=== PATIENT | male | born 1965 | race Caucasian/White ===

== ENCOUNTER 2017-07-12 16:24 | Emergency (ER) | payer OTHER ==
[~2017-07-12] VITALS: Ht 175.3 cm; Wt 85.6 kg
[~2017-07-12 16:24] MED LIST: ASPI81TA28 PO; ATOR-26 PO; CLON1TAB3 PO; ISOS60TA25 PO; LISI-725 PO; LORA-741 PO; METO-551 PO; METO50TA16 PO; NTRGSL/4 UT; PRLSR20 PO; TRAZ50TA35 PO
[2017-07-12 16:28] VITALS: TEMP 37.1; Ht 175.3 cm; Wt 85.6 kg
--- NOTE | 2017-07-12 16:50 | EMERGENCY ROOM VISIT NOTE ---
History First contact with patient: 16:31 Chief Complaint: FLU LIKE SX Stated Complaint: FLU History of Present Illness The patient is a 52 year old male who presents to the Emergency Room with complaints of flu like symptoms which started yesterday. c/o dry cough, headache, vomiting X2, fevers/chills and sweating. denies chest tightness or difficulty breathing or wheezing. c/o body aches and headaches. did not receive flu vaccine but was exposed to daughter with flu. h/o smoking - smokes about a pack of cigarettes/day. denies urinary complaints Review of Systems See HPI for pertinent positives & negatives. A total of 10 systems reviewed and were otherwise negative. Past Medical/Surgical History Medical Problems: (1) Cancer (2) Diabetes (3) Heart disease (4) Heart disease (5) History of orthopedic surgery (6) HTN (hypertension) (7) HTN (hypertension) (8) Hyperlipemia (9) [place] (myocardial infarction) (10) Pneumonia (11) Seizure Family History Cancer Diabetes mellitus FH: heart disease Hypertension Social History Smoking Status: Current Every Day Smoker Alcohol Use: occasionally Drug Use: none Marital Status: in relationship Housing Status: lives with family Occupation Status: unemployed Current/Historical Medications Scheduled Aspirin (Aspirin Ec), 81 MG PO DAILY Atorvastatin (Lipitor), 80 MG PO HS Clonazepam (Klonopin), 1 MG PO TID Isosorbide Mononitrate Ext Rel (Imdur Ext Rel), 60 MG PO QAM Lisinopril (Zestril), 20 MG PO DAILY Metoprolol Tartrate (Lopressor), 100 MG PO QAM Metoprolol Tartrate (Lopressor) (Lopressor), 50 MG PO HS Oseltamivir Phosphate (Tamiflu), 75 MG PO BID Scheduled PRN Benzonatate (Tessalon Perles), 100 MG PO Q8 PRN for Cough Nitroglycerin (Nitrostat), 0.4 MG UT UD PRN for Chest Pain Trazodone Hcl (Trazodone), 50 MG PO HS PRN for Sleep Physical Exam Vital Signs Date Time Temp Pulse Resp B/P (MAP) Pulse Ox O2 Delivery O2 Flow Rate FiO2 07/12/17 18:57 74 97 07/12/17 18:07 71 20 136/87 98 Room Air 07/12/17 16:28 37.1 73 20 139/86 97 Room Air Physical Exam GENERAL: Patient is in no acute distress. HEENT: No acute trauma, normocephalic atraumatic, mucous membranes moist, no nasal congestion, no scleral icterus. NECK: No stridor, no adenopathy, no meningismus, trachea is midline. LUNGS: Clear to auscultation bilaterally, no wheeze, no rhonchi, breath sounds equal. HEART: Without murmurs gallops or rubs, regular rate and rhythm. ABDOMEN: Soft, nontender, bowel sounds positive, no hernias, no peritonitis. EXTREMITIES: No cyanosis or edema, full range of motion of all the joints without pain or difficulty, no signs for acute trauma. NEUROLOGIC: Oriented x 3, no acute motor or sensory deficits, no focal weakness. SKIN: No rash, no jaundice, no diaphoresis. Medical Decision & Procedures ER Provider Diagnostic Interpretation: CHEST 2 VIEWS ROUTINE CLINICAL HISTORY: cough dyspnea COMPARISON STUDY: 02/16/2016 FINDINGS: The bones soft tissues and hemidiaphragms are normal. The cardiomediastinal silhouette is normal. The lungs are clear. The pulmonary vasculature is normal. IMPRESSION: Negative chest. Laboratory Results Test 07/12/17 16:45 Influenza Type A (RT-PCR) POS for Influ A (NEG) Influenza Type B (RT-PCR) Neg for Influ B (NEG) Medical Decision Prior records/ancillary studies reviewed. Triage Nursing notes reviewed. Additional history obtained from the patient. The patient's history was concerning for flu like symptoms Differential diagnosis: Etiologies such as viral syndrome, otitis, pharyngitis, pneumonia, influenza, meningitis, urinary tract infection, sepsis, bacteremia, as well as others were entertained. Physical examination: as above ER treatment provided: CXR and influenza serology was obtained On reassessment the patient felt better. Diagnostics interpreted by me: Influenza A was positive Imaging studies: CXR was negative This appears to be consistent with Influenza. By the evaluation outlined above emergent etiologies such as otitis, pharyngitis, pneumonia, meningitis, urinary tract infection, sepsis, bacteremia, as well as others were deemed relatively unlikely. The patient was informed about the findings as listed above. All questions were answered and he was pleased with the treatment. Return instructions were outlined and the patient was discharged in stable condition. Outpatient prescription management: Tamiflu 75 mg BID X5 days Referral: The patient was referred back to their primary care physician for follow-up in 2 to 3 days for a recheck of the current condition. 52-year-old male presented with flulike symptoms with fevers/chills, body aches and was exposed to influenza. Chest x-ray was obtained which was negative for any pneumonia. Influenza serology came back positive for influenza A. He was discharged in stable condition with Tamiflu 75 mg twice a day for 5 days and recommended to follow-up with his PCP in the next 2 or 3 days Impression Primary Impression: Influenza A Departure Information Prescriptions Benzonatate (Tessalon Perles) 100 Mg Cap 100 MG PO Q8 Y for Cough, #20 CAP Prov: Ulisses Lockett M.D. 07/12/17 Oseltamivir Phosphate (Tamiflu) 75 Mg Cap 75 MG PO BID, #10 CAP Prov: Ulisses Lockett M.D. 07/12/17 Referrals Philippe Leon M.D. (PCP) Patient Instructions My [facility] Resident Tracking Resident Involvement: Resident Care Provided Care Provided: Adult ED
--- NOTE | 2017-07-12 17:07 | DIAGNOSTIC IMAGING REPORT ---
CHEST 2 VIEWS ROUTINE CLINICAL HISTORY: cough dyspnea COMPARISON STUDY: 02/16/2016 FINDINGS: The bones soft tissues and hemidiaphragms are normal. The cardiomediastinal silhouette is normal. The lungs are clear. The pulmonary vasculature is normal. IMPRESSION: Negative chest. The above report was generated using voice recognition software. It may contain grammatical, syntax or spelling errors. Electronically signed by: Lm Olguin M.D. 07/12/2017 5:06 PM Dictated Date/Time: 07/12/2017 5:05 PM
[2017-07-12 18:01] LABS: INFLUENZA A PCR POS for Influ A (NEG); INFLUENZA B PCR Neg for Influ B (NEG)
--- NOTE | 2017-07-12 18:06 | EMERGENCY ROOM VISIT NOTE ---
History Report prepared by Aj: Rhonda Lux Under the Supervision of: Dr. Ulisses Lockett M.D. First contact with patient: 16:31 Chief Complaint: FLU LIKE SX Stated Complaint: FLU History of Present Illness The patient is a 52 year old male who presents to the Emergency Room with complaints of worsening flu-like symptoms since yesterday. The patient reports headache, cough, congestion, vomiting, and diffuse body aches. He has felt feverish but has not checked his temperature. His daughter was recently sick with similar symptoms and diagnosed with influenza. He has been taking Tylenol for his symptoms. The patient denies chest pain and shortness of breath. Source of History: patient Onset: yesterday Position: other (global) Quality: other (flu-like) Timing: worsening Modifying Factors (Relieving): tylenol Associated Symptoms: + headache, + cough, + vomiting, No chest pain, No SOB Review of Systems See HPI for pertinent positives & negatives. A total of 10 systems reviewed and were otherwise negative. Past Medical & Surgical Medical Problems: (1) Cancer (2) Diabetes (3) Heart disease (4) Heart disease (5) History of orthopedic surgery (6) HTN (hypertension) (7) HTN (hypertension) (8) Hyperlipemia (9) [place] (myocardial infarction) (10) Pneumonia (11) Seizure Family History Cancer Diabetes mellitus FH: heart disease Hypertension Social History Smoking Status: Current Every Day Smoker Alcohol Use: occasionally Drug Use: none Marital Status: in relationship Housing Status: lives with family Occupation Status: unemployed Current/Historical Medications Scheduled Aspirin (Aspirin Ec), 81 MG PO DAILY Atorvastatin (Lipitor), 80 MG PO HS Clonazepam (Klonopin), 1 MG PO TID Isosorbide Mononitrate Ext Rel (Imdur Ext Rel), 60 MG PO QAM Lisinopril (Zestril), 20 MG PO DAILY Metoprolol Tartrate (Lopressor), 100 MG PO QAM Metoprolol Tartrate (Lopressor) (Lopressor), 50 MG PO HS Scheduled PRN Nitroglycerin (Nitrostat), 0.4 MG UT UD PRN for Chest Pain Trazodone Hcl (Trazodone), 50 MG PO HS PRN for Sleep Allergies Coded Allergies: Morphine (Verified Adverse Reaction, Intermediate, NAUSEA/VOMITING, ) Physical Exam Vital Signs Date Time Temp Pulse Resp B/P (MAP) Pulse Ox O2 Delivery O2 Flow Rate FiO2 07/12/17 16:28 37.1 73 20 139/86 97 Room Air Physical Exam Constitutional: Vital signs reviewed. Eyes: Pupils are equal round reactive to light. Conjunctiva are noninjected. ENT: Pharynx is clear without erythema or exudate. Mucous membranes are moist. Neck supple without meningeal signs. Respiratory: Clear to auscultation bilaterally. Breath sounds are equal bilaterally. Cardiovascular: Regular rate and rhythm. No rubs or gallops. GI: Soft, nondistended and nontender. Bowel sounds are present. Musculoskeletal: No peripheral edema. No lower extremity tenderness. Integumentary: No cyanosis. Neurological: The patient is awake and alert. No focal deficits. Psychiatric: Normal affect. Medical Decision & Procedures Laboratory Results Test 07/12/17 16:45 Influenza Type A (RT-PCR) POS for Influ A (NEG) Influenza Type B (RT-PCR) Neg for Influ B (NEG) ED Course 1631: The patient was evaluated in room C5. A complete history and physical exam was performed. Medical Decision This is a 52-year-old male who presents with flulike symptoms. Differential diagnosis includes influenza, viral syndrome, bronchitis, pneumonia. I did perform a limited focused review of portions of the patient's old chart on the electronic medical record. The patient has had no recent pertinent visits to this hospital. I did evaluate the patient as noted above. I did order and personally review the patient's chest x-ray as described above. There is no evidence of pneumonia. Flu testing is positive for influenza A. Patient was informed of his test results. He was discharged with a prescription for Tamiflu and advised follow-up with his doctor. Resident Physician Supervision Note: I did evaluate and examine this patient myself. I did guide management for the patient. I agree with the resident's Dr. Todd assessment as discussed. Please see the resident's dictation for further details. Medication Reconcilliation Current Medication List: was personally reviewed by me Blood Pressure Screening Patient's blood pressure: Elevated blood pressure Blood pressure disposition: Referred to PCP Impression Primary Impression: Influenza A Scribe Attestation The scribe's documentation has been prepared under my direct and personally reviewed by me in its entirety. I confirm that the note above accurately reflects all work, treatment, procedures, and medical decision making performed by me. Departure Information Dispostion Home / Self-Care Referrals Philippe Leon M.D. (PCP) Patient Instructions My [facility]
[2017-07-12 18:07] VITALS: BP 136/87
[2017-07-12] MEDS ORDERED: BENZ100C84 PO (18:44)
[2017-07-12] MEDS ORDERED: OSEL75CA23 PO (18:44)
[2017-07-12 18:57] VITALS: PULSE 74; O2SAT 97
== END 2017-07-12 18:58 | disposition home or self-care (01) ==
LOC: C.EDB 16:26 → C.EDC 18:58
DX: J10.1 Influenza due to other identified influenza virus with other respiratory manifestations (principal); Z85.9 Personal history of malignant neoplasm, unspecified; E11.9 Type 2 diabetes mellitus without complications; I10 Essential (primary) hypertension; E78.5 Hyperlipidemia, unspecified; I25.2 Old myocardial infarction; Z87.01 Personal history of pneumonia (recurrent); Z80.9 Family history of malignant neoplasm, unspecified; Z83.3 Family history of diabetes mellitus; Z82.49 Family history of ischemic heart disease and other diseases of the circulatory system; F17.210 Nicotine dependence, cigarettes, uncomplicated; Z79.82 Long term (current) use of aspirin; Z79.899 Other long term (current) drug therapy; Z88.5 Allergy status to narcotic agent

== ENCOUNTER 2018-01-16 18:57 | Emergency (ER) | payer OTHER ==
[~2018-01-16] VITALS: Ht 175.3 cm; Wt 84.3 kg
[~2018-01-16 18:57] MED LIST changes: -ASPI81TA28 PO; +CLON1TAB10 PO; -CLON1TAB3 PO; -LORA-741 PO; -NTRGSL/4 UT; -PRLSR20 PO
[2018-01-16 19:03] VITALS: TEMP 36.5; Ht 175.3 cm; Wt 84.3 kg
[2018-01-16] MEDS ORDERED: OXYCODONE HCL IR 5 MG TAB (IMMEDIATE RELEASE) PO STA (19:12)
[2018-01-16] MEDS ORDERED: LORAZEPAM 0.5 MG TAB SL STA (19:12)
[2018-01-16] MEDS ORDERED: ASPI81TA28 PO (19:54)
[2018-01-16] MEDS ORDERED: NTRGSL/4 UT (19:54)
--- NOTE | 2018-01-16 20:02 | DIAGNOSTIC IMAGING REPORT ---
CT OF THE HEAD WITHOUT CONTRAST CLINICAL HISTORY: Fall. Evaluate for bleed. COMPARISON STUDY: No previous studies for comparison. CT DOSE: 537.48 mGy.cm TECHNIQUE: Helical axial images of the head were obtained without IV contrast. Automated exposure control was utilized for the study. A dose lowering technique was utilized adhering to the principles of ALARA. FINDINGS: No acute intracranial hemorrhage, midline shift or mass effect is present. Ventricular system is normal. The basilar cisterns are patent. No extra-axial collections are present. Moderate white matter hypodensities are noted. There are no findings to suggest acute dural sinus thrombosis or acute territorial infarct. There is extensive intracranial vascular calcification. There is no calvarial fracture. There may be trace fluid within the right mastoid air cells. IMPRESSION: 1. No acute intracranial findings. 2. No calvarial fracture. 3. Moderate white matter hypodensity which is nonspecific although favors small vessel ischemic disease, greater than expected for age. Electronically signed by: Ramon Hutchison M.D. 01/16/2018 8:00 PM Dictated Date/Time: 01/16/2018 7:57 PM
--- NOTE | 2018-01-16 20:56 | DIAGNOSTIC IMAGING REPORT ---
R RIBS UNILATERAL WITH PA CHEST CLINICAL HISTORY: Right rib pain following fall. COMPARISON STUDY: Chest radiograph July 12, 2017. FINDINGS: There is no pneumothorax or pleural effusion. There is an acute minimally displaced fracture of the anterior right sixth rib as well as a suspected acute minimally displaced fracture of the anterior right seventh rib. No additional acute right rib fractures are identified. IMPRESSION: Acute minimally displaced anterior right sixth and seventh rib fractures. No pneumothorax. Electronically signed by: Ramon Hutchison M.D. 01/16/2018 8:54 PM Dictated Date/Time: 01/16/2018 8:52 PM
[2018-01-16] MEDS ORDERED: OXYC-90 PO (21:03)
[2018-01-16] MEDS ORDERED: OXYCODONE IR HOME PACK PO ONE (21:15)
[2018-01-16 21:17] VITALS: BP 142/91; PULSE 69; O2SAT 97
--- NOTE | 2018-01-17 00:51 | EMERGENCY ROOM VISIT NOTE ---
History Report prepared by Aj: Roxi Cross Under the Supervision of: Dr. Ulisses Lockett M.D. First contact with patient: 19:07 Chief Complaint: FALL Stated Complaint: FALL OFF LADDER, RIGHT-SIDED RIB PAIN History of Present Illness The patient is a 52 year old male who presents to the Emergency Room with complaints of an episode of a fall that occurred 3 days ago. The patient states the he fell off of a 3-foot ladder, and he hit his right chest on a rock. The patient states that he also hit his head. He denies any headache, but he states that he has pain on his right hinduism. The patient states that he cannot sleep from the sharp chest pain, and he's just laid in bed for the past 3 days. He denies any shortness of breath, abdominal pain, and neck pain. He states that he "didn't remember if he lost consciousness." The patient notes that he attempted to drink beer to help with the pain, but states that he does not drink every day. He states that he also tried taking Tylenol with no relief. The patient notes that he doesn't take a blood thinner. Source of History: patient Onset: Three days ago Position: chest Quality: sharp Timing: constant Modifying Factors (Worsening): movement Associated Symptoms: No headache, No neck pain, No SOB Review of Systems See HPI for pertinent positives & negatives. A total of 10 systems reviewed and were otherwise negative. Past Medical & Surgical Medical Problems: (1) Cancer (2) Diabetes (3) Heart disease (4) Heart disease (5) History of orthopedic surgery (6) HTN (hypertension) (7) HTN (hypertension) (8) Hyperlipemia (9) [place] (myocardial infarction) (10) Pneumonia (11) Seizure Family History Cancer Diabetes mellitus FH: heart disease Hypertension Social History Smoking Status: Current Every Day Smoker Alcohol Use: occasionally Drug Use: none Marital Status: in relationship Housing Status: lives with family Occupation Status: unemployed Current/Historical Medications Scheduled Aspirin (Aspirin Ec), 81 MG PO DAILY Atorvastatin (Lipitor), 80 MG PO HS Clonazepam (Klonopin), 1 MG PO TID Isosorbide Mononitrate Ext Rel (Imdur Ext Rel), 60 MG PO QAM Lisinopril (Zestril), 20 MG PO DAILY Metoprolol Tartrate (Lopressor), 100 MG PO QAM Metoprolol Tartrate (Lopressor) (Lopressor), 50 MG PO HS Scheduled PRN Nitroglycerin (Nitrostat), 0.4 MG UT UD PRN for Chest Pain Oxycodone Ir (Roxicodone Ir), 5 MG PO Q4H PRN for Pain Trazodone Hcl (Trazodone), 50 MG PO HS PRN for Sleep Allergies Coded Allergies: Morphine (Verified Adverse Reaction, Intermediate, NAUSEA/VOMITING, ) Physical Exam Vital Signs Date Time Temp Pulse Resp B/P (MAP) Pulse Ox O2 Delivery O2 Flow Rate FiO2 01/16/18 21:17 69 18 142/91 97 01/16/18 19:03 36.5 75 18 137/83 99 Room Air Physical Exam Constitutional: Vital signs reviewed. Eyes: Pupils are equal round reactive to light. Conjunctiva are noninjected. ENT: Pharynx is clear without erythema or exudate. Mucous membranes are moist. Neck supple without meningeal signs. Respiratory: Clear to auscultation bilaterally. Breath sounds are equal bilaterally. Cardiovascular: Regular rate and rhythm. No rubs or gallops. GI: Soft, nondistended and nontender. Bowel sounds are present. Musculoskeletal: No peripheral edema. Old bruise to the right middle anterior chest with tenderness, no crepitus, or flail segment. No tenderness in the hips or extremities. No midline tenderness to the cervical spine. Integumentary: No cyanosis. Neurological: The patient is awake and alert. Cranial nerves II-XII are intact. Motor is 5 out of 5 all extremities. Sensation is intact to light touch all extremities. Normal speech. No pronator drift. Psychiatric: Normal affect. Medical Decision & Procedures ER Provider Diagnostic Interpretation: Radiology results as stated below per my review and the radiologist's interpretation: R RIBS UNILATERAL WITH PA CHEST CLINICAL HISTORY: Right rib pain following fall. COMPARISON STUDY: Chest radiograph July 12, 2017. FINDINGS: There is no pneumothorax or pleural effusion. There is an acute minimally displaced fracture of the anterior right sixth rib as well as a suspected acute minimally displaced fracture of the anterior right seventh rib. No additional acute right rib fractures are identified. IMPRESSION: Acute minimally displaced anterior right sixth and seventh rib fractures. No pneumothorax. Electronically signed by: Ramon Hutchison M.D. 01/16/2018 8:54 PM Dictated Date/Time: 01/16/2018 8:[address] OF THE HEAD WITHOUT CONTRAST CLINICAL HISTORY: Fall. Evaluate for bleed. COMPARISON STUDY: No previous studies for comparison. CT DOSE: 537.48 mGy.cm TECHNIQUE: Helical axial images of the head were obtained without IV contrast. Automated exposure control was utilized for the study. A dose lowering technique was utilized adhering to the principles of ALARA. FINDINGS: No acute intracranial hemorrhage, midline shift or mass effect is present. Ventricular system is normal. The basilar cisterns are patent. No extra-axial collections are present. Moderate white matter hypodensities are noted. There are no findings to suggest acute dural sinus thrombosis or acute territorial infarct. There is extensive intracranial vascular calcification. There is no calvarial fracture. There may be trace fluid within the right mastoid air cells. IMPRESSION: 1. No acute intracranial findings. 2. No calvarial fracture. 3. Moderate white matter hypodensity which is nonspecific although favors small vessel ischemic disease, greater than expected for age. Electronically signed by: Ramon Hutchison M.D. 01/16/2018 8:00 PM Dictated Date/Time: 01/16/2018 7:57 PM Medications Administered Medications (Trade) Dose Ordered Sig/John Route Start Time Stop Time Status Last Admin Dose Admin Oxycodone HCl (Roxicodone Immediate Rel Tab) 5 mg NOW STAT PO 01/16/18 19:12 01/16/18 19:15 DC 01/16/18 19:26 5 MG Lorazepam (Ativan Tab) 0.5 mg NOW STAT SL 01/16/18 19:12 01/16/18 19:15 DC 01/16/18 19:26 0.5 MG Oxycodone HCl (Roxicodone Immediate Rel 5MG Home Pack) 1 homepack UD ONCE PO 01/16/18 21:15 01/16/18 21:16 DC 01/16/18 21:15 1 HOMEPACK ED Course 1907: The patient was evaluated in room B3. A complete history and physical exam was performed. 1911: Oxycodone HCl 5 mg PO, Lorazepam 0.5 mg SL 2054: I reevaluated the patient, and he called to attention a rash he's had on his back. It looks very itchy. He had a 4 by 8 cm oval lesion consistent with tinea corporis. He was advised to take over the counter fungal cream twice a day. 2058: Upon reevaluation, the patient appeared to have improvement of his symptoms. I discussed tonight's findings with him. He verbalized agreement of the treatment plan. I discussed with him precautions for using oxycodone. He stated that he's not taking his Klonopin anymore. The patient was discharged home. 2114: Ordered Oxycodone HCl 1 homepack PO. Medical Decision This is a 52-year-old male who presents with injuries after fall. Differential diagnosis includes rib fracture, contusion, pneumothorax, intracranial hemorrhage, concussion, skull fracture. I did perform a limited focused review of portions of the patient's old chart on the electronic medical record. The patient has had no recent pertinent visits to this hospital. I did evaluate the patient as noted above. The patient is presenting with injuries after a fall. He has had pain and right-sided rib pain. I did treat him with oxycodone 1 tab p.o. He complained of severe anxiety with close spaces and he was given Ativan 0.5 mg sublingually. I did order and personally review the patient's rib and chest x-ray as described above. He does have 2 rib fractures. I did order a CT of the head. I did review the images myself as well as the radiology report as described above. There is no evidence of acute abnormality. I did discuss the test results with the patient. He was given precautions regarding use of oxycodone, especially with alcohol and benzodiazepines. He does state that he is no longer taking Klonopin. He was given a home pack for oxycodone and a prescription. He was advised to follow- up with his doctor. He was given an incentive spirometer. Of note, on reevaluation he complained of a rash to his back which is very itchy. He has tinea corporis and was advised to use Lotrimin cream for 2 weeks twice a day. Head Trauma GCS Score: 15 Medication Reconcilliation Current Medication List: was personally reviewed by me Blood Pressure Screening Patient's blood pressure: Elevated blood pressure Blood pressure disposition: Elevated BP felt to be situational Impression Primary Impression: Fracture of rib of right side Additional Impressions: Acute head injury Tinea corporis Scribe Attestation The scribe's documentation has been prepared under my direct and personally reviewed by me in its entirety. I confirm that the note above accurately reflects all work, treatment, procedures, and medical decision making performed by me. Departure Information Dispostion Home / Self-Care Prescriptions Oxycodone Ir (Roxicodone Ir) 5 Mg Tab 5 MG PO Q4H Y for Pain, #20 TAB Prov: Ulisses Lockett M.D. 01/16/18 Referrals Philippe Leon M.D. (PCP) Forms HOME CARE DOCUMENTATION FORM, IMPORTANT VISIT INFORMATION Patient Instructions My [facility] Additional Instructions You have been examined and treated today on an emergency basis only. This is not a substitute for, or an effort to provide, complete comprehensive medical care. It is impossible to recognize and treat all injuries or illnesses in a single emergency department visit. It is therefore important that you follow up closely with your physician. Call as soon as possible for an appointment. Return for worsening symptoms or if you develop difficulty breathing, vomiting or any other concerning symptoms. Apply [id number] Lotrimin cream to your rash twice a day for up to 2 weeks. Problem Qualifiers Primary Impression: Fracture of rib of right side Encounter type: initial encounter Rib fracture type: multiple ribs Fracture type: closed Qualified Codes: S22.41XA - Multiple fractures of ribs , right side, initial encounter for closed fracture Additional Impressions: Acute head injury Encounter type: initial encounter Qualified Codes: S09.90XA - Unspecified injury of head, initial encounter
== END 2018-01-16 21:18 | disposition home or self-care (01) ==
LOC: C.EDB 18:58
DX: S22.41XA Multiple fractures of ribs, right side, initial encounter for closed fracture (principal); S09.90XA Unspecified injury of head, initial encounter; S20.20XA Contusion of thorax, unspecified, initial encounter; W11.XXXA Fall on and from ladder, initial encounter; W22.8XXA Striking against or struck by other objects, initial encounter; B35.4 Tinea corporis; E11.9 Type 2 diabetes mellitus without complications; I11.9 Hypertensive heart disease without heart failure; I25.2 Old myocardial infarction; F17.200 Nicotine dependence, unspecified, uncomplicated; Z79.82 Long term (current) use of aspirin; Z79.899 Other long term (current) drug therapy; Z88.6 Allergy status to analgesic agent

== ENCOUNTER 2019-04-13 23:30 | Inpatient (IN) ==
[2019-04-14] MEDS ORDERED: SODIUM CHLORIDE 0.9% 1000ML 1,000 ML IV SCH
[2019-04-14] MEDS ORDERED: ONDANSETRON INJ 2 MG/ML 2 ML VIAL IV STA
[2019-04-14 00:25] LABS: Basophils # (auto) 0.03 K/uL (0-0.2); Basophils % (auto) 0.5 %; Eosinophils # (auto) 0.11 K/uL (0-0.5); Eosinophils % (auto) 1.9 %; Hematocrit (blood only) 42.2 % (42-52); Hemoglobin 15.2 g/dL (14.0-18.0); Lymphocytes # (auto) 1.73 K/uL (1.2-3.4); Lymphocytes % (auto) 29.9 %; Mean Corpuscular Hemoglobin 36.5 pg (25-34); Mean Corpuscular Volume 101.4 fL (80-100); Monocytes % (auto) 8.7 %; Neutrophils # (auto) 3.41 K/uL (1.4-6.5); Platelet Count 135 K/uL (130-400); RDW Coefficient of Variation 12.5 % (11.5-14.5); RDW Standard Deviation 45.8 fL (36.4-46.3); Red Blood Count 4.16 M/uL (4.7-6.1); White Blood Count 5.78 K/uL (4.8-10.8)
[2019-04-14 00:32] LABS: INR 1.1 (0.9-1.1)
[2019-04-14 00:51] LABS: Albumin Level 4.2 gm/dl (3.4-5.0); BUN Creatinine Ratio 6.4 (10-20); Calcium 9.1 mg/dl (8.5-10.1); Creatinine Clr Calc Pharmacy 86.2 ml/min; Est GFR (African American) 100.9; Est GFR (Non-African American) 87.1
[2019-04-14 00:54] LABS: Albumin Globulin Ratio 1.1 (0.9-2); Bilirubin,Total 0.5 mg/dl (0.2-1); Globulin 3.8 gm/dl (2.5-4.0)
[2019-04-14 01:19] LABS: Appearance Urine Clear (Clear); Bacteria Urine Automated Negative (Negative); Bilirubin Urine Negative (Negative); Blood Urine 1+ (Negative); Color Urine Yellow; Glucose Urine UA Negative (Negative); Ketones Urine Negative (Negative); Leukocyte Esterase Urine Negative (Negative); Nitrite Urine Negative (Negative); Protein Urine Negative (Negative); RBC Urine Automated 0-4 /hpf (0-4); Specific Gravity Urine 1.012 (1.000-1.030); Urobilinogen Urine Negative (Negative); pH Urine 5.5 (4.5-7.5)
[2019-04-14] MEDS ORDERED: IOVERSOL 100ml IV PRN (01:32)
[2019-04-14] MEDS ORDERED: FAMOTIDINE 20MG IV PUSH 20 MG/5 ML SYR IV STA (02:04)
[2019-04-14] MEDS ORDERED: SODIUM CHLORIDE 0.9% 500 ML IV ONE (02:04)
[2019-04-14] MEDS ORDERED: MULTI-VITAMIN INFUSION 10 ML, THIAMINE HCL 100 MG, FOLIC ACID 1 MG in SODIUM CHLORIDE 0... IV ONE ×2 (02:10→12:15)
[2019-04-14] MEDS ORDERED: PROMETHAZINE HCL 6.25 MG in SODIUM CHLORIDE 0.9% 50 ML IV STA (02:32)
[2019-04-14] MEDS ORDERED: PROMETHAZINE 12.5 MG/50.5 ML NSS IV ONE (02:39)
[2019-04-14] MEDS ORDERED: PROMETHAZINE 6.25 MG/50.25 ML NSS IV ONE (02:39)
--- NOTE | 2019-04-14 03:21 | History & Physical Report ---
Date of Service April 14, 2019 Assessment & Plan (1) Acute pancreatitis: Mr. Zavala is a 53-year-old male with a past medical history of CAD s/p NSTEMI x2, hypertension, GERD, and anxiety who presents to the emergency department due to a 24-hour history of abdominal pain, nausea and vomiting. ED course: 1.5 L normal saline bolus, 20 mg IV Pepcid, 4 mg IV Zofran, 1 banana bag, 6.25 mg IV Phenergan Acute pancreatitis -Admit to med/surg with telemetry monitoring -Lipase 15,681, and CT scan consistent with acute pancreatitis -No gallstones appreciated on CT scan, suspect pancreatitis is secondary to alcohol abuse -N.p.o. -LR at 200 mls/hr x 2 bags ordered -Tylenol and 15 mg IV Toradol every 6 hours ordered as needed for pain -Zofran 4 mg IV ordered every 6 hours as needed for nausea Alcohol abuse -Patient reportedly drinks 15 beers per day, and has done so for > 20 years -Alcohol level 95.3 on admission -Per patient, no past history of alcohol withdrawals or seizures -Daily 100 mg p.o. thiamine and 1 mg p.o. folate ordered -AWSS with PRN Ativan ordered Transaminitis -LFTs mildly elevated. AST 69, and ALT 123 -Suspect this is related to alcohol abuse -recheck LFTs tomorrow Gastritis -CT scan shows wall thickening of the stomach, potentially due to gastritis -Patient reports epigastric pain, could also have an element of gastritis as well -Pantoprazole 40 mg p.o. twice daily ordered Hyponatremia -Sodium 123 on admission -Consistent with beer potomania -Monitor BMP CAD s/p NSTEMI x2/Hypertension/Hyperlipidemia -Most recent NSTEMI was in 2010, patient has declined stents -Continue home aspirin, atorvastatin, isosorbide mononitrate, lisinopril and metoprolol -last ECHO in 2012 -> EF of 50% Anxiety -Continue home clonazepam 3 times daily Tobacco abuse -Patient is a longtime smoker, smoking 1 pack/day -Patient declined nicotine patch Diabetes mellitus -Listed as diagnosis on patient's chart, however patient does not take any medications for this -Glucose 101 on admission -Unable to find any recent HbA1c, this will be ordered with a.m. labs CODE STATUS: Full DVT prophylaxis: SCDs Disposition: Admit to med/surg with telemetry monitoring (2) Tobacco use: (3) Alcohol abuse, continuous: (4) Anxiety: (5) Hyperlipemia: (6) HTN (hypertension): (7) CAD in [place]: (8) Elevated liver enzymes: (9) Esophageal reflux: (10) Heart disease: (11) Gastritis: (12) Hyponatremia: History of Present Illness Chief Complaint: Abdominal pain Primary Care Provider: Philippe Leon MD Mr. Zavala is a 53-year-old male with a past medical history of CAD s/p NSTEMI x2, hypertension, GERD, and anxiety who presents to the emergency department due to a 24-hour history of abdominal pain, nausea and vomiting. He states that his pain began suddenly last night, improved, and then worsened again today. He states the pain is constant, and over the left side of his abdomen. He reports the pain is as severe as 8/10. He also notes a subjective fever. He reports associated nausea and vomiting. He notes that his bowels have been moving normally, denies the presence of blood in his stools or vomit. He denies a past history of pancreatitis. Of note, he has a long-standing history of alcohol abuse. He states that he drinks at least 15 beers a day, and has done so for over 20 years. He denies a prior history of alcohol withdrawals or seizures. He is also a longtime smoker, and smokes 1 pack/day. With regards to his cardiac history, he follows with Dr. Shultz. His daughter states that he declined having stents placed in the past. Allergies Allergy/AdvReac Type Severity Reaction Status Date / Time morphine AdvReac Intermediate NAUSEA/VOMI Verified 04/14/19 00:37 TING Home Medications Home Medications Medication Instructions Recorded Confirmed Type aspirin 81 mg tablet 81 mg PO DAILY tab 02/01/19 04/14/19 History atorvastatin 80 mg tablet 80 mg PO HS #90 tab 02/01/19 04/14/19 History clonazepam 1 mg tablet 1 mg PO TID #20 tab 02/01/19 04/14/19 History isosorbide mononitrate 60 mg 60 mg PO DAILY #30 tab 02/01/19 04/14/19 History tablet,extended release 24 hr metoprolol tartrate 50 mg tablet 150 mg PO UD #90 tab 02/01/19 04/14/19 History omeprazole 20 mg capsule,delayed 20 mg PO DAILY #60 cap 02/01/19 04/14/19 History release nitroglycerin 0.4 mg sublingual 0.4 mg SL Q5M PRN #25 tab 02/23/19 04/14/19 Rx tablet lisinopril 40 mg tablet 40 mg PO DAILY #90 tab 04/12/19 04/14/19 Rx Past Med/Surg History Social History Preferred Language: Italian Communication Ability: Effective 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 Beliefs That Will Affect Care: None Current Living Situation: Family Current Living Situation Comment: with daughter Haley Other Information That Helps Us Care for You: No Feels Safe at Home: Yes Safety Concerns: Feels Safe At This Time Smoking Status: Current every day smoker Tobacco Type: cigarettes ; Age Started Using Tobacco: 14 ; packs per day: 0.5 ; Cigarettes Per Day: 1 PPD ; Do You Dip or Chew Tobacco: No ; Second Hand Exposure: Yes ; Tobacco Cessation Education Requested by Patient: No Hx Alcohol Use: Yes Alcohol type: beer Hx Substance Use: No Review of Systems Constitutional: + fever (subjective) Respiratory: no cough and no dyspnea Cardiovascular: no chest pain, no palpitations, no lightheadedness, no syncope, no edema and no calf pain Gastrointestinal: + abdominal pain, + nausea and + vomiting; no hematemesis and no change in bowel habits Genitourinary: no dysuria and no difficulty urinating Musculoskeletal: no back pain Integumentary: no rash and no lesions Neurologic: no localized weakness Physical Exam Constitutional: WD/WN, vitals as above no acute distress Eyes: PERRL, conjunctivae normal, anicteric sclerae ENMT: external ear and nose normal, oropharynx normal Respiratory: normal respiratory effort, lungs clear to auscultation Cardiovascular: RRR, no murmur, no edema Vessels: posterior tibial pulses present and dorsalis pedis pulses present Extremities: no calf tenderness, no pedal edema and no edema Gastrointestinal (Abdomen): Percussion/Palpation: + abdomen tender (Tender in epigastric region, as well as left upper abdomen) and abdomen soft; no guarding and abdomen not rigid Musculoskeletal: no cyanosis or clubbing, extremities motor strength 5/5 Skin: no rashes, warm and dry Neurologic: PERRL, EOMI, accommodation nl, no face palsy, no dysarthria Results & Data Vital Signs (Past 12 Hours) Vital Signs Temp Pulse Resp BP Pulse Ox 04/14/19 02:30 83 17 155/99 H 100 04/14/19 02:00 74 12 161/94 H 99 04/14/19 01:30 72 17 166/93 H 98 04/14/19 01:00 70 14 157/86 H 98 04/14/19 00:33 71 15 164/94 H 98 04/14/19 00:03 96 04/14/19 00:00 72 15 144/90 H 97 04/13/19 23:58 69 13 154/92 H 97 04/13/19 23:33 36.4 C L 80 16 156/96 H 98 Code Status & VTE Plan VTE Prophylaxis Plan VTE Prophylaxis will be ordered: Yes Supervising Physician Co-Signing Physician Notes Patient seen and examined, chart reviewed, case discussed with Dr. Caldwell and I agree with her assessment and plan as documented above. Briefly patient is a 53-year-old male with history of significant alcohol abuse presenting with alcohol induced pancreatitis. Abdominal pain epigastric 8 out of 10 in severity On exam he is afebrile, mildly hypertensive otherwise hemodynamically stable in no acute distress Resting comfortably HEENTnormocephalic atraumatic, pupils equal round reacting, moist mucous membranes Heart+ S1/S2, regular, no M/R/G LungsCTA, no rales/rhonchi/wheezes Abdomenbowel sounds present soft, tender in the epigastric area with voluntary guarding, no rebound Extremitieswarm, well-perfused Labs and images reviewed. Significant for elevated lipase and alcohol levels Assessment/[id number] male with acute alcohol induced pancreatitis Strongly encourage cessation of alcohol N.p.o., IV fluids, pain medication nausea medication as above [facility] protocol for possible withdrawal Protonix 40 mg p.o. twice daily for possible gastritis Remainder of plan as above Resident Activity Tracking Resident Involvement: Resident Care Provided Care Provided: Adult [facility]
[2019-04-14] MEDS ORDERED: LORazepam 1 MG/2 ML VIAL IV PRN (03:37)
[2019-04-14] MEDS ORDERED: LORazepam 1 MG TAB PO PRN (03:37)
[2019-04-14] MEDS ORDERED: ONDANSETRON INJ 2 MG/ML 2 ML VIAL IV PRN (03:37)
[2019-04-14] MEDS ORDERED: MAGNESIUM HYDROXIDE SUSP 30 ML UDC PO PRN (03:37)
[2019-04-14] MEDS ORDERED: KETOROLAC TROMETHAMINE 15 MG/ML VIAL IV PRN (03:37)
[2019-04-14] MEDS ORDERED: ALUMINUM/MAGNESIUM SUSP 30 ML UDC PO PRN (03:37)
[2019-04-14] MEDS ORDERED: NITROGLYCERIN SL 0.4 MG/TAB TAB SL PRN (03:37)
[2019-04-14] MEDS: LACTATED RINGER'S 1,000 ML IV SCH ×4 (04:01→21:48)
[2019-04-14] MEDS: ACETAMINOPHEN 325 MG TAB PO PRN ×2 (04:04→13:09)
--- NOTE | 2019-04-14 05:39 | Emergency Department Note ---
Entered by Carlton Tobin acting as a scribe for Roxie Moscoso DO History of Present Illness General Chief complaint: Vomiting Stated complaint: PAIN IN ABDOMIN, THROWING UP Time Seen by Provider: 04/13/19 23:48 Source: patient and family (daughter) History of Present Illness Onset (ago): day(s) 1 Location: abdomen (left-sided) Radiation: abdomen (lower) Pain Consistency: + intermittent Maximum Pain Intensity: 7 Associated symptoms: + denies other symptoms (black or blood stools) and + nausea/vomiting The patient is a 53 year old M who presents to the Emergency Room with complaints of intermittent abdominal pain that started 1 day ago. The HPI was provided by the patient and his daughter. The patient states that his abdominal pain starts in the left side of his abdomen and radiates to his lower abdomen. He describes his pain as cramping. He notes that the last time he experienced his pain was last night. He adds that he did not experience any pain today, throughout the day. He notes that his abdominal pain returned tonight. He states that he is currently experiencing nausea and vomiting. He denies experiencing any black or bloody stools. He notes that he was drinking tonight and was brought into the ED by his mother. The patients daughter states that the patient has history of two heart attacks and HTN. She adds that the patient did not get any stents placed after his heart attack because he refused. She adds that the patient does not work due to his heart history. She notes that the patient has chronic eye swelling but refuses to go to his PCP to get it checked out. She states that the patient has a family history of cancer. She adds that the patients father had pancreatic cancer. She states that the patient is currently on Klonopin and baby aspirin. She denies that the patient has a history of diabetes and abdominal surgeries. The patient notes that he smokes a pack of cigarettes per day. Home Medications Home Medications Medication Instructions Recorded Confirmed Type aspirin 81 mg tablet 81 mg PO DAILY tab 02/01/19 04/14/19 History atorvastatin 80 mg tablet 80 mg PO HS #90 tab 02/01/19 04/14/19 History clonazepam 1 mg tablet 1 mg PO TID #20 tab 02/01/19 04/14/19 History isosorbide mononitrate 60 mg 60 mg PO DAILY #30 tab 02/01/19 04/14/19 History tablet,extended release 24 hr metoprolol tartrate 50 mg tablet 150 mg PO UD #90 tab 02/01/19 04/14/19 History omeprazole 20 mg capsule,delayed 20 mg PO DAILY #60 cap 02/01/19 04/14/19 History release nitroglycerin 0.4 mg sublingual 0.4 mg SL Q5M PRN #25 tab 02/23/19 04/14/19 Rx tablet lisinopril 40 mg tablet 40 mg PO DAILY #90 tab 04/12/19 04/14/19 Rx Allergies Allergy/AdvReac Type Severity Reaction Status Date / Time morphine AdvReac Intermediate NAUSEA/VOMI Verified 04/14/19 00:37 TING Past Med/Surg History Social History Preferred Language: Sammarinese Communication Ability: Effective 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 Beliefs That Will Affect Care: None Current Living Situation: Family Current Living Situation Comment: with daughter Haley Other Information That Helps Us Care for You: No Feels Safe at Home: Yes Safety Concerns: Feels Safe At This Time Smoking Status: Current every day smoker Tobacco Type: cigarettes ; Age Started Using Tobacco: 14 ; packs per day: 0.5 ; Cigarettes Per Day: 1 PPD ; Do You Dip or Chew Tobacco: No ; Second Hand Exposure: Yes ; Tobacco Cessation Education Requested by Patient: No Hx Alcohol Use: Yes Alcohol type: beer Hx Substance Use: No Review of Systems See HPI for pertinent positives & negatives. and A total of 10 systems reviewed and were otherwise negative Physical Exam Vital Signs Vital Signs - 24 hr 04/13/19 23:33 04/13/19 23:58 04/14/19 00:00 Temperature 36.4 C L Temperature Source Oral Pulse Rate 80 69 72 Pulse Rate from SpO2 Sensor 70 72 Respiratory Rate 16 13 15 Respiratory Effort / Characteristics Non-Labored Spontaneous Respiratory Depth Normal Respiratory Pattern Regular Blood Pressure 156/96 H 154/92 H 144/90 H Blood Pressure Mean 116 111 108 Blood Pressure Position Sitting Pulse Oximetry 98 97 97 Oxygen Delivery Method Room Air Sepsis Recent Fever Within 48 Hours No Sepsis Action Taken by Nursing No Action Required 04/14/19 00:03 04/14/19 00:33 04/14/19 01:00 Temperature Temperature Source Pulse Rate 71 70 Pulse Rate from SpO2 Sensor 70 66 Respiratory Rate 15 14 Respiratory Effort / Characteristics Respiratory Depth Respiratory Pattern Blood Pressure 164/94 H 157/86 H Blood Pressure Mean 116 122 Blood Pressure Position Pulse Oximetry 96 98 98 Oxygen Delivery Method Room Air Sepsis Recent Fever Within 48 Hours Sepsis Action Taken by Nursing 04/14/19 01:30 04/14/19 02:00 04/14/19 02:30 Temperature Temperature Source Pulse Rate 72 74 83 Pulse Rate from SpO2 Sensor 71 73 78 Respiratory Rate 17 12 17 Respiratory Effort / Characteristics Respiratory Depth Respiratory Pattern Blood Pressure 166/93 H 161/94 H 155/99 H Blood Pressure Mean 98 125 125 Blood Pressure Position Pulse Oximetry 98 99 100 Oxygen Delivery Method Sepsis Recent Fever Within 48 Hours Sepsis Action Taken by Nursing General: Smells of alcohol. HEENT: Head - normocephalic and atraumatic Pupils are equal, round, and reactive to light. Extraocular eye muscles are intact, and sclera are anicteric. Nose - moist nasal mucosa without discharge. Mouth - moist buccal mucosa. Oropharynx is nonerythematous and there is no tonsillar exudate or edema noted. Neck: Supple; no JVD, nuchal rigidity, cervical lymphadenopathy, or auscultated bruits. Heart: Regular rate and rhythm. There is a normal S1 and S2 with no murmurs, clicks, or gallops appreciated. Lungs: Clear to auscultation bilaterally with no wheezes, rales, or rhonchi. Abdomen: Soft, epigastric pain with palpation, nondistended, with good bowel sounds. There are no palpable pulsatile masses or hepatosplenomegaly. There is no guarding, rigidity, or rebound noted. Extremities: No evidence of cyanosis, clubbing, or edema. There are easily palp able peripheral pulses. Skin: warm and dry with good turgor and no rashes. Course Course 2352: The patient was evaluated in room A9B. A complete history and physical exam was performed. An IV lock was initiated and labs were drawn as above. A twelve-lead EKG was obtained as described above. 0001: Ondansetron HCl (Zofran) 4 mg IV 0100: Sodium Chloride (Nss 1000ml) 1,000 mls @ 999 mls/hr IV 0131: Patient went for CT scan of the abdomen/pelvis with IV contrast. 0200: The patient is still complaining of belly pain. The patient will be given a dose of pepcid and saline. The patient will be kept NPO. 0205: Famotidine (Pepcid 20mg Iv Push) 20 mg in 5 mls @ 2.5 mls/min IV. I reviewed the results of the labs and CT scan with the patient and his daughter. 0210: I reviewed the patient's case with Dr. Estelita Parr, [facility] Hospitalist. She will evaluate the patient for further management. Administered Medications Acetaminophen (Tylenol) 650 mg PO Q4H PRN PRN Reason: pain/fever Stop: 05/14/19 03:36 Last Admin: 04/14/19 04:04 Dose: 325 mg Documented by: [id number] Lactated Ringer's (Lr) 1,000 mls @ 200 mls/hr IV .Q5H HE Stop: 04/14/19 13:36 Last Admin: 04/14/19 04:01 Dose: 200 mls/hr Documented by: [id number] Ioversol (Optiray 320 100ml) 93 ml IV ONCE PRN PRN Reason: Interaction Checking Stop: 04/18/19 01:31 Last Admin: 04/14/19 01:33 Dose: 93 ml Documented by: [id number] Discontinued Medications Sodium Chloride (Nss 1000ml) 1,000 mls @ 999 mls/hr IV .Q1H1M HE Stop: 04/14/19 01:00 Last Infusion: 04/14/19 01:15 Dose: 0 mls/hr Documented by: [id number] Admin: 04/14/19 00:08 Dose: 999 mls/hr Documented by: [id number] Famotidine (Pepcid 20mg Iv Push) 20 mg in 5 mls @ 2.5 mls/min IV NOW STA Stop: 04/14/19 02:05 Last Admin: 04/14/19 02:11 Dose: 2.5 mls/min Documented by: [id number] Sodium Chloride (Nss) 500 mls @ 999 mls/hr IV .Q31M ONE Stop: 04/14/19 02:34 Last Infusion: 04/14/19 02:54 Dose: 0 mls/hr Documented by: [id number] Admin: 04/14/19 02:11 Dose: 999 mls/hr Documented by: [id number] Multivitamins 10 ml/ Thiamine HCl 100 mg/ Folic Acid 1 mg/Sodium Chloride 1,011.2 mls @ 1,011.2 mls/hr IV .Q1H ONE Stop: 04/14/19 03:09 Last Infusion: 04/14/19 03:35 Dose: 0 mls/hr Documented by: [id number] Admin: 04/14/19 02:28 Dose: 1,011.2 mls/hr Documented by: [id number] Promethazine HCl 6.25 mg/ (Sodium Chloride) 50.25 mls @ 201 mls/hr IV NOW STA Stop: 04/14/19 02:46 Last Admin: 04/14/19 02:53 Dose: Not Given Documented by: [id number] Ondansetron HCl (Zofran) 4 mg IV NOW STA Stop: 04/14/19 00:01 Last Admin: 04/14/19 00:08 Dose: 4 mg Documented by: [id number] Promethazine HCl (Phenergan) Confirm Administered Dose 12.5 mg IV .STK-MED ONE Stop: 04/14/19 02:40 Last Admin: 04/14/19 02:54 Dose: Not Given Documented by: [id number] Promethazine HCl (Phenergan) Confirm Administered Dose 6.25 mg IV .STK-MED ONE Stop: 04/14/19 02:40 Last Admin: 04/14/19 02:53 Dose: 6.25 mg Documented by: [id number] Medical Decision Making Differential Diagnosis Differential diagnosis includes: ureteral calculi, SBO, diverticulitis, gastr itis, pancreatic mass, pancreatitis Medical Records Attestation: I reviewed the patient's medical records. Home Medications Current Medication List: was personally reviewed by me Laboratory Data Attestation: I reviewed the patient's lab results. Result diagrams: 04/13/19 23:52 04/13/19 23:52 Lab Results 04/13/19 04/13/19 04/13/19 Range/Units 23:52 23:52 23:52 WBC 5.78 (4.8-10.8) K/uL RBC 4.16 L (4.7-6.1) M/uL Hgb 15.2 (14.0-18.0) g/dL Hct 42.2 (42-52) % MCV 101.4 H (80-100) fL MCH 36.5 H (25-34) pg MCHC 36.0 (32-36) g/dL RDW Std Deviation 45.8 (36.4-46.3) fL RDW Coeff of Lisa 12.5 (11.5-14.5) % Plt Count 135 (130-400) K/uL MPV 9.0 (7.4-10.4) fL Immature Gran % (Auto) 0.0 % Neut % (Auto) 59.0 % Lymph % (Auto) 29.9 % [place] % (Auto) 8.7 % Eos % (Auto) 1.9 % Baso % (Auto) 0.5 % Immature Gran # (Auto) 0.00 (0.00-0.02) K/uL Neut # (Auto) 3.41 (1.4-6.5) K/uL Lymph # (Auto) 1.73 (1.2-3.4) K/uL [place] # (Auto) 0.50 (0.11-0.59) K/uL Eos # (Auto) 0.11 (0-0.5) K/uL Baso # (Auto) 0.03 (0-0.2) K/uL PT 11.0 (9.0-12.0) Seconds INR 1.1 (0.9-1.1) Sodium 123 L (136-145) mmol/L Potassium 4.0 (3.5-5.1) mmol/L Chloride 91 L (98-107) mmol/L Carbon Dioxide 21 (21-32) mmol/L Anion Gap 11.0 (3-11) BUN 6 L (7-18) mg/dl Creatinine 0.98 (0.6-1.4) mg/dl Est Cr Clr Drug Dosing 86.2 ml/min Est GFR ( Amer) 100.9 Est GFR (Non-Af Amer) 87.1 BUN/Creatinine Ratio 6.4 L (10-20) Glucose 101 H (70-99) mg/dl Calcium 9.1 (8.5-10.1) mg/dl Total Bilirubin 0.5 (0.2-1) mg/dl AST 69 H (15-37) U/L ALT 123 H (12-78) U/L Alkaline Phosphatase 85 (45-117) U/L Total Protein 8.0 (6.4-8.2) gm/dl Albumin 4.2 (3.4-5.0) gm/dl Globulin 3.8 (2.5-4.0) gm/dl Albumin/Globulin Ratio 1.1 (0.9-2) Lipase 44065 H (73-393) U/L Urine Color Urine Appearance (Clear) Urine pH (4.5-7.5) Ur Specific [place] (1.000-1.030) Urine Protein (Negative) Urine Glucose (UA) (Negative) Urine Ketones (Negative) Urine Blood (Negative) Urine Nitrite (Negative) Urine Bilirubin (Negative) Urine Urobilinogen (Negative) Ur Leukocyte Esterase (Negative) Urine WBC (Auto) (0-5) /hpf Urine RBC (Auto) (0-4) /hpf U Hyaline Cast (Auto) (0-5) /lpf U Epithel Cells (Auto) (0-5) /lpf Urine Bacteria (Auto) (Negative) Ethyl Alcohol mg/dL (0-3) mg/dl 04/14/19 04/14/19 Range/Units 00:08 00:55 WBC (4.8-10.8) K/uL RBC (4.7-6.1) M/uL Hgb (14.0-18.0) g/dL Hct (42-52) % MCV (80-100) fL MCH (25-34) pg MCHC (32-36) g/dL RDW Std Deviation (36.4-46.3) fL RDW Coeff of Lisa (11.5-14.5) % Plt Count (130-400) K/uL MPV (7.4-10.4) fL Immature Gran % (Auto) % Neut % (Auto) % Lymph % (Auto) % [place] % (Auto) % Eos % (Auto) % Baso % (Auto) % Immature Gran # (Auto) (0.00-0.02) K/uL Neut # (Auto) (1.4-6.5) K/uL Lymph # (Auto) (1.2-3.4) K/uL [place] # (Auto) (0.11-0.59) K/uL Eos # (Auto) (0-0.5) K/uL Baso # (Auto) (0-0.2) K/uL PT (9.0-12.0) Seconds INR (0.9-1.1) Sodium (136-145) mmol/L Potassium (3.5-5.1) mmol/L Chloride (98-107) mmol/L Carbon Dioxide (21-32) mmol/L Anion Gap (3-11) BUN (7-18) mg/dl Creatinine (0.6-1.4) mg/dl Est Cr Clr Drug Dosing ml/min Est GFR ( Amer) Est GFR (Non-Af Amer) BUN/Creatinine Ratio (10-20) Glucose (70-99) mg/dl Calcium (8.5-10.1) mg/dl Total Bilirubin (0.2-1) mg/dl AST (15-37) U/L ALT (12-78) U/L Alkaline Phosphatase (45-117) U/L Total Protein (6.4-8.2) gm/dl Albumin (3.4-5.0) gm/dl Globulin (2.5-4.0) gm/dl Albumin/Globulin Ratio (0.9-2) Lipase (73-393) U/L Urine Color Yellow Urine Appearance Clear (Clear) Urine pH 5.5 (4.5-7.5) Ur Specific [place] 1.012 (1.000-1.030) Urine Protein Negative (Negative) Urine Glucose (UA) Negative (Negative) Urine Ketones Negative (Negative) Urine Blood 1+ H (Negative) Urine Nitrite Negative (Negative) Urine Bilirubin Negative (Negative) Urine Urobilinogen Negative (Negative) Ur Leukocyte Esterase Negative (Negative) Urine WBC (Auto) 1-5 (0-5) /hpf Urine RBC (Auto) 0-4 (0-4) /hpf U Hyaline Cast (Auto) 1-5 (0-5) /lpf U Epithel Cells (Auto) 5-10 H (0-5) /lpf Urine Bacteria (Auto) Negative (Negative) Ethyl Alcohol mg/dL 95.3 H (0-3) mg/dl Imaging Data Radiologist's Impression: Radiology results as stated below per my review and the radiologist's interpretation: CT Abdomen & Pelvis With Contrast: Fat stranding and fluid surrounding the pancreas is concerning for acute pancreatitis. No pseudocyst or abscess. No pancreatic duct or biliary dilation. Nonenhancing cyst in the mid left kidney is likely benign. No hydronephrosis or nephrolithiasis. Small fat-containing bilateral inguinal hernias. Normal appendi x. No bowel wall thickening or obstruction. Circumferential wall thickening of the stomach could be due to underdistention. Gastritis cannot be excluded. Moderate atherosclerosis. Blood Pressure Blood Pressure Findings: Elevated blood pressure Blood Pressure Disposition: further management by hospitalist MARCELLA Mendoza The patient is a 53 year old M who presents to the Emergency Room with complaints of intermittent abdominal pain that started 1 day ago. The patient has a history of alcohol abuse. He has a significant past medical history to include previous MIs. The patient's abdominal pain has been worsening and is now associated with some nausea. The patient has an elevated lipase and CT scan of the chest that reveals evidence of pancreatitis as well as gastritis. It was noted that the patient has a significantly low sodium. He was started on a banana bag along with some normal saline solution. He was given Pepcid for his gastritis. Patient's alcohol level was 95. Impression & Plan Pancreatitis, Hyponatremia, Alcohol intoxication, Acute alcoholic gastritis Discharge Plan Visit Data *Final* Discharge Date/Time: 04/14/19 03:26 Chief Complaint: Vomiting Stated Complaint: PAIN IN ABDOMIN, THROWING UP ED Provider: Roxie Moscoso Discharge Problem: Pancreatitis, Hyponatremia, Alcohol intoxication, Acute alcoholic gastritis Patient Disposition: Admitted As Inpatient Discharge Instructions Interventions: ED Discharge Assessment Last Done: 04/14/19 03:26 The scribe's documentation has been prepared under my direction and personally reviewed by me in its entirety. I confirm that the note above accurately reflects all work, treatment, procedures, and medical decision making performed by me.
--- NOTE | 2019-04-14 06:57 | Billing Data ---
Coding Level of Care Code 68969 Initial Inpt Care Lvl 2
[2019-04-14 07:25] LABS: Albumin Globulin Ratio 1.1 (0.9-2); Albumin Level 3.5 gm/dl (3.4-5.0); BUN Creatinine Ratio 5.6 (10-20); Bilirubin,Total 0.9 mg/dl (0.2-1); Calcium 8.5 mg/dl (8.5-10.1); Creatinine Clr Calc Pharmacy 92.8 ml/min; Est GFR (African American) 110.3; Est GFR (Non-African American) 95.2; Globulin 3.3 gm/dl (2.5-4.0); Total Protein 6.8 gm/dl (6.4-8.2)
[2019-04-14 07:57] LABS: Estimated Average Glucose 105 mg/dl; Hemoglobin A1C 5.3 % (4.5-5.6)
[2019-04-14] MEDS: clonazePAM 1 MG TAB PO SCH ×3 (08:06→20:33)
[2019-04-14] MEDS: ASPIRIN 81 MG ECTAB PO SCH (08:08)
[2019-04-14] MEDS: PANTOprazole 40 MG TAB PO SCH ×2 (08:08→20:35)
[2019-04-14] MEDS: ISOSORBIDE MONO EXTENDED REL 60 MG TABCR PO SCH (08:08)
[2019-04-14] MEDS: METOPROLOL TARTRATE 100 MG TAB PO SCH (08:08)
[2019-04-14] MEDS: LISINOPRIL 40 MG TAB PO SCH (08:08)
[2019-04-14 08:20] LABS: Potassium 4.1 mmol/L (3.5-5.1)
--- NOTE | 2019-04-14 09:36 | CT Scan Report ---
CT SCAN OF THE ABDOMEN AND PELVIS WITH IV CONTRAST CLINICAL HISTORY: Left lower quadrant and epigastric abdominal pain. Cramping. COMPARISON STUDY: Abdominal CT dated 09/28/2013. TECHNIQUE: Following the IV administration of 93 cc of Optiray 320, CT scan of the abdomen and pelvi s is performed from the lung bases to the proximal femora. Images are reviewed in the axial, sagittal , and coronal planes. IV contrast was administered without complication. A dose lowering technique wa s utilized adhering to the principles of ALARA. CT DOSE: 389.38 mGy.cm FINDINGS: Lung bases: The heart is normal in size and without pericardial effusion. The coronary arteries are d ensely calcified. There is a small hiatal hernia. The lung bases are clear. Liver: The contrast-enhanced liver is normal in size and contour. The liver demonstrates diffusely di minished attenuation consistent with hepatic steatosis. There is no intrahepatic biliary ductal dilat ation. The hepatic veins and portal veins are patent. Gallbladder: Unremarkable. Spleen: Normal in size and attenuation. Pancreas: The pancreas is edematous and heterogeneous. There is peripancreatic stranding and fluid co nsistent acute pancreatitis. The gland enhances throughout. No organized peripancreatic fluid collect ion is identified. The splenic vein is patent. Adrenal glands: Unremarkable. Kidneys: The contrast enhanced kidneys are normal in size and without hydronephrosis. The kidneys enh ance symmetrically. A 3.2 cm cyst is noted on the left. Abdominal vasculature: The abdominal aorta is normal in course and caliber noting moderate to advance d atherosclerotic calcification. Bowel: There is no bowel obstruction. A chronically torsed epiploic appendage is seen adjacent to the distal descending colon on image #303. Mild fecal retention is noted in the colon. The appendix is well-visualized and normal. Peritoneum: There is no intraperitoneal free air or abdominal ascites. Lymphadenopathy: None. Pelvic viscera: The prostate gland is enlarged and heterogeneous, measuring 5.5 cm in transverse diam eter. There is median lobe hypertrophy. The bladder wall is mildly thickened and trabeculated indicat ing chronic outlet obstruction. There are small bilateral fat-containing inguinal hernias. Skeletal structures: There is mild lumbosacral spondylosis. No lytic or blastic lesions are seen. IMPRESSION: 1. Findings are consistent with acute pancreatitis. Correlation with serum amylase/lipase levels is r ecommended. 2. The pancreas enhances throughout and there is no organized peripancreatic fluid collection. 3. The coronary arteries are densely calcified. Consider nonemergent cardiology follow-up. 4. Hepatic steatosis. 5. Prostatomegaly with evidence of chronic bladder outlet obstruction. Electronically signed by: Thee Barajas M.D. 04/14/2019 9:34 AM
[2019-04-14] MEDS ORDERED: chlordiazePOXIDE ALCOHOL WITHDRAWL 50MG PO STA (11:38)
--- NOTE | 2019-04-14 11:42 | Communication Note ---
Date of Service: April 14, 2019 Patient seen and examined. Patient has no abdominal pain. Mild tenderness to epigastric region on deep palpation. Will remain NPO for remained of the day. Will recheck lipase in AM. Also placed on librium for alcohol withdrawal symptoms, currently he has not scored high enough to need medication for withdrawal.
[2019-04-14] MEDS: chlordiazePOXIDE HCl 25 MG CAP PO SCH ×3 (13:01→23:41)
[2019-04-14] MEDS: ATORVASTATIN 40 MG TAB PO SCH (20:33)
[2019-04-14] MEDS: METOPROLOL TARTRATE 50 MG TAB PO SCH (20:34)
[2019-04-15] MEDS: LACTATED RINGER'S 1,000 ML IV SCH ×4 (03:48→19:18)
[2019-04-15] MEDS: chlordiazePOXIDE HCl 25 MG CAP PO SCH ×3 (06:08→17:05)
[2019-04-15 08:43] LABS: Hematocrit (blood only) 35.9 % (42-52); Hemoglobin 12.7 g/dL (14.0-18.0); Mean Corpuscular Hemoglobin 36.7 pg (25-34); Mean Corpuscular Hgb Conc 35.4 g/dL (32-36); Mean Corpuscular Volume 103.8 fL (80-100); RDW Coefficient of Variation 12.8 % (11.5-14.5); Red Blood Count 3.46 M/uL (4.7-6.1); White Blood Count 3.56 K/uL (4.8-10.8)
[2019-04-15] MEDS: THIAMINE HCL 100 MG TAB PO SCH (08:57)
[2019-04-15] MEDS: FOLIC ACID 1 MG TAB PO SCH (08:57)
[2019-04-15] MEDS: METOPROLOL TARTRATE 100 MG TAB PO SCH (08:58)
[2019-04-15] MEDS: ASPIRIN 81 MG ECTAB PO SCH (08:58)
[2019-04-15] MEDS: ISOSORBIDE MONO EXTENDED REL 60 MG TABCR PO SCH (08:58)
[2019-04-15] MEDS: PANTOprazole 40 MG TAB PO SCH ×2 (08:58→20:57)
[2019-04-15] MEDS: LISINOPRIL 40 MG TAB PO SCH (08:58)
[2019-04-15 09:01] LABS: Mean Platelet Volume 8.9 fL (7.4-10.4); Platelet Count 98 K/uL (130-400); Platelet Estimate Decreased (Normal)
[2019-04-15] MEDS: clonazePAM 1 MG TAB PO SCH ×3 (09:01→20:57)
[2019-04-15 09:50] LABS: BUN Creatinine Ratio 5.9 (10-20); Calcium 9.2 mg/dl (8.5-10.1); Creatinine Clr Calc Pharmacy 78.2 ml/min; Est GFR (African American) 89.7; Est GFR (Non-African American) 77.4
[2019-04-15] MEDS: ACETAMINOPHEN 325 MG TAB PO PRN (14:24)
[2019-04-15] MEDS: ATORVASTATIN 40 MG TAB PO SCH (20:57)
[2019-04-15] MEDS: METOPROLOL TARTRATE 50 MG TAB PO SCH (20:58)
--- NOTE | 2019-04-15 22:40 | Hospitalist Progress Note ---
Date of Service April 15, 2019 Assessment & Plan (1) Acute pancreatitis: Mr. Zavala is a 53-year-old male with a past medical history of CAD s/p NSTEMI x2, hypertension, GERD, and anxiety who presents to the emergency department due to a 24-hour history of abdominal pain, nausea and vomiting. ED course: 1.5 L normal saline bolus, 20 mg IV Pepcid, 4 mg IV Zofran, 1 banana bag, 6.25 mg IV Phenergan Acute pancreatitis -Admit to med/surg with telemetry monitoring -Lipase 15,681, and CT scan consistent with acute pancreatitis -No gallstones appreciated on CT scan, suspect pancreatitis is secondary to alcohol abuse -transition to clear liquid diet on 04/15 (dinner -LR at 200 mls/hr, cut down to 150 ml/r on 04/14 But lipase increased to 6000 from 5000, will resume 200 ml/hr -Tylenol and 15 mg IV Toradol every 6 hours ordered as needed for pain -Zofran 4 mg IV ordered every 6 hours as needed for nausea Alcohol abuse -Patient reportedly drinks 15 beers per day, and has done so for > 20 years -Alcohol level 95.3 on admission -Per patient, no past history of alcohol withdrawals or seizures -Daily 100 mg p.o. thiamine and 1 mg p.o. folate ordered -AWSS with PRN Ativan ordered Placed on librium Transaminitis -LFTs mildly elevated. -Suspect this is related to alcohol abuse - Gastritis -CT scan shows wall thickening of the stomach, potentially due to gastritis -Patient reports epigastric pain, could also have an element of gastritis as well -Pantoprazole 40 mg p.o. twice daily ordered Hyponatremia -Sodium 123 on admission Improved to 131 -Consistent with beer potomania -Monitor BMP CAD s/p NSTEMI x2/Hypertension/Hyperlipidemia -Most recent NSTEMI was in 2010, patient has declined stents -Continue home aspirin, atorvastatin, isosorbide mononitrate, lisinopril and metoprolol -last ECHO in 2012 -> EF of 50% Anxiety -Continue home clonazepam 3 times daily Tobacco abuse -Patient is a longtime smoker, smoking 1 pack/day -Patient declined nicotine patch Diabetes mellitus -Listed as diagnosis on patient's chart, however patient does not take any medications for this -Glucose 101 on admission -A1C is low. Not even in prediabetic range. Patient does not have Diabetes. CODE STATUS: Full DVT prophylaxis: SCDs (2) Tobacco use: (3) Alcohol abuse, continuous: (4) Anxiety: (5) Hyperlipemia: (6) HTN (hypertension): (7) CAD in [place] artery: (8) Elevated liver enzymes: (9) Esophageal reflux: (10) Heart disease: (11) Gastritis: (12) Hyponatremia: Subjective 53 yo male reports feeling well. He is hungry and wants to eat. He states if he does not have dinner, he will sign out AMA Review of Systems Review of Systems: All systems reviewed & are unremarkable except as noted in HPI & below Physical Exam Constitutional: WD/WN, vitals as above well developed Eyes: PERRL, conjunctivae normal, anicteric sclerae ENMT: external ear and nose normal, oropharynx normal Neck: trachea midline, no thyromegaly Respiratory: normal respiratory effort, lungs clear to auscultation Cardiovascular: RRR, no murmur, no edema Gastrointestinal (Abdomen): normal bowel sounds, soft, nontender, no hepatosplenomegaly Musculoskeletal: no cyanosis or clubbing, extremities motor strength 5/5 Skin: no rashes, warm and dry Neurologic: patellar DTR's 2+ bilat, sensation intact Psychiatric: A+Ox3, euthymic affect Results & Data Vital Signs (Past 12 Hours) Vital Signs Temp Pulse Resp BP Pulse Ox 04/15/19 19:54 36.4 C L 72 20 160/89 H 96 04/15/19 15:16 36.6 C 50 L 19 157/81 H 96 04/15/19 12:36 36.6 C 52 L 16 144/83 H 96 PG Care Time/CCT Total # of Minutes Spent Total Time Spent with Patient: Total time spent is greater than 50% in coordination of care (as documented) at patient's floor/unit and/or counseling patient:
[2019-04-16] MEDS: LACTATED RINGER'S 1,000 ML IV SCH ×3 (00:18→10:25)
[2019-04-16] MEDS: chlordiazePOXIDE HCl 25 MG CAP PO SCH (03:32)
[2019-04-16] MEDS: METOPROLOL TARTRATE 100 MG TAB PO SCH (07:25)
[2019-04-16] MEDS: LISINOPRIL 40 MG TAB PO SCH (07:26)
[2019-04-16 07:33] LABS: Hemoglobin 12.8 g/dL (14.0-18.0); Mean Corpuscular Hemoglobin 36.7 pg (25-34); Mean Corpuscular Hgb Conc 35.6 g/dL (32-36); Mean Corpuscular Volume 103.2 fL (80-100); RDW Coefficient of Variation 12.5 % (11.5-14.5); RDW Standard Deviation 46.6 fL (36.4-46.3); Red Blood Count 3.49 M/uL (4.7-6.1); White Blood Count 3.56 K/uL (4.8-10.8)
[2019-04-16 07:34] LABS: Mean Platelet Volume 8.9 fL (7.4-10.4); Platelet Count 99 K/uL (130-400)
[2019-04-16 07:55] LABS: BUN Creatinine Ratio 5.1 (10-20); Calcium 9.4 mg/dl (8.5-10.1); Creatinine Clr Calc Pharmacy 78.2 ml/min; Est GFR (African American) 89.7; Est GFR (Non-African American) 77.4; Potassium 3.5 mmol/L (3.5-5.1)
[2019-04-16] MEDS: PANTOprazole 40 MG TAB PO SCH (08:55)
[2019-04-16] MEDS: ISOSORBIDE MONO EXTENDED REL 60 MG TABCR PO SCH (08:55)
[2019-04-16] MEDS: THIAMINE HCL 100 MG TAB PO SCH (08:55)
[2019-04-16] MEDS: ASPIRIN 81 MG ECTAB PO SCH (08:55)
[2019-04-16] MEDS: FOLIC ACID 1 MG TAB PO SCH (08:55)
[2019-04-16] MEDS: clonazePAM 1 MG TAB PO SCH ×2 (08:59→13:43)
[2019-04-16] MEDS ORDERED: chlordiazePOXIDE HCl 25 MG CAP PO SCH (12:00)
--- NOTE | 2019-04-16 15:09 | Discharge Summary ---
Date of Service April 16, 2019 Admission HPI Per Admitting Provider Mr. Zavala is a 53-year-old male with a past medical history of CAD s/p NSTEMI x2, hypertension, GERD, and anxiety who presents to the emergency department due to a 24-hour history of abdominal pain, nausea and vomiting. He states that his pain began suddenly last night, improved, and then worsened again today. He states the pain is constant, and over the left side of his abdomen. He reports the pain is as severe as 8/10. He also notes a subjective fever. He reports associated nausea and vomiting. He notes that his bowels have been moving normally, denies the presence of blood in his stools or vomit. He denies a past history of pancreatitis. Of note, he has a long-standing history of alcohol abuse. He states that he drinks at least 15 beers a day, and has done so for over 20 years. He denies a prior history of alcohol withdrawals or seizures. He is also a longtime smoker, and smokes 1 pack/day. With regards to his cardiac history, he follows with Dr. Shultz. His daughter states that he declined having stents placed in the past. Discharge Data Allergies Allergy/AdvReac Type Severity Reaction Status Date / Time morphine AdvReac Intermediate NAUSEA/VOMI Verified 04/14/19 00:37 TING Consultations 04/14/19 02:07 ED Decision to Admit Stat Ordered Studies 04/14/19 00:00 CT abd pelvis IV con only Urgent Hospital Course (1) Acute pancreatitis: Mr. Zavala is a 53-year-old male with a past medical history of CAD s/p NSTEMI x2, hypertension, GERD, and anxiety who presents to the emergency department due to a 24-hour history of abdominal pain, nausea and vomiting. ED course: 1.5 L normal saline bolus, 20 mg IV Pepcid, 4 mg IV Zofran, 1 banana bag, 6.25 mg IV Phenergan Acute pancreatitis -Admit to med/surg with telemetry monitoring -Lipase 15,681, and CT scan consistent with acute pancreatitis -No gallstones appreciated on CT scan, suspect pancreatitis is secondary to alcohol abuse -transition to clear liquid diet on 04/15 (dinner -LR at 200 mls/hr, cut down to 150 ml/r on 04/14 But lipase increased to 6000 from 5000, will resume 200 ml/hr -Tylenol and 15 mg IV Toradol every 6 hours ordered as needed for pain -Zofran 4 mg IV ordered every 6 hours as needed for nausea Alcohol abuse -Patient reportedly drinks 15 beers per day, and has done so for > 20 years -Alcohol level 95.3 on admission -Per patient, no past history of alcohol withdrawals or seizures -Daily 100 mg p.o. thiamine and 1 mg p.o. folate ordered -AWSS with PRN Ativan ordered Placed on librium Transaminitis -LFTs mildly elevated. -Suspect this is related to alcohol abuse - Gastritis -CT scan shows wall thickening of the stomach, potentially due to gastritis -Patient reports epigastric pain, could also have an element of gastritis as well -Pantoprazole 40 mg p.o. twice daily ordered Hyponatremia -Sodium 123 on admission Improved to 131 -Consistent with beer potomania -Monitor BMP CAD s/p NSTEMI x2/Hypertension/Hyperlipidemia -Most recent NSTEMI was in 2010, patient has declined stents -Continue home aspirin, atorvastatin, isosorbide mononitrate, lisinopril and metoprolol -last ECHO in 2012 -> EF of 50% Anxiety -Continue home clonazepam 3 times daily Tobacco abuse -Patient is a longtime smoker, smoking 1 pack/day -Patient declined nicotine patch Diabetes mellitus -Listed as diagnosis on patient's chart, however patient does not take any medications for this -Glucose 101 on admission -A1C is low. Not even in prediabetic range. Patient does not have Diabetes. CODE STATUS: Full DVT prophylaxis: SCDs (2) Tobacco use: (3) Alcohol abuse, continuous: (4) Anxiety: (5) Hyperlipemia: (6) HTN (hypertension): (7) CAD in [place] artery: (8) Elevated liver enzymes: (9) Esophageal reflux: (10) Heart disease: (11) Gastritis: (12) Hyponatremia: Discharge Plan Discharge Items Patient Disposition: Home - Self-Care Reason For Visit: ACUTE PANCREATITIS,HYPONATREMIA Discharge Diagnosis: Acute alcoholic pancreatitis Hypertension Elevated liver function tests Condition on Discharge: Fair Activity: Resume your previous activity Non-emergency contact: Primary Care Provider Call non-emergency contact if: you have any medication questions and your symptoms worsen Follow-up/Referrals: Philippe Leon III, MD [Primary Care Provider] - Diet: Full liquid Ambulatory Orders: Comprehensive Metabolic Panel (Routine) Timeframe: 3 Days Location: Determined by Patient Ordered By: Orlando Salgado Lipase (Routine) Timeframe: 3 Days Location: Determined by Patient Ordered By: Orlando Izquierdo Attending Provider Instructions: You were admitted to [facility] from April 14 to due to acute alcoholic pancreatitis. This was treated with intravenous fluids and medications for nausea. You are now tolerating a full liquid diet and pancreas enzyme is trending down. Please continue to increase your diet to soft food tomorrow then regular diet the after that as tolerated. Ondansetron (Zofran) has been prescribed for nausea. Recommend repeat labs (as ordered). Please abstain from any further alcohol, discuss ongoing rehabilitation with your primary care provider. You were also prescribed chlordiazepoxide to reduce risk of any alcohol withdrawal. Please take as prescribed for the next 2 days. You also had an elevated blood pressure throughout your hospitalization. No new medications for this were started at this time. Please discuss ongoing treatment with your primary care provider. Incidental on your CT scan you were noted to have an enlarged prostate. Symptoms of this can include urinary frequency, night time urination, poor urinary flow, difficulty starting or stopping to urinate. Please discuss further with your primary care provider if you are having these symptoms. Pending Studies at Discharge: No Stand-Alone Forms: My [facility], Smoking Cessation Medications and DC Order Prescriptions: New thiamine HCl (vitamin B1) [Vitamin B-1] 100 mg Tablet 100 mg PO QAM Qty: 90 RF: 0 folic acid 1 mg Tablet 1 mg PO QAM Qty: 90 RF: 0 ondansetron 4 mg tablet,disintegrating 4 mg PO Q6H PRN (Reason: nausea and vomiting) 5 Days Qty: 10 RF: 0 chlordiazepoxide HCl 5 mg capsule 5 mg PO UD 2 Days Qty: 2 RF: 0 Continued nitroglycerin 0.4 mg tablet, sublingual 0.4 mg SL Q5M PRN (Reason: chest pain) Qty: 25 RF: 5 lisinopril 40 mg tablet 40 mg PO DAILY Qty: 90 RF: 3 clonazepam 1 mg tablet 1 mg PO TID Qty: 20 RF: 0 aspirin 81 mg tablet 81 mg PO DAILY RF: 0 isosorbide mononitrate 60 mg tablet extended release 24 hr 60 mg PO DAILY Qty: 30 RF: 0 atorvastatin 80 mg tablet 80 mg PO HS Qty: 90 RF: 0 metoprolol tartrate 50 mg tablet 150 mg PO UD Qty: 90 RF: 0 omeprazole 20 mg capsule,delayed release(DR/EC) 20 mg PO DAILY Qty: 60 RF: 0 Discharge Orders: Discharge Order (Routine); Ordered 04/16/19 Ordered By: Orlando Avalos/Other Patient Handouts: Addiction Alcohol, Addiction Get Help, Addiction Recovery [place] [facility] Relapse Admission Data Admit Date/Time: 04/14/19 02:58 Attending Provider: Orlando Salgado Admit Provider: Kuldeep Caldwell Primary Care Provider: Philippe Leon III Other Providers: Estelita Parr Other Interventions: Discharge Summary Assessment (RN) Last Done: 04/16/19 13:49
[2019-04-18] MEDS ORDERED: chlordiazePOXIDE HCl 5 MG CAP PO SCH (06:00)
== END 2019-04-16 16:22 | disposition home or self-care (01) | DRG 439 ==
LOC: ED 23:30 → 2N 04-14 02:58 → SUATTDRO 04-14 02:58 → 2N 04-14 03:26

== ENCOUNTER 2019-07-10 13:51 | Inpatient (IN) ==
[2019-07-10] MEDS ORDERED: ONDANSETRON INJ 2 MG/ML 2 ML VIAL IV STA (14:57)
[2019-07-10] MEDS ORDERED: HYDROmorphone INJ 1 MG/ML SYRINGE IV STA (14:57)
[2019-07-10] MEDS ORDERED: SODIUM CHLORIDE 0.9% 1000ML 1,000 ML IV ONE (14:57)
[2019-07-10 15:26] LABS: Basophils # (auto) 0.03 K/uL (0-0.2); Basophils % (auto) 0.6 %; Eosinophils # (auto) 0.04 K/uL (0-0.5); Eosinophils % (auto) 0.7 %; Hematocrit (blood only) 41.7 % (42-52); Hemoglobin 15.5 g/dL (14.0-18.0); Immature Granulocytes # (auto) 0.02 K/uL (0.00-0.02); Immature Granulocytes % (auto) 0.4 %; Lymphocytes # (auto) 1.77 K/uL (1.2-3.4); Lymphocytes % (auto) 32.5 %; Mean Corpuscular Hgb Conc 37.2 g/dL (32-36); Mean Platelet Volume 8.6 fL (7.4-10.4); Monocytes # (auto) 0.62 K/uL (0.11-0.59); Monocytes % (auto) 11.4 %; Neutrophils # (auto) 2.97 K/uL (1.4-6.5); Neutrophils % (auto) 54.4 %; Platelet Count 129 K/uL (130-400); RDW Standard Deviation 42.4 fL (36.4-46.3); White Blood Count 5.45 K/uL (4.8-10.8)
[2019-07-10 15:54] LABS: Albumin Level 4.4 gm/dl (3.4-5.0); BUN Creatinine Ratio 9.4 (10-20); Bilirubin Direct 0.3 mg/dl (0-0.2); Bilirubin,Total 1.3 mg/dl (0.2-1); Calcium 9.5 mg/dl (8.5-10.1); Creatinine Clr Calc Pharmacy 75.2 ml/min; Est GFR (African American) 86.2; Est GFR (Non-African American) 74.4; Potassium 4.4 mmol/L (3.5-5.1); Total Protein 8.4 gm/dl (6.4-8.2)
[2019-07-10] MEDS ORDERED: SODIUM CHLORIDE 0.9% 1000ML 1,000 ML IV SCH (16:15)
[2019-07-10] MEDS ORDERED: ACETAMINOPHEN 1,000 MG/100 ML VIAL IV STA (16:46)
--- NOTE | 2019-07-10 19:22 | Emergency Department Note ---
Entered by Leidy Alcaraz acting as a scribe for History of Present Illness General Chief complaint: Abdominal Pain Stated complaint: UPPER ABD PAIN Time Seen by Provider: 07/10/19 14:41 Source: patient History of Present Illness Provider complaint: Abdominal Pain Onset (ago): day(s) 1 Location: abdomen Maximum Pain Intensity: 6 Relieved By: + none Exacerbated By: + none Associated symptoms: + denies other symptoms (Hematochezia, hematuria, hematemesis) and + nausea/vomiting; no fever/chills The patient is a 54 year old male who presents to the Emergency Room with complaints of abdominal pain that began yesterday that he believes is pancreatitis. Reports abdominal pain that is located in the epigastric area. The patient reports experiencing nausea/vomiting. The patient denies experiencing any fever/chills, hematochezia, hematuria, or hematemesis. The patient notes that he has been drinking and recently drank a 6 pack of 12oz beers in yesterday for his birthday but denies drinking any liquor. Home Medications Home Medications Medication Instructions Recorded Confirmed Type aspirin 81 mg tablet 81 mg PO DAILY tab 02/01/19 07/10/19 History atorvastatin 80 mg tablet 80 mg PO HS #90 tab 02/01/19 07/10/19 History clonazepam 1 mg tablet 1 mg PO TID #20 tab 02/01/19 07/10/19 History metoprolol tartrate 50 mg tablet 150 mg PO UD #90 tab 02/01/19 07/10/19 History omeprazole 20 mg capsule,delayed 20 mg PO DAILY #60 cap 02/01/19 07/10/19 History release nitroglycerin 0.4 mg sublingual 0.4 mg SL Q5M PRN #25 tab 02/23/19 07/10/19 Rx tablet lisinopril 40 mg tablet 40 mg PO DAILY #90 tab 04/12/19 07/10/19 Rx thiamine HCl (vitamin B1) [Vitamin 100 mg PO QAM #90 tab 04/16/19 07/10/19 Rx B-1] isosorbide mononitrate 60 mg 60 mg PO DAILY #90 tab 04/23/19 07/10/19 Rx tablet,extended release 24 hr Allergies Allergy/AdvReac Type Severity Reaction Status Date / Time morphine AdvReac Intermediate NAUSEA/VOMI Verified 07/10/19 15:54 TING Past Med/Surg History Medical History Alcohol abuse, continuous (Acute) Anxiety (Acute) COPD (chronic obstructive pulmonary disease) HTN (hypertension) (Chronic) Hyperlipemia (Chronic) Tobacco use (Chronic) Surgical History No pertinent past surgical history Family History Other No pertinent family history in first degree relatives Social History Preferred Language: Georgian Communication Ability: Effective Alarm Service Technician Required: No Beliefs That Will Affect Care: None Current Living Situation: Family Current Living Situation Comment: with daughter Haley Feels Safe at Home: Yes Smoking Status: Current every day smoker Tobacco Type: cigarettes ; Age Started Using Tobacco: 14 ; packs per day: 0.5 ; Cigarettes Per Day: 1 PPD ; Second Hand Exposure: Yes ; Hx Alcohol Use: Yes Alcohol type: beer Hx Substance Use: No Review of Systems See HPI for pertinent positives & negatives. and A total of 10 systems reviewed and were otherwise negative Physical Exam Vital Signs Vital Signs - 24 hr 07/10/19 13:53 07/10/19 15:30 07/10/19 16:23 Temperature 36.8 C Temperature Source Oral Pulse Rate 80 64 69 Pulse Rate from SpO2 Sensor 64 71 Respiratory Rate 20 15 12 Respiratory Effort / Characteristics Non-Labored Spontaneous Respiratory Depth Normal Respiratory Pattern Regular Blood Pressure 145/77 H 145/85 H 153/90 H Blood Pressure Mean 99 104 119 Pulse Oximetry 96 97 98 Oxygen Delivery Method Room Air Sepsis Recent Fever Within 48 Hours No Sepsis Action Taken by Nursing No Action Required 07/10/19 16:30 07/10/19 17:00 07/10/19 17:30 Temperature Temperature Source Pulse Rate 72 68 69 Pulse Rate from SpO2 Sensor 68 67 68 Respiratory Rate 16 15 17 Respiratory Effort / Characteristics Respiratory Depth Respiratory Pattern Blood Pressure 148/89 H 147/96 H 167/92 H Blood Pressure Mean 110 121 114 Pulse Oximetry 98 98 98 Oxygen Delivery Method Sepsis Recent Fever Within 48 Hours Sepsis Action Taken by Nursing 07/10/19 18:00 07/10/19 19:01 Temperature Temperature Source Pulse Rate 65 65 Pulse Rate from SpO2 Sensor 67 Respiratory Rate 17 14 Respiratory Effort / Characteristics Respiratory Depth Respiratory Pattern Blood Pressure 159/83 H 165/91 H Blood Pressure Mean 99 114 Pulse Oximetry 99 96 Oxygen Delivery Method Sepsis Recent Fever Within 48 Hours Sepsis Action Taken by Nursing GENERAL: He is oriented to person, place, and time. He appears well-developed and well-nourished. He does not appear distressed. HENT: Exam performed. - Head: Normocephalic and atraumatic. - Right Ear: External ear normal. No mastoid tenderness. - Left Ear: External ear normal. No mastoid tenderness. - Mouth/Throat: The oropharynx is clear and moist. No trismus in the jaw. No dental abscesses or uvula swelling. No oropharyngeal exudate or tonsillar abscesses. EYES: Conjunctivae and EOM are normal. Pupils are equal, round, and reactive to light. Right eye exhibits no discharge. Left eye exhibits no discharge. No scleral icterus. NECK: Normal range of motion. Neck supple. No JVD present. No spinous process tenderness present. No carotid bruit present. No rigidity. No tracheal deviation and normal range of motion present. No Brudzinski's sign and no Kernig's sign noted. CV: Normal rate, regular rhythm, normal heart sounds and intact distal pulses. There is no peripheral edema. Palpable radial pulses bue. PULM/CHEST: Effort normal and breath sounds normal. No respiratory distress. No stridor. He has no wheezes. He has no rales. - Chest Wall: He exhibits no tenderness. ABD: The abdomen is soft. Bowel sounds are normal. He has no distension. No mass is present. Epigastric pain on palpation. There is no rebound, no guarding, no Afrley's sign and no tenderness at McBurney's point. Rovsig negative. MUSC/SKEL: Normal range of motion. There is no peripheral edema, tenderness or deformity. LYMPH: No cervical adenopathy. NEURO: He is alert and oriented to person, place, and time. He has normal strength. No cranial nerve deficit or sensory deficit. Coordination and gait normal. GCS eye subscore is 4. GCS verbal subscore is 5. GCS motor subscore is 6. Cerebellar tests wnl. SKIN: Skin is warm and dry. He is not diaphoretic. PSYCH: He has a normal mood and affect. Behavior is normal. Judgment and thought content normal. Course Course 1455: Past medical records reviewed. The patient was evaluated in room B11A. A complete history and physical exam was performed. 1650: Vital signs stable. Patient sodium is 120. Lipase is elevated. It is thought that the patient is suffering from pancreatitis and hyponatremia due to the excessive beer consumption that he is reporting. I spoke with Dr. Sheryl Parr- Hospitalist about the patient's case and she will accept the patient for further evaluation. Administered Medications Sodium Chloride (Nss 1000ml) 1,000 mls @ 125 mls/hr IV .Q8H HE Stop: 08/09/19 16:14 Last Admin: 07/10/19 16:28 Dose: 125 mls/hr Documented by: [id number] Discontinued Medications Hydromorphone HCl (Dilaudid) 1 mg IV NOW STA Stop: 07/10/19 14:58 Last Admin: 07/10/19 16:27 Dose: Not Given Documented by: [id number] Sodium Chloride (Nss 1000ml) 1,000 mls @ 999 mls/hr IV .Q1H1M ONE Stop: 07/10/19 15:57 Last Infusion: 07/10/19 17:29 Dose: 0 mls/hr Documented by: [id number] Admin: 07/10/19 16:28 Dose: 999 mls/hr Documented by: [id number] Acetaminophen (Ofirmev) 1,000 mg in 100 mls @ 400 mls/hr IV NOW STA Stop: 07/10/19 17:00 Last Infusion: 07/10/19 17:09 Dose: 0 mls/hr Documented by: [id number] Admin: 07/10/19 16:54 Dose: 400 mls/hr Documented by: [id number] Ondansetron HCl (Zofran) 4 mg IV NOW STA Stop: 07/10/19 14:58 Last Admin: 07/10/19 16:27 Dose: Not Given Documented by: [id number] Medical Decision Making Medical Records Attestation: I reviewed the patient's medical records. Home Medications Current Medication List: was personally reviewed by me Laboratory Data Attestation: I reviewed the patient's lab results. Result diagrams: 07/10/19 15:11 07/10/19 15:11 Lab Results 07/10/19 07/10/19 Range/Units 15:11 15:11 WBC 5.45 (4.8-10.8) K/uL RBC 4.30 L (4.7-6.1) M/uL Hgb 15.5 (14.0-18.0) g/dL Hct 41.7 L (42-52) % MCV 97.0 (80-100) fL MCH 36.0 H (25-34) pg MCHC 37.2 H (32-36) g/dL RDW Std Deviation 42.4 (36.4-46.3) fL RDW Coeff of Lisa 12.0 (11.5-14.5) % Plt Count 129 L (130-400) K/uL MPV 8.6 (7.4-10.4) fL Immature Gran % (Auto) 0.4 % Neut % (Auto) 54.4 % Lymph % (Auto) 32.5 % [place] % (Auto) 11.4 % Eos % (Auto) 0.7 % Baso % (Auto) 0.6 % Immature Gran # (Auto) 0.02 (0.00-0.02) K/uL Neut # (Auto) 2.97 (1.4-6.5) K/uL Lymph # (Auto) 1.77 (1.2-3.4) K/uL [place] # (Auto) 0.62 H (0.11-0.59) K/uL Eos # (Auto) 0.04 (0-0.5) K/uL Baso # (Auto) 0.03 (0-0.2) K/uL Sodium 120 L (136-145) mmol/L Potassium 4.4 (3.5-5.1) mmol/L Chloride 87 L (98-107) mmol/L Carbon Dioxide 23 (21-32) mmol/L Anion Gap 10.0 (3-11) BUN 10 (7-18) mg/dl Creatinine 1.11 (0.6-1.4) mg/dl Est Cr Clr Drug Dosing 75.2 ml/min Est GFR ( Amer) 86.2 Est GFR (Non-Af Amer) 74.4 BUN/Creatinine Ratio 9.4 L (10-20) Glucose 96 (70-99) mg/dl Calcium 9.5 (8.5-10.1) mg/dl Total Bilirubin 1.3 H (0.2-1) mg/dl Direct Bilirubin 0.3 H (0-0.2) mg/dl AST 30 (15-37) U/L ALT 48 (12-78) U/L Alkaline Phosphatase 107 (45-117) U/L Total Protein 8.4 H (6.4-8.2) gm/dl Albumin 4.4 (3.4-5.0) gm/dl Lipase 3713 H (73-393) U/L Blood Pressure Blood Pressure Findings: Elevated blood pressure Blood Pressure Disposition: further management by hospitalist [facility] Narrative Vital signs stable. Patient sodium is 120. Lipase is elevated. It is thought that the patient is suffering from pancreatitis and hyponatremia due to the excessive beer consumption that he is reporting. I spoke with Dr. Sheryl Parr- Hospitalist about the patient's case and she will accept the patient for further evaluation. Impression & Plan Acute pancreatitis, Acute hyponatremia Discharge Plan Visit Data Chief Complaint: Abdominal Pain Stated Complaint: UPPER ABD PAIN ED Provider: Larry Catherine Discharge Problem: Acute pancreatitis, Acute hyponatremia Forms Stand Alone Forms: My [facility] Prescriptions Prescriptions: No Action nitroglycerin 0.4 mg tablet, sublingual 0.4 mg SL Q5M PRN (Reason: chest pain) Qty: 25 RF: 5 lisinopril 40 mg tablet 40 mg PO DAILY Qty: 90 RF: 3 isosorbide mononitrate 60 mg tablet extended release 24 hr 60 mg PO DAILY Qty: 90 RF: 3 clonazepam 1 mg tablet 1 mg PO TID Qty: 20 RF: 0 aspirin 81 mg tablet 81 mg PO DAILY RF: 0 atorvastatin 80 mg tablet 80 mg PO HS Qty: 90 RF: 0 metoprolol tartrate 50 mg tablet 150 mg PO UD Qty: 90 RF: 0 omeprazole 20 mg capsule,delayed release(DR/EC) 20 mg PO DAILY Qty: 60 RF: 0 thiamine HCl (vitamin B1) [Vitamin B-1] 100 mg Tablet 100 mg PO QAM Qty: 90 RF: 0 Discharge Problem: Acute pancreatitis Qualifiers: Pancreatitis type: alcohol induced Acute pancreatitis complication: unspecified Qualified Code(s): K85.20 - Alcohol induced acute pancreatitis without necrosis or infection The scribe's documentation has been prepared under my direction and personally reviewed by me in its entirety. I confirm that the note above accurately reflects all work, treatment, procedures, and medical decision making performed by me.
[2019-07-10] MEDS ORDERED: HYDROmorphone INJ 0.5 MG/0.5 ML SYR IV PRN (20:19)
[2019-07-10] MEDS ORDERED: ATIVAN IV ALCOHOL WITHDRAWL IV PRN (20:19)
[2019-07-10] MEDS ORDERED: ONDANSETRON INJ 2 MG/ML 2 ML VIAL IV PRN (20:19)
[2019-07-10] MEDS ORDERED: LORazepam 3 MG/6 ML VIAL IV PRN (20:19)
[2019-07-10] MEDS ORDERED: LORazepam 1 MG/2 ML VIAL IV PRN (20:19)
[2019-07-10] MEDS ORDERED: LORazepam 2 MG/4 ML VIAL IV PRN (20:19)
[2019-07-10] MEDS ORDERED: MULTI-VITAMIN INFUSION 10 ML, THIAMINE HCL 100 MG, FOLIC ACID 1 MG in SODIUM CHLORIDE 0... IV ONE (20:30)
[2019-07-10] MEDS ORDERED: THIAMINE HCL 100 MG in SYRINGE 9 ML IV SCH (20:45)
[2019-07-10] MEDS: LACTATED RINGER'S 1,000 ML IV SCH (20:59)
[2019-07-10] MEDS: clonazePAM 1 MG TAB PO SCH (20:59)
[2019-07-10] MEDS ORDERED: ATORVASTATIN 40 MG TAB PO SCH (21:00)
[2019-07-10] MEDS: FOLIC ACID 1 MG in SYRINGE 9.8 ML IV SCH (21:01)
[2019-07-10 21:08] LABS: Phosphorus 3.8 mg/dl (2.5-4.9)
--- NOTE | 2019-07-10 21:18 | History & Physical Report ---
Date of Service July 10, 2019 Assessment & Plan (1) Acute pancreatitis: Patient with abdominal pain, elevated lipase in setting of recent EtOH use. Has history of pancreatitis in the past. -Admit to medical floor -NPO -Zofran PRN nausea -Dilaudid PRN pain -LR at 200mL/hr x 2 liters -Encourage complete and total abstinence from EtOH Present on Admission?: Yes (2) Alcohol abuse, continuous: Ongoing EtOH use. Last drink yesterday at 14:00. Patient with history of mild EtOH withdrawl in the past, no seizures -AWSS -Continue scheduled Clonazepam 1mg po TID -Ativan IV for active protocol as needed -Banana bag x 1 -Thiamine 100mg IV daily -Folate 1mg IV daily Present on Admission?: Yes (3) Anxiety: Chronic -Continue Clonazepam at home dose Present on Admission?: Yes (4) Hyperlipemia: Chronic. Stable -Continue Atorvastatin Present on Admission?: Yes (5) HTN (hypertension): Blood pressure mildly elevated at 142/84 -Continue Lisinopril, Metoprolol and Isosorbide -Continue to monitor Present on Admission?: Yes (6) Tobacco use: Encourage smoking cessation Present on Admission?: Yes (7) CAD in [place] artery: Chronic. Stable -Continue ASA, Atorvastatin, Metoprolol, Lisinopril, Isosorbide F/E/N - Banana bag x 1, LR at 200mL/hr x 3 liters, monitor electrolytes and replete as needed Ppx - low risk for DVT Code - Full per discussion with patient Dispo - Admit to medical floor with telemetry History of Present Illness Chief Complaint: abdominal pain Primary Care Provider: Philippe Leon MD Herve Zavala is a 54yo C male with history of HTN/CAD/EtOH abuse presenting with acute pancreatitis. Patient was celebrating his birthday yesterday and drank a 6 pack of beer. Overnight he developed severe epigastric abdominal pain, 10/10 with nausea and dry heaving. Also with a few episodes of watery diarrhea. No additional complaints at this time. His pain has improved with Tylenol given in the ER. Patient has had pancreatitis in the past and feels that this is the same. He drinks daily, beer. Reports approximately 3/day. Last drink yesterday 07/09/19 around 14:00. He has cut back on his EtOH intake significantly, was previously drinking 15 beers/day. He has had tremors in the past with discontinuing EtOH. ER Course: Tylenol, Dilaudid, Zofran, NSS x 2 L Allergies Allergy/AdvReac Type Severity Reaction Status Date / Time morphine AdvReac Intermediate NAUSEA/VOMI Verified 07/10/19 15:54 TING Home Medications Home Medications Medication Instructions Recorded Confirmed Type aspirin 81 mg tablet 81 mg PO DAILY tab 02/01/19 07/10/19 History atorvastatin 80 mg tablet 80 mg PO HS #90 tab 02/01/19 07/10/19 History clonazepam 1 mg tablet 1 mg PO TID #20 tab 02/01/19 07/10/19 History metoprolol tartrate 50 mg tablet 150 mg PO UD #90 tab 02/01/19 07/10/19 History omeprazole 20 mg capsule,delayed 20 mg PO DAILY #60 cap 02/01/19 07/10/19 History release nitroglycerin 0.4 mg sublingual 0.4 mg SL Q5M PRN #25 tab 02/23/19 07/10/19 Rx tablet lisinopril 40 mg tablet 40 mg PO DAILY #90 tab 04/12/19 07/10/19 Rx thiamine HCl (vitamin B1) [Vitamin 100 mg PO QAM #90 tab 04/16/19 07/10/19 Rx B-1] isosorbide mononitrate 60 mg 60 mg PO DAILY #90 tab 04/23/19 07/10/19 Rx tablet,extended release 24 hr Past Med/Surg History Medical History Alcohol abuse, continuous (Acute) Anxiety (Acute) CAD in [place] artery (Chronic) COPD (chronic obstructive pulmonary disease) HTN (hypertension) (Chronic) Hyperlipemia (Chronic) Tobacco use (Chronic) Family History Other No pertinent family history in first degree relatives Social History Preferred Language: Lithuanian Communication Ability: Effective 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 Beliefs That Will Affect Care: None Current Living Situation: Family and Other Current Living Situation Comment: Lives between daughter and a friends house Other Information That Helps Us Care for You: No Feels Safe at Home: Yes Safety Concerns: Feels Safe At This Time Smoking Status: Current every day smoker Tobacco Type: cigarettes ; Age Started Using Tobacco: 14 ; packs per day: 0.5 ; Cigarettes Per Day: 15 ; Do You Dip or Chew Tobacco: No ; Second Hand Exposure: Yes ; Tobacco Cessation Education Requested by Patient: No Hx Alcohol Use: Yes Alcohol type: beer Hx Substance Use: No Review of Systems Review of Systems: All systems reviewed & are unremarkable except as noted in HPI & below Denies fevers/chills/CP/SOB/cough/wheeze Physical Exam Physical Exam: General: patient resting comfortably, NAD, non-toxic in appearance, AA&O x 4, poorly kempt Skin: warm, dry, intact, no rashes or lesions HEENT: NC/AT, PERRL, EOMI, anicteric sclera, conjunctiva without injection, external ear normal to inspection and nontender, nares patent, moist mucus membranes, edentulous, no oropharyngeal lesions, neck supple, trachea midline, no LAD, no thyromegaly, no JVD Heart: +S1/S2, regular with ectopy, no m/r/g Lungs: equal air entry bilaterally, no rales/rhonchi, scattered diffuse end- expiratory wheezing Abd: +BS, soft, ND, tender in epigastric region, no masses/organomegaly/ascites Ext: warm, 2+ pulses in UE/LE bilaterally, no clubbing/cyanosis or edema Neuro: nonfocal, patient AA&O x 4, speech intact, no facial droop, moving all extremities on command with equal strength 5/5 Results & Data Vital Signs (Past 12 Hours) Vital Signs Temp Pulse Resp BP BP Pulse Ox 07/10/19 20:19 36.6 C 16 142/84 H 98 07/10/19 19:01 65 14 165/91 H 96 07/10/19 18:00 65 17 159/83 H 99 07/10/19 17:30 69 17 167/92 H 98 07/10/19 17:00 68 15 147/96 H 98 07/10/19 16:30 72 16 148/89 H 98 07/10/19 16:23 69 12 153/90 H 98 07/10/19 15:30 64 15 145/85 H 97 07/10/19 13:53 36.8 C 80 20 145/77 H 96 Laboratory Results Lab Results 0207/10/19 07/10/19 Range/Units 15:11 15:11 15:11 WBC 5.45 (4.8-10.8) K/uL RBC 4.30 L (4.7-6.1) M/uL Hgb 15.5 (14.0-18.0) g/dL Hct 41.7 L (42-52) % MCV 97.0 (80-100) fL MCH 36.0 H (25-34) pg MCHC 37.2 H (32-36) g/dL RDW Std Deviation 42.4 (36.4-46.3) fL RDW Coeff of Lisa 12.0 (11.5-14.5) % Plt Count 129 L (130-400) K/uL MPV 8.6 (7.4-10.4) fL Immature Gran % (Auto) 0.4 % Neut % (Auto) 54.4 % Lymph % (Auto) 32.5 % [place] % (Auto) 11.4 % Eos % (Auto) 0.7 % Baso % (Auto) 0.6 % Immature Gran # (Auto) 0.02 (0.00-0.02) K/uL Neut # (Auto) 2.97 (1.4-6.5) K/uL Lymph # (Auto) 1.77 (1.2-3.4) K/uL [place] # (Auto) 0.62 H (0.11-0.59) K/uL Eos # (Auto) 0.04 (0-0.5) K/uL Baso # (Auto) 0.03 (0-0.2) K/uL Sodium 120 L (136-145) mmol/L Potassium 4.4 (3.5-5.1) mmol/L Chloride 87 L (98-107) mmol/L Carbon Dioxide 23 (21-32) mmol/L Anion Gap 10.0 (3-11) BUN 10 (7-18) mg/dl Creatinine 1.11 (0.6-1.4) mg/dl Est Cr Clr Drug Dosing 75.2 ml/min Est GFR ( Amer) 86.2 Est GFR (Non-Af Amer) 74.4 BUN/Creatinine Ratio 9.4 L (10-20) Glucose 96 (70-99) mg/dl Calcium 9.5 (8.5-10.1) mg/dl Phosphorus 3.8 (2.5-4.9) mg/dl Magnesium 2.0 (1.8-2.4) mg/dl Total Bilirubin 1.3 H (0.2-1) mg/dl Direct Bilirubin 0.3 H (0-0.2) mg/dl AST 30 (15-37) U/L ALT 48 (12-78) U/L Alkaline Phosphatase 107 (45-117) U/L Total Protein 8.4 H (6.4-8.2) gm/dl Albumin 4.4 (3.4-5.0) gm/dl Lipase 3713 H (73-393) U/L Code Status & VTE Plan Code Status full PG Care Time/CCT Total # of Minutes Spent Total Time Spent with Patient: Total time spent is greater than 50% in coordination of care (as documented) at patient's floor/unit and/or counseling p atient: Coding Level of Care Code 80083 Initial Inpt Care Lvl 3 Diagnoses Acute pancreatitis K85.20 Pancreatitis type: alcohol induced Acute pancreatitis complication: unspecified Alcohol abuse, continuous F10.10 Anxiety F41.9 Hyperlipemia E78.5 Hyperlipidemia type: unspecified HTN (hypertension) I10 Hypertension type: essential hypertension Tobacco use Z72.0 CAD in [place] artery I25.10 (1) Acute pancreatitis Pancreatitis type: alcohol induced Acute pancreatitis complication: unspecified Qualified Code(s): K85.20 - Alcohol induced acute pancreatitis without necrosis or infection (2) Hyperlipemia Hyperlipidemia type: unspecified Qualified Code(s): E78.5 - Hyperlipidemia, unspecified (3) HTN (hypertension) Hypertension type: essential hypertension Qualified Code(s): I10 - Essential (primary) hypertension
[2019-07-11] MEDS: LACTATED RINGER'S 1,000 ML IV SCH ×2 (04:33→10:25)
[2019-07-11 06:21] LABS: Hematocrit (blood only) 40.2 % (42-52); Hemoglobin 14.2 g/dL (14.0-18.0); Mean Corpuscular Hemoglobin 35.1 pg (25-34); Mean Corpuscular Hgb Conc 35.3 g/dL (32-36); Mean Corpuscular Volume 99.3 fL (80-100); RDW Coefficient of Variation 12.1 % (11.5-14.5); RDW Standard Deviation 44.2 fL (36.4-46.3); Red Blood Count 4.05 M/uL (4.7-6.1); White Blood Count 3.58 K/uL (4.8-10.8)
[2019-07-11 06:33] LABS: Mean Platelet Volume 8.9 fL (7.4-10.4); Platelet Count 96 K/uL (130-400)
[2019-07-11 07:04] LABS: Albumin Level 3.8 gm/dl (3.4-5.0); BUN Creatinine Ratio 8.8 (10-20); Bilirubin Direct 0.3 mg/dl (0-0.2); Bilirubin,Total 1.2 mg/dl (0.2-1); Creatinine Clr Calc Pharmacy 90.7 ml/min; Est GFR (African American) 108.1; Est GFR (Non-African American) 93.3; Total Protein 7.3 gm/dl (6.4-8.2)
[2019-07-11 07:20] LABS: Basophils # (auto) 0.02 K/uL (0-0.2); Basophils % (auto) 0.6 %; Eosinophils % (auto) 2.8 %; Lymphocytes # (auto) 1.61 K/uL (1.2-3.4); Monocytes # (auto) 0.39 K/uL (0.11-0.59); Monocytes % (auto) 10.9 %; Neutrophils # (auto) 1.46 K/uL (1.4-6.5); Neutrophils % (auto) 40.7 %
[2019-07-11] MEDS: FOLIC ACID 1 MG in SYRINGE 9.8 ML IV SCH (08:31)
[2019-07-11] MEDS ORDERED: PANTOprazole 40 MG TAB PO SCH (09:00)
[2019-07-11] MEDS ORDERED: ASPIRIN 81 MG ECTAB PO SCH (09:00)
[2019-07-11] MEDS ORDERED: METOPROLOL TARTRATE 50 MG TAB PO SCH (09:00)
[2019-07-11] MEDS ORDERED: lisinopriL 40 MG TAB PO SCH (09:00)
[2019-07-11] MEDS ORDERED: THIAMINE HCL 100 MG TAB PO SCH (09:00)
[2019-07-11] MEDS ORDERED: ISOSORBIDE MONO EXTENDED REL 60 MG TABCR PO SCH (09:00)
[2019-07-11] MEDS: clonazePAM 1 MG TAB PO SCH (09:34)
--- NOTE | 2019-07-11 14:16 | Discharge Summary ---
Date of Service July 11, 2019 Admission HPI Per Admitting Provider Herve Zavala is a 54yo C male with history of HTN/CAD/EtOH abuse presenting with acute pancreatitis. Patient was celebrating his birthday yesterday and drank a 6 pack of beer. Overnight he developed severe epigastric abdominal pain, 10/10 with nausea and dry heaving. Also with a few episodes of watery diarrhea. No additional complaints at this time. His pain has improved with Tylenol given in the ER. Patient has had pancreatitis in the past and feels that this is the same. He drinks daily, beer. Reports approximately 3/day. Last drink yesterday 07/09/19 around 14:00. He has cut back on his EtOH intake significantly, was previously drinking 15 beers/day. He has had tremors in the past with discontinuing EtOH. ER Course: Tylenol, Dilaudid, Zofran, NSS x 2 L Principal Diagnosis Alcohol induced acute pancreatitis Discharge Exam Constitutional WD/WN, vitals as above Eyes EOM intact bilaterally; no conjunctival abnormality ENMT external ear and nose normal, oropharynx normal Neck trachea midline, no thyromegaly normal visual inspection Respiratory normal respiratory effort, lungs clear to auscultation no respiratory distress Cardiovascular RRR, no murmur, no edema Gastrointestinal (Abdomen) Inspection/Auscultation: abdomen normal to inspection; abdomen not distended Musculoskeletal no cyanosis or clubbing, extremities motor strength 5/5 Skin no rashes, warm and dry Neurologic moves all extremities and awake Psychiatric Orientation: alert, oriented to person and cooperative Discharge Data Allergies Allergy/AdvReac Type Severity Reaction Status Date / Time morphine AdvReac Intermediate NAUSEA/VOMI Verified 07/10/19 15:54 TING Consultations 07/10/19 16:14 ED Decision to Admit Stat Hospital Course (1) Acute pancreatitis: Alcohol induced acute pancreatitis. - On discharge day, he felt well. He had used no pain medication since admission. He tolerated breakfast without incident. I discussed extensively his need to stop drinking alcohol entirely. He agreed and will follow up with his PCP. (2) Alcohol abuse, continuous: Ongoing EtOH use. Last drink yesterday at 14:00. Patient with history of mild EtOH withdrawl in the past, no seizures. - On discharge day, patient felt well. No indication of any signs of withdrawal. Patient requested discharge and was deemed capable of making that decision. Encourage to avoid alcohol and seek medical care if he has any signs/symptoms of withdrawal. (3) Anxiety: Chronic - Continue Clonazepam at home dose (4) Hyperlipemia: Chronic. Stable -Continue Atorvastatin (5) HTN (hypertension): Blood pressure mildly elevated at 142/84 -Continue Lisinopril, Metoprolol and Isosorbide -Continue to monitor (6) Tobacco use: Encourage smoking cessation (7) CAD in [place] artery: Chronic. Stable -Continue ASA, Atorvastatin, Metoprolol, Lisinopril, Isosorbide F/E/N - Banana bag x 1, LR at 200mL/hr x 3 liters, monitor electrolytes and re plete as needed Ppx - low risk for DVT Code - Full per discussion with patient Dispo - Admit to medical floor with telemetry (8) Hyponatremia: Hyponatremia in setting of alcoholism Total Time Total Time Spent Total Time Spent (In Minutes): 34 Discharge Plan Discharge Items Patient Disposition: Home - Self-Care Reason For Visit: PANCREATITIS Discharge Diagnosis: Pancreatitis Activity: Resume your previous activity Non-emergency contact: Primary Care Provider Call non-emergency contact if: your symptoms worsen, your pain is not controlled, your pain is worsening and your temperature is above 101 Follow-up/Referrals: Philippe Leon III, MD [Primary Care Provider] - 07/18/19 9:00 am (Youir appointment is with PADILLA Bradley. If you need to change this appointment, please call [phone].) Diet: Low Fiber Addtl Attending Provider Instructions: Mr. Zavala, You were admitted with pancreatitis. We feel this was likely due to alcohol intake. Your pancreas just cannot handle any alcohol, so it is imperative that you refrain from drinking any alcohol at all. Please drink plenty of fluids. Eat a low fat, low grease diet for the next few days and slowly re-introduce a wider variety of foods to your diet to be sure you tolerate it. Please see your PCP this week or early next week to be sure you're feeling better. Please call the office if your pain returns, you have nausea, vomiting, or any other issues. Pending Studies at Discharge: No Stand-Alone Forms: My [facility], Smoking Cessation Medications and DC Order Prescriptions: Continued nitroglycerin 0.4 mg tablet, sublingual 0.4 mg SL Q5M PRN (Reason: chest pain) Qty: 25 RF: 5 lisinopril 40 mg tablet 40 mg PO DAILY Qty: 90 RF: 3 isosorbide mononitrate 60 mg tablet extended release 24 hr 60 mg PO DAILY Qty: 90 RF: 3 clonazepam 1 mg tablet 1 mg PO TID Qty: 20 RF: 0 aspirin 81 mg tablet 81 mg PO DAILY RF: 0 atorvastatin 80 mg tablet 80 mg PO HS Qty: 90 RF: 0 metoprolol tartrate 50 mg tablet 150 mg PO UD Qty: 90 RF: 0 omeprazole 20 mg capsule,delayed release(DR/EC) 20 mg PO DAILY Qty: 60 RF: 0 thiamine HCl (vitamin B1) [Vitamin B-1] 100 mg Tablet 100 mg PO QAM Qty: 90 RF: 0 Discharge Orders: Discharge Order (Routine); Ordered 07/11/19 Ordered By: Ramirez Jonas Admission Data Admit Date/Time: 07/10/19 17:19 Attending Provider: Ramirez Jonas Admit Provider: Estelita Parr Primary Care Provider: Philippe Leon III Other Providers: Ramirez Jonas Other Interventions: Discharge Summary Assessment (RN) Last Done: 07/11/19 10:26 DC Date/Time DO NOT enter until pt leaves facility: 07/11/19 10:52 Coding Level of Care Code D/C Day Management >30 mins Diagnoses Acute pancreatitis K85.20 Pancreatitis type: alcohol induced Acute pancreatitis complication: unspecified Alcohol abuse, continuous F10.10 Anxiety F41.9 Hyperlipemia E78.5 Hyperlipidemia type: unspecified HTN (hypertension) I10 Hypertension type: essential hypertension Tobacco use Z72.0 CAD in [place] artery I25.10 Hyponatremia E87.1
== END 2019-07-11 10:52 | disposition home or self-care (01) | DRG 439 ==
LOC: ED 13:51 → SUATTDRO 17:19 → 2W 17:19

== ENCOUNTER 2023-11-21 14:01 | Observation (INO) ==
--- NOTE | 2023-11-21 14:11 | ED Triage Note ---
Date of Service November 21, 2023 Provider in Triage Author: Nomi Wyman History of Present Illness This patient was briefly evaluated while in triage. An abbreviated physical exam was performed. This patient is a 58-year-old Male who presents to the ED for evaluation seen here overnight by Dr. Bernstein diagnosed with "hyponatremia, hematuria, UTI and splenic vein thrombosis" Dr. Bernstein recommended admission but patient refused and he signed out AMA. Patient now willing to consider inpatient care no further hematuria, but patient didn't take his prescribed antibiotic. Physical Exam GENERAL: NAD CARDIOVASCULAR: RRR RESPIRATORY: CTA ABDOMEN: BS x 4. Nontender to palpation. Initial orders for labs and / or imaging were placed and patient was placed in the waiting area until a bed is available. Please see further documentation for the full ED course.
[2023-11-21 15:32] LABS: Basophils # (auto) 0.05 K/uL (0.00-0.20); Basophils % (auto) 0.8 %; Eosinophils # (auto) 0.17 K/uL (0.00-0.50); Eosinophils % (auto) 2.8 %; Hematocrit (blood only) 42.3 % (42.0-52.0); Immature Granulocytes # (auto) 0.01 K/uL (0.01-0.20); Immature Granulocytes % (auto) 0.2 %; Lymphocytes # (auto) 2.97 K/uL (1.20-3.40); Lymphocytes % (auto) 49.1 %; Mean Corpuscular Hemoglobin 36.4 pg (25.0-34.0); Mean Corpuscular Hgb Conc 35.5 g/dL (32.0-36.0); Mean Corpuscular Volume 102.7 fL (80.0-100.0); Monocytes # (auto) 0.53 K/uL (0.11-0.59); Monocytes % (auto) 8.8 %; Neutrophils # (auto) 2.32 K/uL (1.40-6.50); Neutrophils % (auto) 38.3 %; Platelet Count 140 K/uL (130-400); RDW Coefficient of Variation 11.9 % (11.5-14.5); RDW Standard Deviation 45.3 fL (36.4-46.3); Red Blood Count 4.12 M/uL (4.70-6.10); White Blood Count 6.05 K/ul (4.8-10.8)
[2023-11-21 15:55] LABS: Albumin Globulin Ratio 1.6 (0.9-2); Albumin Level 4.6 gm/dl (3.4-5.0); BUN Creatinine Ratio 7.8 (10-20); Bilirubin,Total 0.9 mg/dl (0.2-1.0); Calcium 8.9 mg/dl (8.6-10.3); Creatinine Clr Calc Pharmacy 86.1 ml/min; Est GFR (African American) 92.8 ml/min; Est GFR (Non-African American) 80.1 ml/min; Globulin 2.8 gm/dl (2.5-4.0); Magnesium 1.6 mg/dl (1.7-2.4); Potassium 4.2 mmol/L (3.5-5.1); Total Protein 7.4 gm/dl (6.0-8.3)
[2023-11-21] MEDS: CEROVITE ADV FORMULA TAB PO ONE (16:42)
[2023-11-21] MEDS: MAGNESIUM SULFATE / D5W 1 GM/100 ML BAG IV STA (16:42)
--- NOTE | 2023-11-21 16:48 | Emergency Department Note ---
Impression & Plan Hyponatremia, Alcohol abuse, Splenic vein thrombosis ED Provider Note Provider: Adalberto Silva MD DATE OF SERVICE: 11/21/2023 CHIEF COMPLAINT: Referred by HISTORY OF PRESENT ILLNESS: Patient is a 58-year-old gentleman history of alcoholism and hypertension seen here overnight on the in the ER complaining of hematuria. Had evaluation at the time showing findings concerning for splenic vein thrombus as well as significant hyponatremia and a possible UTI. Has not taken the antibiotic outpatient but states his hematuria has resolved. States he continues to drink and has been drinking heavily for many years. Has not fallen recently maybe more than a month ago. Denies any pain currently. Talked with his daughter who reached out to his doctor today and daughter convinced him to come back here for evaluation. He denies any significant nausea or vomiting. Has had some withdrawal and shakiness in the past. PAST MEDICAL HISTORY: As noted above MEDICATIONS: Reviewed home medications SOCIAL HISTORY: Heavy alcohol abuse, smoker PHYSICAL EXAM: GENERAL: alert and oriented in no acute distress on stretcher Head: normocephalic and atraumatic EYES: No injection, discharge or icterus. PERRL, EOMI. very slight nystagmus. NECK: Trachea midline. Supple. ENT: Mucous membranes pink and moist. LUNGS: Airway patent. No retractions. Breath sounds clear with good air entry bilaterally. HEART: Regular rate and rhythm. No chest wall tenderness ABDOMEN: Soft and non-tender, without guarding or rebound. SKIN: Acyanotic, warm, dry, without rashes EXTREMITIES: Without swelling, tenderness or deformity almost entirely healed slight abrasion to the left elbow. NEUROLOGICAL: No focal deficits. No aphasia. No facial droop minimally slurred speech. Normal strength and tone in the extremities. Sensation to gross touch normal. EK bpm normal sinus rhythm. No PVC or PAC with nonspecific T wave changes and QTc of 412 CONTINUOUS CARDIAC MONITORING: was ordered and showed a heart rate of 60s bpm in normal sinus rhythm Patient's laboratory studies and imaging reviewed. Differential includes Infection, dehydration, cirrhosis, GI, metabolic abnormality, hypo/hyperglycemia, electrolyte disturbance, anemia, hypoxia, cardiac sources, toxicologic, neurologic, as well as other pathologies. IMPRESSION/MEDICAL DECISION MAKING: Alcohol level mildly elevated. Seems mildly intoxicated. No findings concerning for acute withdrawal at this time. No clear history of seizure/DT reported from the patient. No thrombocytopenia or leukopenia on blood work. Continued significant hyponatremia 123. Magnesium slightly low at 1.6. Normal renal function. No significant trauma reported pain at this time. Doubt this represents pancreatitis or acute hepatitis. Question a little bit LFT abnormalities related to his history of alcohol abuse. Likely beer potomania leading to the hyponatremia. Discussed with patient and patient's daughter was on speaker phone and convinced him to stay for further evaluation. Will need to monitor for occult withdrawal but do not see obvious symptoms at this time. Given a bit of magnesium supplementation and some mineral supplementation. Defer them long-term anticoagulation plan for the splenic vein thrombus. No abdominal pain or tenderness or discomfort reported by the patient. Pending urine sample to confirm UTI. Does not appear septic or febrile. Discussed with the hospitalist here for further care. DIAGNOSIS: Hyponatremia, alcohol abuse, splenic vein thrombus DISPOSITION: Hospitalist will evaluate Patient was agreeable with this plan. Past Med/Surg History Problem List Splenic vein thrombosis (Acute) Alcohol abuse (Acute) UTI (urinary tract infection) (Acute) Splenic vein thrombosis (Acute) Acute hyponatremia (Acute) Alcoholism (Acute) Hematuria (Acute) Right otitis externa Right otitis media URI (upper respiratory infection) Fever Macrocytosis without anemia Blood glucose elevated Chronic pancreatitis Elevated serum creatinine Anxiety "HIGH" ANXIETY PER DAUGHTER Cigarette smoker Ischemic cardiomyopathy History of inferior wall myocardial infarction Solitary pulmonary nodule (Chronic) Inhibited sexual excitement (Acute) Fatty liver (Chronic) Depression (Chronic) Asthma (Chronic) Hyponatremia (Acute) Antiplatelet or antithrombotic long-term use Medicare annual wellness visit, initial Screening for malignant neoplasm of prostate Renal insufficiency Esophageal reflux (Acute) Hyperlipemia (Chronic) HTN (hypertension) (Chronic) Seizure PT DAUGHTER and PATIETN DENIES HX SEIZURE CAD in [place] artery (Chronic) Alcoholism S/P laparoscopic cholecystectomy (09/29/20) Laparoscopic cholecystectomy with lysis of adhesions Dr. Marquez Medical History History of claustrophobia COVID-19 virus detected Alcoholism Cirrhosis Irregular heart rhythm Acid reflux Abdominal pain Acute pancreatitis Tobacco use Anxiety CAD in [place] artery Esophageal reflux COPD (chronic obstructive pulmonary disease) Seizure HTN (hypertension) Hyperlipemia NC (myocardial infarction) Surgical History History of surgery on right wrist S/P laparoscopic cholecystectomy (09/29/20) History of cataract surgery History of surgery Family History Father Family history of pancreatic cancer Family history of diabetes mellitus Mother Family history of diabetes mellitus Aunt Family hx of colon cancer Grandfather (Paternal) Colorectal cancer Other Cirrhosis Heart disease Hypertension Prostate cancer Denies family history of Ovarian cancer Myocardial infarction Breast cancer Social History Smoking Status: Current every day smoker Tobacco Type: Cigarettes Age Started Using Tobacco: 14; packs per day: 0.5; Cigarettes Per Day: 20; Second Hand Exposure: Yes (PARENTS SMOKED); Do You Dip or Chew Tobacco: No; Hx Alcohol Use: Yes ("ALCOHLIC") Alcohol type: beer Hx Substance Use: Yes Preferred Language: [place] Communication Ability: Effective Communication Ability Comment: DAUGHTER HELPS FILL OUT PAPERWORK AND WITH MEDICAL CARE NEEDS Mask Design Engineer Required: No Beliefs That Will Affect Care: None marital status: Single Current Living Situation: Family Current Living Situation Comment: daughter current occupational status: disabled Feels Safe at Home: Yes Assistive Devices: None Allergies Allergies Allergy/AdvReac Type Severity Reaction Status Date / Time morphine AdvReac Unknown NAUSEA/VOMI Verified 11/21/23 17:42 TING Home Meds Home Medications Medication Instructions Recorded Confirmed aspirin 81 mg tablet,delayed 81 mg PO QAM 09/22/20 11/21/23 release gabapentin 600 mg tablet 600 - 1,200 mg PO DAILY 11/19/23 11/21/23 isosorbide mononitrate 60 mg 30 mg PO BID 11/19/23 11/21/23 tablet,extended release 24 hr Previous Rx's Medication Instructions Recorded clonazepam 1 mg tablet 1 mg PO TID #90 tabs 02/12/21 atorvastatin 80 mg tablet 80 mg PO HS #90 tabs 12/20/22 nitroglycerin 0.4 mg sublingual 0.4 mg sublingual Q5M PRN Chest 12/23/22 tablet Pain #30 tabs ondansetron 4 mg disintegrating 4 mg PO Q6H PRN nausea and 12/23/22 tablet vomiting #30 tabs lisinopril 40 mg tablet 40 mg PO QAM #90 tabs 07/08/23 metoprolol tartrate 100 mg tablet 100 mg PO BID #180 tabs 10/10/23 omeprazole 40 mg capsule,delayed 40 mg PO QAM #90 caps 10/10/23 release cephalexin 500 mg capsule 500 mg PO Q6H 7 days #28 caps 11/20/23 Results & Data (ED) Vital Signs Vital Signs - 24 hr 11/21/23 14:08 11/21/23 16:20 Temperature 36.8 C 36.6 C Temperature Source Oral Oral Pulse Rate 67 Respiratory Rate 14 20 Respiratory Depth Normal Blood Pressure 139/78 Blood Pressure [Right Arm] 144/75 H Blood Pressure Mean 98 Blood Pressure Mean [Right Arm] 98 Pulse Oximetry 97 97 Oxygen Delivery Method Room Air Room Air Sepsis Recent Fever Within 48 Hours No Sepsis New/Unexplained Change in Mental Status N/A Sepsis Action Taken by Nursing No Action Required Laboratory Data 11/21/23 15:22 11/21/23 15:22 Lab Results 11/21/23 11/21/23 Range/Units 15:22 17:20 WBC 6.05 (4.8-10.8) K/ul RBC 4.12 L (4.70-6.10) M/uL Hgb 15.0 (14.0-18.0) g/dl Hct 42.3 (42.0-52.0) % MCV 102.7 H (80.0-100.0) fL MCH 36.4 H (25.0-34.0) pg MCHC 35.5 (32.0-36.0) g/dL RDW Std Deviation 45.3 (36.4-46.3) fL RDW Coeff of Lisa 11.9 (11.5-14.5) % Plt Count 140 (130-400) K/uL MPV 9.0 L (9.4-12.4) fL Immature Gran % (Auto) 0.2 % Neut % (Auto) 38.3 % Lymph % (Auto) 49.1 % Walsh % (Auto) 8.8 % Eos % (Auto) 2.8 % Baso % (Auto) 0.8 % Neut # (Auto) 2.32 (1.40-6.50) K/uL Lymph # (Auto) 2.97 (1.20-3.40) K/uL Walsh # (Auto) 0.53 (0.11-0.59) K/uL Eos # (Auto) 0.17 (0.00-0.50) K/uL Baso # (Auto) 0.05 (0.00-0.20) K/uL Immature Gran # (Auto) 0.01 (0.01-0.20) K/uL PT Cancelled 11.4 INR Cancelled 1.1 APTT Cancelled 28 PTT Ratio Cancelled 1.0 Sodium 123 L (136-145) mmol/L Potassium 4.2 (3.5-5.1) mmol/L Chloride 92 L (98-107) mmol/L Carbon Dioxide 23 (21-32) mmol/L Anion Gap 8 (3-11) BUN 8 (6-23) mg/dl Creatinine 1.02 (0.6-1.4) mg/dl Est Cr Clr Drug Dosing 86.1 ml/min Est GFR ( Amer) 92.8 ml/min Est GFR (Non-Af Amer) 80.1 ml/min BUN/Creatinine Ratio 7.8 L (10-20) Glucose 102 H (70-99(Fasting)) mg/dl Osmolality 283 (280-300) mOsm/kg Calcium 8.9 (8.6-10.3) mg/dl Phosphorus 4.0 (2.5-4.9) mg/dl Magnesium 1.6 L (1.7-2.4) mg/dl Total Bilirubin 0.9 (0.2-1.0) mg/dl AST 44 H (13-39) U/L ALT 58 H (7-52) U/L Alkaline Phosphatase 55 (34-104) U/L Total Protein 7.4 (6.0-8.3) gm/dl Albumin 4.6 (3.4-5.0) gm/dl Globulin 2.8 (2.5-4.0) gm/dl Albumin/Globulin Ratio 1.6 (0.9-2) Lipase 56 (11-82) U/L Ethyl Alcohol mg/dL 102.3 H (<10.0) mg/dl Administered Medications Discontinued Medications Magnesium Sulfate/Dextrose (Magnesium Sulfate / D5w) 1 gm in 100 mls @ 100 mls/hr IV NOW STA Stop: 11/21/23 17:27 Last Admin: 11/21/23 16:42 Dose: 100 mls/hr Documented By: LIBBY Multivitamins/Minerals (Cerovite Adv Formula Tab) 1 tab PO ONCE ONE Stop: 11/21/23 16:32 Last Admin: 11/21/23 16:42 Dose: 1 tab Documented By: LIBBY Discharge Plan Visit Data Chief Complaint: Leg Injury/Pain Stated Complaint: DOCTOR ADMIT ED Provider: Adalberto Silva Discharge Problem: Hyponatremia, Alcohol abuse, Splenic vein thrombosis Patient Disposition: Being Evaluated by Hospitalist Forms Stand Alone Forms: [facility] [place] Prescriptions Prescriptions: No Action clonazepam 1 mg tablet 1 mg PO TID Qty: 90 0RF atorvastatin 80 mg tablet 80 mg PO HS Qty: 90 3RF nitroglycerin 0.4 mg tablet, sublingual 0.4 mg SL Q5M PRN (Reason: Chest Pain) Qty: 30 5RF lisinopril 40 mg tablet 40 mg PO QAM Qty: 90 3RF metoprolol tartrate 100 mg tablet 100 mg PO BID Qty: 180 3RF omeprazole 40 mg capsule,delayed release(DR/EC) 40 mg PO QAM Qty: 90 3RF ondansetron 4 mg tablet,disintegrating 4 mg PO Q6H PRN (Reason: nausea and vomiting) Qty: 30 2RF aspirin 81 mg Tablet,Delayed Release (Dr/Ec) 81 mg PO QAM gabapentin 600 mg tablet 600 - 1,200 mg PO DAILY Rx Instructions: take 600mg tab daily; take 1200mg daily PRN for abdominal pain isosorbide mononitrate 60 mg tablet extended release 24 hr 30 mg PO BID cephalexin 500 mg capsule 500 mg PO Q6H 7 Days Qty: 28 0RF Rx Instructions: 11/21/23 PER PT: NOT STARTED YET Referrals Referrals: Tahir Carpenter, [Primary Care Provider] -
[2023-11-21 17:57] LABS: INR 1.1 (0.9-1.1); Partial Thromboplastin Time 28 Seconds (21-31); Prothrombin Time 11.4 Seconds (9.0-12.0)
[2023-11-21] MEDS ORDERED: MAGNESIUM HYDROXIDE SUSP 30 ML UDC PO PRN (18:19)
[2023-11-21] MEDS ORDERED: POLYETHYLENE (MIRALAX) 17 GM PACK PO PRN (18:19)
[2023-11-21] MEDS ORDERED: ACETAMINOPHEN 325 MG TAB PO PRN (18:19)
[2023-11-21] MEDS ORDERED: ONDANSETRON INJ 2 MG/ML 2 ML VIAL IV PRN (18:19)
[2023-11-21] MEDS ORDERED: LORazepam 1 MG in SYRINGE 0.5 ML IV PRN ×2 (18:40→22:45)
[2023-11-21] MEDS: chlordiazePOXIDE HCl 25 MG CAP PO ONE (18:57)
[2023-11-21] MEDS ORDERED: cloNIDine HCL 0.1 MG TAB PO PRN (19:31)
[2023-11-21 20:12] LABS: Appearance Urine Clear (Clear); Bacteria Urine Automated None Seen (None Seen); Bilirubin Urine Negative (Negative); Blood Urine 3+ (Negative); Cast Urine Automated 0-2 /lpf (0-2); Color Urine Yellow; Epithelial Cell Urine Auto 0-2 /hpf (0-2); Glucose Urine UA Negative (Negative); Ketones Urine Negative (Negative); Leukocyte Esterase Urine Negative (Negative); Nitrite Urine Negative (Negative); Protein Urine Negative (Negative); Specific Gravity Urine 1.004 (1.000-1.030); Urobilinogen Urine Negative (Negative); WBC Urine Automated 0-5 /hpf (0-5)
[2023-11-21 20:15] LABS: BUN Creatinine Ratio 7.7 (10-20); Calcium 9.3 mg/dl (8.6-10.3); Creatinine Clr Calc Pharmacy 96.5 ml/min; Est GFR (African American) 106.5 ml/min; Est GFR (Non-African American) 91.9 ml/min; Potassium 4.2 mmol/L (3.5-5.1)
--- NOTE | 2023-11-21 20:36 | History & Physical Report ---
Date of Service November 21, 2023 Assessment & Plan (1) Splenic vein thrombosis: Plan: Patient denies any abdominal pain Given the fact that he has a recent hematuria, will not start any anticoagulation Will consult gastroenterology to obtain their opinion (2) Alcohol abuse: Plan: Patient drinks on a daily basis large amount of beer Will start him on Librium, Ativan as needed Thiamine Folic acid Monitor for withdrawal and PCU Consulted on alcohol cessation (3) Hematuria: Plan: Currently resolved Urine analysis is not consistent with urinary tract infection Will obtain ultrasound of the urinary bladder Obtain urology consultation Will empirically treat him with IV Rocephin (4) Cigarette smoker: Plan: Will prescribe nicotine patch (5) Hyponatremia: Plan: Appears to have a chronic hyponatremia His numbers ranging from 124-126 Obtain serum and urine osmolality Will give him IV fluids overnight Obtain sodium levels in the morning Consult audio visual aids director Monitor BMP every 6 hours (6) Hypomagnesemia: Plan: Magnesium level 1.6 Supplement Repeat magnesium level tomorrow (7) Ischemic cardiomyopathy: Plan: Patient denies any chest pain Continue his home medicine Metoprolol Lisinopril Imdur Atorvastatin Hold aspirin secondary to hematuria History of Present Illness Chief Complaint: Hematuria Primary Care Provider: Tahir Carpenter DO Patient is a 58-year-old gentleman history of alcoholism and hypertension, ischemic cardiomyopathy seen here overnight on the in the ER complaining of hematuria. Had evaluation at the time showing findings concerning for splenic vein thrombus as well as significant hyponatremia and a possible UTI. Has not taken the antibiotic outpatient but states his hematuria has resolved. States he continues to drink and has been drinking heavily for many years. Denies any pain currently. Talked with his daughter who reached out to his doctor today and daughter convinced him to come back here for evaluation. He denies any significant nausea or vomiting. Has had some withdrawal and shakiness in the past. He drinks a lot of beer on a daily, did not go without drinking for a while. After reviewing his blood work, patient has a chronic hyponatremia ranging from 124-126, today his sodium was 123, repeated 125. He denies any dizziness lightheadedness, no history of seizures. His hematuria resolved, he was started on p.o. antibiotics, she denies any abdominal pain, flank pain, denies history of trauma, no fever or chills. Allergies Allergy/AdvReac Type Severity Reaction Status Date / Time morphine AdvReac Unknown NAUSEA/VOMI Verified 11/21/23 17:42 TING Home Medications Medication Instructions Recorded Confirmed Type aspirin 81 mg tablet,delayed 81 mg PO QAM 09/22/20 11/21/23 History release clonazepam 1 mg tablet 1 mg PO TID #90 tabs 02/12/21 11/21/23 Rx atorvastatin 80 mg tablet 80 mg PO HS #90 tabs 12/20/22 11/21/23 Rx nitroglycerin 0.4 mg sublingual 0.4 mg sublingual Q5M PRN Chest 12/23/2206/15 Rx tablet Pain #30 tabs ondansetron 4 mg disintegrating 4 mg PO Q6H PRN nausea and 12/23/22 11/21/23 Rx tablet vomiting #30 tabs lisinopril 40 mg tablet 40 mg PO QAM #90 tabs 07/08/23 11/21/23 Rx metoprolol tartrate 100 mg tablet 100 mg PO BID #180 tabs 10/10/23 11/21/23 Rx omeprazole 40 mg capsule,delayed 40 mg PO QAM #90 caps 10/10/23 11/21/23 Rx release gabapentin 600 mg tablet 600 - 1,200 mg PO DAILY 11/19/23 11/21/23 History isosorbide mononitrate 60 mg 30 mg PO BID 11/19/23 11/21/23 History tablet,extended release 24 hr cephalexin 500 mg capsule 500 mg PO Q6H 7 days #28 caps 11/20/23 11/21/23 Rx Past Med/Surg History Problem List Hypomagnesemia Splenic vein thrombosis (Acute) Alcohol abuse (Acute) UTI (urinary tract infection) (Acute) Splenic vein thrombosis (Acute) Acute hyponatremia (Acute) Alcoholism (Acute) Hematuria (Acute) Right otitis externa Right otitis media URI (upper respiratory infection) Fever Macrocytosis without anemia Blood glucose elevated Chronic pancreatitis Elevated serum creatinine Anxiety "HIGH" ANXIETY PER DAUGHTER Cigarette smoker Ischemic cardiomyopathy History of inferior wall myocardial infarction Solitary pulmonary nodule (Chronic) Inhibited sexual excitement (Acute) Fatty liver (Chronic) Depression (Chronic) Asthma (Chronic) Hyponatremia (Acute) Antiplatelet or antithrombotic long-term use Medicare annual wellness visit, initial Screening for malignant neoplasm of prostate Renal insufficiency Esophageal reflux (Acute) Hyperlipemia (Chronic) HTN (hypertension) (Chronic) Seizure PT DAUGHTER and PATIETN DENIES HX SEIZURE 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 Marquez Medical History History of claustrophobia COVID-19 virus detected Alcoholism Cirrhosis Irregular heart rhythm Acid reflux Abdominal pain Acute pancreatitis Tobacco use Anxiety CAD in [place] artery Esophageal reflux COPD (chronic obstructive pulmonary disease) Seizure HTN (hypertension) Hyperlipemia [place] (myocardial infarction) Surgical History History of surgery on right wrist S/P laparoscopic cholecystectomy (09/29/20) History of cataract surgery History of surgery Family History Father Family history of pancreatic cancer Family history of diabetes mellitus Mother Family history of diabetes mellitus Aunt Family hx of colon cancer Grandfather (Paternal) Colorectal cancer Other Cirrhosis Heart disease Hypertension Prostate cancer Denies family history of Ovarian cancer Myocardial infarction Breast cancer Social History Smoking Status: Current every day smoker Tobacco Type: Cigarettes Age Started Using Tobacco: 14; packs per day: 0.5; Cigarettes Per Day: 20; Second Hand Exposure: Yes (PARENTS SMOKED); Do You Dip or Chew Tobacco: No; Hx Alcohol Use: Yes ("ALCOHLIC") Alcohol type: beer Hx Substance Use: Yes Preferred Language: Yakut Communication Ability: Effective Communication Ability Comment: DAUGHTER HELPS FILL OUT PAPERWORK AND WITH MEDICAL CARE NEEDS 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 PERRL, EOMI. very slight nystagmus. NECK: Trachea midline. Supple. ENT: Mucous membranes pink and moist. LUNGS: Airway patent. No retractions. Breath sounds clear with good air entry bilaterally. HEART: Regular rate and rhythm. No chest wall tenderness ABDOMEN: Soft and non-tender, without guarding or rebound. SKIN: Acyanotic, warm, dry, without rashes EXTREMITIES: Without swelling, tenderness or deformity almost entirely healed slight abrasion to the left elbow. NEUROLOGICAL: No focal deficits. No aphasia. No facial droop minimally slurred speech. Normal strength and tone in the extremities. Sensation to gross touch normal. Results & Data Results & Data Vital Signs (Past 12 Hours) Vital Signs Temp Pulse Resp BP BP Pulse Ox O2 Del Method 11/21/23 19:42 63 14 97 11/21/23 19:41 153/89 H 11/21/23 18:30 151/86 H 11/21/23 18:30 151/86 H 11/21/23 18:30 151/86 H 11/21/23 18:24 58 L 13 176/94 H 96 11/21/23 17:33 63 11/21/23 17:33 62 14 139/91 96 11/21/23 16:20 36.6 C 20 144/75 H 97 Room Air 11/21/23 14:08 36.8 C 67 14 139/78 97 Room Air Laboratory Results Abnormal lab results 11/21/23 11/21/23 11/21/23 Range/Units 15:22 19:44 19:57 RBC 4.12 L (4.70-6.10) M/uL MCV 102.7 H (80.0-100.0) fL MCH 36.4 H (25.0-34.0) pg MPV 9.0 L (9.4-12.4) fL Sodium 123 L 125 L (136-145) mmol/L Chloride 92 L 94 L (98-107) mmol/L BUN/Creatinine Ratio 7.8 L 7.7 L (10-20) Glucose 102 H (70-99(Fasting)) mg/dl Osmolality 267 L (280-300) mOsm/kg Magnesium 1.6 L (1.7-2.4) mg/dl AST 44 H (13-39) U/L ALT 58 H (7-52) U/L Urine Blood 3+ H (Negative) Urine RBC (Auto) 11-20 H (0-2) /hpf Urine Osmolality 112 L (500-800) mOsm/kg Ethyl Alcohol mg/dL 102.3 H (<10.0) mg/dl PG Care Time/CCT Total # of Minutes Spent Total Time Spent with Patient: Total time spent is greater than 50% in coordination of care (as documented) at patient's floor/unit and/or counseling patient: Coding Level of Care Code 50675 INT INP/OBS CARE 75MIN Diagnoses Splenic vein thrombosis I82.890 Alcohol abuse F10.10 Hematuria R31.9 Cigarette smoker F17.210 Hyponatremia E87.1 Hypomagnesemia E83.42 Ischemic cardiomyopathy I25.5
[2023-11-21] MEDS ORDERED: NITROGLYCERIN SL 0.4 MG/TAB TAB SL PRN (20:52)
[2023-11-21] MEDS ORDERED: ONDANSETRON 4 MG OD TAB PO PRN (20:52)
[2023-11-21] MEDS: cefTRIAXone SODIUM 2,000 MG/50 ML BAG IV STA (22:07)
[2023-11-21] MEDS: SODIUM CHLORIDE 0.9% 1,000 ML IV SCH (22:09)
[2023-11-21] MEDS: METOPROLOL TARTRATE 100 MG TAB PO SCH (22:09)
[2023-11-21] MEDS: ATORVASTATIN 40 MG TAB PO SCH (22:09)
[2023-11-21] MEDS ORDERED: Ativan IV Alcohol Withdrawal--Active Protocol IV PRN (22:44)
[2023-11-21] MEDS ORDERED: LORazepam 3 MG in SYRINGE 1.5 ML IV PRN (22:45)
[2023-11-21] MEDS ORDERED: LORazepam 2 MG in SYRINGE 1 ML IV PRN (22:45)
[2023-11-21 23:10] LABS: BUN Creatinine Ratio 7.6 (10-20); Calcium 9.1 mg/dl (8.6-10.3); Creatinine Clr Calc Pharmacy 83.6 ml/min; Est GFR (African American) 89.6 ml/min; Est GFR (Non-African American) 77.3 ml/min; Potassium 3.9 mmol/L (3.5-5.1)
[2023-11-21] MEDS: chlordiazePOXIDE HCl 25 MG CAP PO SCH (23:59)
--- NOTE | 2023-11-22 03:29 | Ultrasound Report ---
Exam(s): US RENAL EXAM: US Retroperitoneal Complete, Renal CLINICAL HISTORY: Reason for exam: hematuria. TECHNIQUE: Real-time complete ultrasound of the retroperitoneum with image documentation. COMPARISON: CT abdomen/pelvis on 11/19/2023 FINDINGS: Right kidney: Right kidney measures 12.2 cm in length. No hydronephrosis or stone. Prominent column of Shahram. Left kidney: Left kidney measures 11.7 cm in length. No hydronephrosis or stone. Left renal cyst with septation measures up to 5. 2 cm. No further follow-up is necessary. Bladder: Bilateral ureteral jets noted. Visualized portions of the bladder are grossly unremarkable. Other findings: Increased echogenicity of the liver may represent hepatic steatosis. IMPRESSION: No hydronephrosis or stone. Electronically signed by: Chris Duffy M.D. 11/22/23 03:28 AM
[2023-11-22 07:04] LABS: Basophils # (auto) 0.09 K/uL (0.00-0.20); Basophils % (auto) 1.5 %; Eosinophils # (auto) 0.13 K/uL (0.00-0.50); Eosinophils % (auto) 2.1 %; Hematocrit (blood only) 44.7 % (42.0-52.0); Hemoglobin 15.6 g/dl (14.0-18.0); Immature Granulocytes # (auto) 0.05 K/uL (0.01-0.20); Immature Granulocytes % (auto) 0.8 %; Lymphocytes # (auto) 2.65 K/uL (1.20-3.40); Lymphocytes % (auto) 43.5 %; Mean Corpuscular Hemoglobin 36.3 pg (25.0-34.0); Mean Corpuscular Hgb Conc 34.9 g/dL (32.0-36.0); Mean Platelet Volume 8.9 fL (9.4-12.4); Monocytes % (auto) 9.9 %; Neutrophils # (auto) 2.57 K/uL (1.40-6.50); Neutrophils % (auto) 42.2 %; Platelet Count 149 K/uL (130-400); RDW Coefficient of Variation 12.1 % (11.5-14.5); RDW Standard Deviation 45.9 fL (36.4-46.3); White Blood Count 6.09 K/ul (4.8-10.8)
[2023-11-22 07:54] LABS: Albumin Level 4.6 gm/dl (3.4-5.0); Bilirubin,Total 1.1 mg/dl (0.2-1.0); Calcium 9.1 mg/dl (8.6-10.3); Magnesium 1.8 mg/dl (1.7-2.4); Potassium 4.6 mmol/L (3.5-5.1)
[2023-11-22 08:00] LABS: Albumin Globulin Ratio 1.5 (0.9-2); BUN Creatinine Ratio 8.3 (10-20); Creatinine Clr Calc Pharmacy 79.9 ml/min; Est GFR (African American) 86.6 ml/min; Est GFR (Non-African American) 74.7 ml/min; Globulin 3.1 gm/dl (2.5-4.0); Total Protein 7.7 gm/dl (6.0-8.3)
[2023-11-22] MEDS: FOLIC ACID 1 MG TAB PO SCH (08:37)
[2023-11-22] MEDS: ISOSORBIDE MONO EXTENDED REL 60 MG TABCR PO SCH (08:38)
[2023-11-22] MEDS: THIAMINE HCL 100 MG TAB PO SCH (08:38)
[2023-11-22] MEDS: lisinopril 40 MG TAB PO SCH (08:39)
[2023-11-22] MEDS: PANTOprazole 40 MG TAB PO SCH (08:39)
[2023-11-22] MEDS: GABAPENTIN 600 MG TAB PO SCH (08:39)
[2023-11-22] MEDS: clonazePAM 1 MG TAB PO SCH (08:47)
[2023-11-22] MEDS: NICOTINE 21 MG/24 HR TDSY TD SCH (08:47)
[2023-11-22] MEDS: METOPROLOL TARTRATE 25 MG TAB PO SCH (10:28)
--- NOTE | 2023-11-22 10:32 | Gastrointestinal Consultation ---
Date of Consultation November 22, 2023 Assessment & Plan (1) Abnormal finding on imagin58 year old male with history of alcoholism, hypertension, ischemic cardiomyopathy who presented to the ED for evaluation of hematuria - imaging showing splenic vein thrombus and a partially calcified mass measuring up to 1.6 cm adjacent to the proximal sigmoid colon Agree w/ urology consultation given hematuria, splenic vein thrombus Colonoscopy recommended - He refused examination - I re-educated him on this procedure and asked him to re-consider diagnostic evaluation - Family history of colon cancer ETOH and tobacco cessation recommended ETOH withdrawal protocol We appreciate assistance in the management of any serological abnormality and corrections to include: hemoglobin >7, INR <2, platelets >50,000, potassium levels >3.5 but <5.3, and sodium levels within 5 points of the reference range prior to endoscopic evaluation. Thank you for allowing us to participate in the care of this patient. Please call with any acute changes, questions or concerns. Please see addendum below with additional recommendation from my supervising physician. I spent a total of 60 minutes on the date of service in review of patient's record, and previously obtained information in person and appropriate medical v isit, discussion and education of plan, with patient and/or caregiver, placing orders for tests/referral/procedures as medically necessary and documentation of pertinent clinical information in patient's medical records for their visit today. Supervising Physician Co-Signing Physician Notes I examined the patient and reviewed the medical record, laboratory data and imaging studies. I agree with the assessment and plan of care as suggested by the advanced practice provider. Patient with With no GI symptoms at the present time he has not had a colonoscopy before he had a CT scan which showed that there was a calcific lesion not in the colon but not adjacent to the colon which would probably be fat necrosis on physical exam his abdomen is soft no tenderness no masses appreciated he still continues to drink at the current time I would recommend 1. Can have colonoscopy as an outpatient as he has never had a colonoscopy do not suspect he has a colonic masses on the CT that calcified lesion is outside the colon 2. Advised on alcohol sustenance as he already has fatty liver 3. Consult hematology regarding splenic vein thrombus unclear etiology may need an coagulum elation as per hematology Thank you for allowing us to take part in the care of your patient he can follow-up with GI as an outpatient and he can have his colonoscopy as an outpatient History of Present Illness Reason for Consultation: splenic vein thrombosis Requesting Physician: Philip Attending Physician: Orlando Palacios MD History of Present Illness 58 year old male with history of alcoholism, hypertension, ischemic cardiomyopathy who presented to the ED for evaluation of hematuria - imaging showing splenic vein thrombus. He left AMA to care for his aging mother, and presented back to the ED the following day after he made arrangement for her care. GI was asked to evaluate. Pt was seen and evaluated, chart reviewed. He notes from a GI standpoint he feels "fine." He denies abd pain to me. No nausea, vomiting. Tolerating oral intake and had just finished a regular breakfast tray at time of my arrival. No GERD. No dysphagia. Stools move daily. Denies black or bloody stools. No weight changes. He notes hematuria x 3 days which prompted ED evaluation - suggests this has since resolved. No fever, chills, CP, SOB. He is on daily ASA. No NSAIDs. No AC at present given presentation with hematuria. Urology consultation pending. 1 PPD Drinks [address] beer daily CT showing Partially calcified mass measuring up to 1.6 cm adjacent to the proximal sigmoid colon and thrombus noted within the portosystemic confluence extending to the distal splenic vein. EGD: none Colonoscopy: none Family history of colon cancer in a grandfather Allergies Allergy/AdvReac Type Severity Reaction Status Date / Time morphine AdvReac Unknown NAUSEA/VOMI Verified 11/21/23 17:42 TING Home Medications Medication Instructions Recorded Confirmed Type aspirin 81 mg tablet,delayed 81 mg PO QAM 09/22/20 11/21/23 History release clonazepam 1 mg tablet 1 mg PO TID #90 tabs 02/12/21 11/21/23 Rx atorvastatin 80 mg tablet 80 mg PO HS #90 tabs 12/20/22 11/21/23 Rx nitroglycerin 0.4 mg sublingual 0.4 mg sublingual Q5M PRN Chest 12/23/22 11/21/23 Rx tablet Pain #30 tabs ondansetron 4 mg disintegrating 4 mg PO Q6H PRN nausea and 12/23/22 11/21/23 Rx tablet vomiting #30 tabs lisinopril 40 mg tablet 40 mg PO QAM #90 tabs 07/08/23 11/21/23 Rx metoprolol tartrate 100 mg tablet 100 mg PO BID #180 tabs 10/10/23 11/21/23 Rx omeprazole 40 mg capsule,delayed 40 mg PO QAM #90 caps 10/10/23 11/21/23 Rx release gabapentin 600 mg tablet 600 - 1,200 mg PO DAILY 11/19/23 11/21/23 History isosorbide mononitrate 60 mg 30 mg PO BID 11/19/23 11/21/23 History tablet,extended release 24 hr cephalexin 500 mg capsule 500 mg PO Q6H 7 days #28 caps 11/20/23 11/21/23 Rx Patient History Medical History History of claustrophobia COVID-19 virus detected MID 04/2020 PREOP TEST FOR CATARACT SX-POSITIVE RESULT [facility] -NO SYMPTOMS Cirrhosis Irregular heart rhythm PT DAUGHTER NOT SURE IF HAD IN HX - F/U DR KASPER- NO DOCUMENTED ARRHYTHMIAS Acid reflux Abdominal pain Acute pancreatitis Acute on chronic pancreatitis with history of alcohol usage - ON GOING F/U DR SHERWOOD Tobacco use HEAVY SMOKER COPD (chronic obstructive pulmonary disease) PT DAUGHTER DENIES LUNG PROBLEMS OR BREATHING ISSUES FOR PT - DENIES SOB WITH STAIRS - REPORTS HEAVY SMOKER [place] (myocardial infarction) 2010- acute inferior wall [place] - total RCA occlusion IN APPROX 1999 (PROCEDURE TO UNCLOG ARTERY PER DAUGHTER - PT REFUSED STENT(S) - OTHER NJ'S MILD Surgical History History of surgery on right wrist laceration repair History of cataract surgery bilateral History of surgery APPROX YR 1999 FOR [place] - "UNCLOG ARTERY" - DENIES STENT(S) Family History Father Family history of pancreatic cancer Family history of diabetes mellitus Mother Family history of diabetes mellitus Aunt Family hx of colon cancer Grandfather (Paternal) Colorectal cancer Other Cirrhosis Heart disease Hypertension Prostate cancer Denies family history of Ovarian cancer Myocardial infarction Breast cancer Social History Smoking Status: Current every day smoker Tobacco Type: Cigarettes Age Started Using Tobacco: 14; packs per day: 0.5; Cigarettes Per Day: 20; Second Hand Exposure: Yes (PARENTS SMOKED); Do You Dip or Chew Tobacco: No; Hx Alcohol Use: Yes ("ALCOHLIC") Alcohol type: beer Hx Substance Use: Yes Preferred Language: Kinyarwanda Communication Ability: Effective Communication Ability Comment: DAUGHTER HELPS FILL OUT PAPERWORK AND WITH MEDICAL CARE NEEDS Supervisor M[employer] Required: No Beliefs That Will Affect Care: None marital status: Single Current Living Situation: Family Current Living Situation Comment: daughter current occupational status: disabled Feels Safe at Home: Yes Assistive Devices: None Review of Systems Review of Systems: All other findings negative except as noted in HPI. Physical Exam Constitutional: WD/WN, vitals as above Respiratory: normal respiratory effort Cardiovascular: RRR, no murmur, no edema Gastrointestinal (Abdomen): normal bowel sounds, soft, nontender, no hepatosplenomegaly Skin: no rashes, warm and dry Results & Data Vital Signs (Past 12 Hours) Vital Signs Temp Pulse Pulse Resp BP Pulse Ox O2 Del Method 11/22/23 07:19 36.4 C L 56 L 19 153/79 H 98 Room Air 11/22/23 05:43 36.3 C L 60 18 162/91 H 95 Room Air 11/22/23 02:20 36.7 C 63 18 146/82 H 93 Room Air 11/22/23 00:02 79 11/21/23 22:52 36.6 C 72 18 166/93 H 96 Room Air Laboratory Results 11/22/23 11/21/23 11/21/23 Range/Units 06:52 22:35 19:57 WBC 6.09 (4.8-10.8) K/ul RBC 4.30 L (4.70-6.10) M/uL Hgb 15.6 (14.0-18.0) g/dl Hct 44.7 (42.0-52.0) % MCV 104.0 H (80.0-100.0) fL MCH 36.3 H (25.0-34.0) pg MCHC 34.9 (32.0-36.0) g/dL RDW Std Deviation 45.9 (36.4-46.3) fL RDW Coeff of Lisa 12.1 (11.5-14.5) % Plt Count 149 (130-400) K/uL MPV 8.9 L (9.4-12.4) fL Immature Gran % (Auto) 0.8 % Neut % (Auto) 42.2 % Lymph % (Auto) 43.5 % Sabine % (Auto) 9.9 % Eos % (Auto) 2.1 % Baso % (Auto) 1.5 % Neut # (Auto) 2.57 (1.40-6.50) K/uL Lymph # (Auto) 2.65 (1.20-3.40) K/uL Sabine # (Auto) 0.60 H (0.11-0.59) K/uL Eos # (Auto) 0.13 (0.00-0.50) K/uL Baso # (Auto) 0.09 (0.00-0.20) K/uL Immature Gran # (Auto) 0.05 (0.01-0.20) K/uL PT INR APTT PTT Ratio Sodium 129 L 126 L (136-145) mmol/L Potassium 4.6 3.9 (3.5-5.1) mmol/L Chloride 95 L 95 L (98-107) mmol/L Carbon Dioxide 27 25 (21-32) mmol/L Anion Gap 7 6 (3-11) BUN 9 8 (6-23) mg/dl Creatinine 1.08 1.05 (0.6-1.4) mg/dl Est Cr Clr Drug Dosing 79.9 83.6 ml/min Est GFR ( Amer) 86.6 89.6 ml/min Est GFR (Non-Af Amer) 74.7 77.3 ml/min BUN/Creatinine Ratio 8.3 L 7.6 L (10-20) Glucose 115 H 153 H (70-99(Fasting)) mg/dl Osmolality (280-300) mOsm/kg Calcium 9.1 9.1 (8.6-10.3) mg/dl Phosphorus (2.5-4.9) mg/dl Magnesium 1.8 (1.7-2.4) mg/dl Total Bilirubin 1.1 H (0.2-1.0) mg/dl AST 46 H (13-39) U/L ALT 60 H (7-52) U/L Alkaline Phosphatase 57 (34-104) U/L Total Protein 7.7 (6.0-8.3) gm/dl Albumin 4.6 (3.4-5.0) gm/dl Globulin 3.1 (2.5-4.0) gm/dl Albumin/Globulin Ratio 1.5 (0.9-2) Lipase (11-82) U/L Urine Color Yellow Urine Appearance Clear (Clear) Urine pH 6.0 (4.5-7.5) Ur Specific [place] 1.004 (1.000-1.030) Urine Protein Negative (Negative) Urine Glucose (UA) Negative (Negative) Urine Ketones Negative (Negative) Urine Blood 3+ H (Negative) Urine Nitrite Negative (Negative) Urine Bilirubin Negative (Negative) Urine Urobilinogen Negative (Negative) Ur Leukocyte Esterase Negative (Negative) Urine WBC (Auto) 0-5 (0-5) /hpf Urine RBC (Auto) 11-20 H (0-2) /hpf U Hyaline Cast (Auto) 0-2 (0-2) /lpf U Epithel Cells (Auto) 0-2 (0-2) /hpf Urine Bacteria (Auto) None Seen (None Seen) Urine Osmolality 112 L (500-800) mOsm/kg Ur Random Creatinine 19.4 mg/dl Ethyl Alcohol mg/dL (<10.0) mg/dl 11/21/23 11/21/23 11/21/23 Range/Units 19:44 17:20 15:22 WBC 6.05 (4.8-10.8) K/ul RBC 4.12 L (4.70-6.10) M/uL Hgb 15.0 (14.0-18.0) g/dl Hct 42.3 (42.0-52.0) % MCV 102.7 H (80.0-100.0) fL MCH 36.4 H (25.0-34.0) pg MCHC 35.5 (32.0-36.0) g/dL RDW Std Deviation 45.3 (36.4-46.3) fL RDW Coeff of Lisa 11.9 (11.5-14.5) % Plt Count 140 (130-400) K/uL MPV 9.0 L (9.4-12.4) fL Immature Gran % (Auto) 0.2 % Neut % (Auto) 38.3 % Lymph % (Auto) 49.1 % Sabine % (Auto) 8.8 % Eos % (Auto) 2.8 % Baso % (Auto) 0.8 % Neut # (Auto) 2.32 (1.40-6.50) K/uL Lymph # (Auto) 2.97 (1.20-3.40) K/uL Sabine # (Auto) 0.53 (0.11-0.59) K/uL Eos # (Auto) 0.17 (0.00-0.50) K/uL Baso # (Auto) 0.05 (0.00-0.20) K/uL Immature Gran # (Auto) 0.01 (0.01-0.20) K/uL PT 11.4 Cancelled INR 1.1 Cancelled APTT 28 Cancelled PTT Ratio 1.0 Cancelled Sodium 125 L 123 L (136-145) mmol/L Potassium 4.2 4.2 (3.5-5.1) mmol/L Chloride 94 L 92 L (98-107) mmol/L Carbon Dioxide 22 23 (21-32) mmol/L Anion Gap 9 8 (3-11) BUN 7 8 (6-23) mg/dl Creatinine 0.91 1.02 (0.6-1.4) mg/dl Est Cr Clr Drug Dosing 96.5 86.1 ml/min Est GFR ( Amer) 106.5 92.8 ml/min Est GFR (Non-Af Amer) 91.9 80.1 ml/min BUN/Creatinine Ratio 7.7 L 7.8 L (10-20) Glucose 91 102 H (70-99(Fasting)) mg/dl Osmolality 267 L 283 (280-300) mOsm/kg Calcium 9.3 8.9 (8.6-10.3) mg/dl Phosphorus 4.0 (2.5-4.9) mg/dl Magnesium 1.6 L (1.7-2.4) mg/dl Total Bilirubin 0.9 (0.2-1.0) mg/dl AST 44 H (13-39) U/L ALT 58 H (7-52) U/L Alkaline Phosphatase 55 (34-104) U/L Total Protein 7.4 (6.0-8.3) gm/dl Albumin 4.6 (3.4-5.0) gm/dl Globulin 2.8 (2.5-4.0) gm/dl Albumin/Globulin Ratio 1.6 (0.9-2) Lipase 56 (11-82) U/L Urine Color Urine Appearance (Clear) Urine pH (4.5-7.5) Ur Specific [place] (1.000-1.030) Urine Protein (Negative) Urine Glucose (UA) (Negative) Urine Ketones (Negative) Urine Blood (Negative) Urine Nitrite (Negative) Urine Bilirubin (Negative) Urine Urobilinogen (Negative) Ur Leukocyte Esterase (Negative) Urine WBC (Auto) (0-5) /hpf Urine RBC (Auto) (0-2) /hpf U Hyaline Cast (Auto) (0-2) /lpf U Epithel Cells (Auto) (0-2) /hpf Urine Bacteria (Auto) (None Seen) Urine Osmolality (500-800) mOsm/kg Ur Random Creatinine mg/dl Ethyl Alcohol mg/dL 102.3 H (<10.0) mg/dl PG Care Time/CCT Total # of Minutes Spent Total Time Spent with Patient: Total time spent is greater than 50% in coordination of care (as documented) at patient's floor/unit and/or counseling patient: Coding Level of Care Code 36604 IN/OBS CONSULT LVL 4,60M Diagnoses Abnormal finding on imaging R93.89
--- NOTE | 2023-11-22 10:55 | Nephrology Consultation ---
Date of Consultation November 22, 2023 Assessment & Plan (1) Acute hyponatremia: (2) Hematuria: (3) Alcohol abuse: (4) Hypomagnesemia: (5) Alcoholism: (6) HTN (hypertension): (7) Hyperlipemia: Plan 58-year-old gentleman admitted with episode of gross hematuria and acute hyponat remia with history of chronic hyponatremia. On admission serum sodium was 123 which slowly improved to 129 this morning. Generally his sodium runs somewhere from 125-130 at least since 2019. Urine osmolality has been relatively low at 267. Has normal renal function, baseline creatinine 1.0-1.1. Urinalysis with no proteinuria. Hematuria lasted for 1 day which currently completely resolved. Renal ultrasound and CT abdomen pelvis was unremarkable for any structural urological abnormality. Hyponatremia in the setting of long-term smoking and excessive alcohol intake with fatty infiltration of liver and changes in LFTs. Sodium already started to improve up to 129. --Discussed in detail about the importance of quitting smoking and avoiding excessive alcohol intake to avoid critical hyponatremia. Encouraged to increase p.o. intake and avoid excessive free water and excessive alcohol. --Will check serum sodium in the afternoon --If blood pressure remain elevated, recommend starting on Lasix 20 mg daily and amlodipine if needed. --Recommend age-appropriate screening including colonoscopy, PSA --With history of gross hematuria, normal renal function, no proteinuria and long history of smoking, eventually he should have urologic evaluation and cystoscopy. Thank you for allowing me to participate in your patient's care. It was a pleasure to see Herve. History of Present Illness Reason for Consultation: Hyponatremia, gross hematuria. Attending Physician: Orlando Palacios MD History of Present Illness Mr. Herve Zavala is a 58-year-old male with PMH of alcoholism and hypertension, admitted with gross hematuria, hyponatremia. Nephrology consult was requested for management of hyponatremia. Electronic medical adversity reviewed in detail during patient's visit. Herve was present to the hospital initially on November 18 with gross hematuria. He was discharged then again admitted on 11/21/2023. Evaluation is concerning for splenic vein thrombosis. Hematuria continued for just a day and then resolved. CT abdomen pelvis showed otherwise normal kidney, no hydronephrosis, nephrolithiasis or renal mass. No known history of nephrolithiasis. Urinalysis was negative for proteinuria. Lab showed normal renal function, 1.0-1.1. On admission he was found to have acute hyponatremia with serum sodium 123. Record review shows he has history of chronic hyponatremia at least since 2019. Sodium has slowly improved over last 24 hours, up to 129 this morning. Urine osmolality 267. Has not been on thiazide diuretics. No history of hypothyroidism or adrenal insufficiency. No personal history of malignancy however never had colonoscopy done. Chest x-ray was unremarkable. Blood pressure has been stable. Current active smoker, smokes about 1 pack/day for years. Drinks alcohol heavily. Imaging was concerning for fatty infiltration of the liver and LFTs are mildly elevated. No family history of CKD or ESKD. History of coronary artery disease, has been following with cardiology, lately stable from cardiac standpoint, has been on metoprolol, Imdur and lisinopril, blood pressure has been reasonably controlled. No history of diabetes. He reports overall feeling well this morning, denies any headache, confusion, dizziness or lightheadedness. No shortness of breath or chest pain. Reports decent p.o. intake. Allergies Allergy/AdvReac Type Severity Reaction Status Date / Time morphine AdvReac Unknown NAUSEA/VOMI Verified 11/21/23 17:42 TING Home Medications Medication Instructions Recorded Confirmed Type aspirin 81 mg tablet,delayed 81 mg PO QAM 09/22/20 11/21/23 History release clonazepam 1 mg tablet 1 mg PO TID #90 tabs 02/12/21 11/21/23 Rx atorvastatin 80 mg tablet 80 mg PO HS #90 tabs 12/20/22 11/21/23 Rx nitroglycerin 0.4 mg sublingual 0.4 mg sublingual Q5M PRN Chest 12/23/22 11/21/23 Rx tablet Pain #30 tabs ondansetron 4 mg disintegrating 4 mg PO Q6H PRN nausea and 12/23/22 11/21/23 Rx tablet vomiting #30 tabs lisinopril 40 mg tablet 40 mg PO QAM #90 tabs 07/08/23 11/21/23 Rx metoprolol tartrate 100 mg tablet 100 mg PO BID #180 tabs 10/10/23 11/21/23 Rx omeprazole 40 mg capsule,delayed 40 mg PO QAM #90 caps 10/10/23 11/21/23 Rx release gabapentin 600 mg tablet 600 - 1,200 mg PO DAILY 11/19/23 11/21/23 History isosorbide mononitrate 60 mg 30 mg PO BID 11/19/23 11/21/23 History tablet,extended release 24 hr cephalexin 500 mg capsule 500 mg PO Q6H 7 days #28 caps 11/20/23 11/21/23 Rx Patient History Medical History History of claustrophobia COVID-19 virus detected Alcoholism Cirrhosis Irregular heart rhythm Acid reflux Abdominal pain Acute pancreatitis Tobacco use Anxiety CAD in [place] artery Esophageal reflux COPD (chronic obstructive pulmonary disease) Seizure HTN (hypertension) Hyperlipemia [place] (myocardial infarction) Surgical History History of surgery on right wrist S/P laparoscopic cholecystectomy (09/29/20) History of cataract surgery History of surgery Family History Father Family history of pancreatic cancer Family history of diabetes mellitus Mother Family history of diabetes mellitus Aunt Family hx of colon cancer Grandfather (Paternal) Colorectal cancer Other Cirrhosis Heart disease Hypertension Prostate cancer Denies family history of Ovarian cancer Myocardial infarction Breast cancer Social History Smoking Status: Current every day smoker Tobacco Type: Cigarettes Age Started Using Tobacco: 14; packs per day: 0.5; Cigarettes Per Day: 20; Second Hand Exposure: Yes (PARENTS SMOKED); Do You Dip or Chew Tobacco: No; Hx Alcohol Use: Yes ("ALCOHLIC") Alcohol type: beer Hx Substance Use: Yes Preferred Language: [place] Communication Ability: Effective Communication Ability Comment: DAUGHTER HELPS FILL OUT PAPERWORK AND WITH MEDICAL CARE NEEDS 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: No Beliefs That Will Affect Care: None marital status: Single Current Living Situation: Family Current Living Situation Comment: daughter current occupational status: disabled Feels Safe at Home: Yes Assistive Devices: None Review of Systems Review of Systems: All systems reviewed & are unremarkable except as noted in Subjective Physical Exam Constitutional: WD/WN, vitals as above no acute distress Eyes: + anicteric sclerae Respiratory: Auscultation: lungs clear to auscultation bilaterally Cardiovascular: Rate/Rhythm: regular rate and regular rhythm Heart Sounds: normal S1 and normal S2 Extremities: no edema Gastrointestinal (Abdomen): Inspection/Auscultation: abdomen normal to inspection and normal bowel sounds Percussion/Palpation: abdomen soft; abdomen nontender Musculoskeletal: Extremities: extremities normal to inspection Skin: no rashes, warm and dry Neurologic: no focal motor deficits and not confused Psychiatric: Orientation: alert and oriented x 3 Affect: euthymic affect Results & Data Vital Signs (Past 12 Hours) Vital Signs Temp Pulse Pulse Resp BP Pulse Ox O2 Del Method 11/22/23 10:38 57 L 11/22/23 10:27 63 139/80 11/22/23 07:19 36.4 C L 56 L 19 153/79 H 98 Room Air 11/22/23 05:43 36.3 C L 60 18 162/91 H 95 Room Air 11/22/23 02:20 36.7 C 63 18 146/82 H 93 Room Air 11/22/23 00:02 79 11/21/23 22:52 36.6 C 72 18 166/93 H 96 Room Air PG Care Time/CCT Total # of Minutes Spent Total Time Spent with Patient: Total time spent is greater than 50% in coordination of care (as documented) at patient's floor/unit and/or counseling patient: Coding Level of Care Code 94714 INT INP/OBS CARE 3/75MIN Diagnoses Acute hyponatremia E87.1 Hematuria R31.9 Alcohol abuse F10.10 Hypomagnesemia E83.42 Alcoholism F10.20 Essential hypertension I10 Hypertension type: essential hypertension Hyperlipidemia, unspecified hyperlipidemia type E78.5 Hyperlipidemia type: unspecified (6) HTN (hypertension) Hypertension type: essential hypertension Qualified Code(s): I10 - Essential (primary) hypertension (7) Hyperlipemia Hyperlipidemia type: unspecified Qualified Code(s): E78.5 - Hyperlipidemia, unspecified
--- NOTE | 2023-11-22 12:21 | Urology Consultation ---
Date of Consultation November 22, 2023 Assessment & Plan (1) Hematuria: 58 yo/M admitted for hyponatremia, splenic vein thrombosis, hematuria and possible UTI Patient is afebrile and hemodynamically stable Labs reviewedcreatinine 1.08, WBC 6.09, hemoglobin 15.6, Na 129 UA 11/18 showed >20 RBC, 6-10 WBC, 3-5 epithelials, negative for bacteria UA 11/20 notable for 3+ blood, 11-20 RBC No urine culture He received Ceftriaxone in ED CT A/P 11/18 reviewedleft renal cyst, no stones or hydronephrosis, prostate mil dly enlarged, bladder is slightly distended Renal US showed no stone or hydronephrosis Voiding spontaneously, hematuria has cleared per patient report Recommend bladder scan as needed We discussed hematuria in detail, including possible etiologies We discussed recommendation for hematuria workup including cystoscopy, which can be done outpatient Defer management of splenic vein thrombosis to primary team Gross hematuria has resolved per patientreasonable to start anticoagulation and monitor We will arrange outpatient follow-up for hematuria workup, discussed with daughter by telephone during visit will sign off, please contact our service with any questions or concerns History of Present Illness Attending Physician: Orlando Palacios MD History of Present Illness This is a 58-year-old male with past medical history including alcohol abuse, hypertension, ischemic cardiomyopathy who was admitted for hyponatremia, hematuria and splenic vein thrombosis. He was previously evaluated in the emergency department on 11/19/2023 and was found to have hyponatremia and splenic vein thrombosis, concern for hematuria and UTI. He was recommended for admission but patient refused and signed out AMA. He returned on 11/21/23 and was agreeable to further evaluation and admission. He was admitted to the medicine service for management. Urology is consulted for hematuria. Lab work 11/20 notable for sodium 123, ethyl alcohol 102.3. He had normal renal function (1.02) and no leukocytosis (WBC 6.05). Urinalysis showed 3+ blood, 11- 20 RBC. Renal ultrasound 11/20 showed no hydronephrosis or stone, left renal cyst with septation measures up to 5.[address] A/P 11/18 reviewedleft renal cyst, no stones or hydronephrosis, prostate mildly enlarged, bladder is slightly distended Patient seen and examined at bedside. He is awake and sitting up at the side of the bed. He reports gross hematuria prior to arrival, but now resolved. He denies dysuria. He is voiding spontaneously and feels he is emptying his bladder well. No flank pain or bladder pain. He reports episode of gross hematuria about 1 month ago which resolved within a day. No personal history of kidney stones. Denies nausea, vomiting, fever or chills. He is a current every day smoker approximately 1 pack/day. Reports his grandfather has history of prostate cancer. Allergies Allergy/AdvReac Type Severity Reaction Status Date / Time morphine AdvReac Unknown NAUSEA/VOMI Verified 11/21/23 17:42 TING Home Medications Medication Instructions Recorded Confirmed Type aspirin 81 mg tablet,delayed 81 mg PO QAM 09/22/20 11/21/23 History release clonazepam 1 mg tablet 1 mg PO TID #90 tabs 02/12/21 11/21/23 Rx atorvastatin 80 mg tablet 80 mg PO HS #90 tabs 12/20/22 11/21/23 Rx nitroglycerin 0.4 mg sublingual 0.4 mg sublingual Q5M PRN Chest 12/23/22 11/21/23 Rx tablet Pain #30 tabs ondansetron 4 mg disintegrating 4 mg PO Q6H PRN nausea and 12/23/22 11/21/23 Rx tablet vomiting #30 tabs lisinopril 40 mg tablet 40 mg PO QAM #90 tabs 07/08/23 11/21/23 Rx metoprolol tartrate 100 mg tablet 100 mg PO BID #180 tabs 10/10/23 11/21/23 Rx omeprazole 40 mg capsule,delayed 40 mg PO QAM #90 caps 10/10/23 11/21/23 Rx release gabapentin 600 mg tablet 600 - 1,200 mg PO DAILY 11/19/23 11/21/23 History isosorbide mononitrate 60 mg 30 mg PO BID 11/19/23 11/21/23 History tablet,extended release 24 hr cephalexin 500 mg capsule 500 mg PO Q6H 7 days #28 caps 11/20/23 11/21/23 Rx Patient History Medical History History of claustrophobia COVID-19 virus detected MID 04/2020 PREOP TEST FOR CATARACT SX-POSITIVE RESULT [facility] -NO SYMPTOMS Cirrhosis Irregular heart rhythm PT DAUGHTER NOT SURE IF HAD IN HX - F/U DR KASPER- NO DOCUMENTED ARRHYTHMIAS Acid reflux Abdominal pain Acute pancreatitis Acute on chronic pancreatitis with history of alcohol usage - ON GOING F/U DR SHERWOOD Tobacco use HEAVY SMOKER COPD (chronic obstructive pulmonary disease) PT DAUGHTER DENIES LUNG PROBLEMS OR BREATHING ISSUES FOR PT - DENIES SOB WITH STAIRS - REPORTS HEAVY SMOKER [place] (myocardial infarction) 2010- acute inferior wall [place] - total RCA occlusion IN APPROX 1999 (PROCEDURE TO UNCLOG ARTERY PER DAUGHTER - PT REFUSED STENT(S) - OTHER TN'S MILD Surgical History History of surgery on right wrist laceration repair History of cataract surgery bilateral History of surgery APPROX YR 1999 FOR [place] - "UNCLOG ARTERY" - DENIES STENT(S) Family History Father Family history of pancreatic cancer Family history of diabetes mellitus Mother Family history of diabetes mellitus Aunt Family hx of colon cancer Grandfather (Paternal) Colorectal cancer Other Cirrhosis Heart disease Hypertension Prostate cancer Denies family history of Ovarian cancer Myocardial infarction Breast cancer Social History Smoking Status: Current every day smoker Tobacco Type: Cigarettes Age Started Using Tobacco: 14; packs per day: 0.5; Cigarettes Per Day: 20; Second Hand Exposure: Yes (PARENTS SMOKED); Do You Dip or Chew Tobacco: No; Hx Alcohol Use: Yes ("ALCOHLIC") Alcohol type: beer Hx Substance Use: Yes Preferred Language: Ukrainian Communication Ability: Effective Communication Ability Comment: DAUGHTER HELPS FILL OUT PAPERWORK AND WITH MEDICAL CARE NEEDS 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 Beliefs That Will Affect Care: None marital status: Single Current Living Situation: Family Current Living Situation Comment: daughter current occupational status: disabled Feels Safe at Home: Yes Assistive Devices: None Review of Systems Review of Systems: All systems reviewed & are unremarkable except as noted in HPI & below Physical Exam Constitutional: no acute distress Eyes: no scleral abnormality Respiratory: normal respiratory effort; no respiratory distress and no labored breathing Gastrointestinal (Abdomen): Inspection/Auscultation: abdomen normal to inspection Musculoskeletal: Head/Neck/Chest: normocephalic Neurologic: moves all extremities and awake Psychiatric: Orientation: alert and oriented x 3 Results & Data Vital Signs (Past 12 Hours) Vital Signs Temp Pulse Pulse Resp BP Pulse Ox O2 Del Method 11/22/23 10:54 36.3 C L 59 L 18 134/77 97 Room Air 11/22/23 10:38 57 L 11/22/23 10:27 63 139/80 11/22/23 07:19 36.4 C L 56 L 19 153/79 H 98 Room Air 11/22/23 05:43 36.3 C L 60 18 162/91 H 95 Room Air 11/22/23 02:20 36.7 C 63 18 146/82 H 93 Room Air PG Care Time/CCT Total # of Minutes Spent Total Time Spent with Patient: Total time spent is greater than 50% in coordination of care (as documented) at patient's floor/unit and/or counseling patient: Coding Level of Care Code 83101 IN/OBS CONSULT LVL 4,60M Diagnoses Hematuria R31.9
[2023-11-22] MEDS ORDERED: Heparin IV Adult Wt-Based Standard *NO* INITIAL Bolus Protocol IV SCH (17:45)
[2023-11-22] MEDS: HEPARIN SODIUM/DEXTROSE 25,000 UNITS/500 ML BAG IV SCH (18:11)
[2023-11-22 19:00] LABS: INR 1.1 (0.9-1.1); Partial Thromboplastin Time 27 Seconds (21-31); Prothrombin Time 11.7 Seconds (9.0-12.0)
[2023-11-23 01:19] LABS: ANTI-Xa, UFH(UnfractionatedHep 0.62 IU/ml (0.3-0.7)
--- NOTE | 2023-11-23 06:15 | Electrocardiogram Report ---
Test Reason : Blood Pressure : / mmHG Vent. Rate : 060 BPM Atrial Rate : 060 BPM P-R Int : 198 ms QRS Dur : 098 ms QT Int : 412 ms P-R-T Axes : 045 030 087 degrees QTc Int : 412 ms Normal sinus rhythm Nonspecific T wave abnormality Abnormal ECG When compared with ECG of 19-NOV-2023 23:07, Nonspecific T wave abnormality now evident in Lateral leads Confirmed by Foster Ridley ([id number]) on 11/23/2023 6:14:33 AM Referred By: REFERRED SELF Confirmed By:Foster Ridley
--- NOTE | 2023-11-23 06:27 | Hospitalist Progress Note ---
Date of Service November 22, 2023 Assessment & Plan (1) Splenic vein thrombosis: Plan: No symptoms Etiology uncertain He did have acute pancreatitis in the past, but he does not have symptomatic or radiographic evidence of chronic pancreatitis Etiology of his thrombosis uncertain Hypercoagulable state due to occult malignancy? other? Urology ok with anticoagulation GI agrees with anticoagulation Will use heparin drip initially to ensure no recurrent urological bleeding If urine stays clear then change to DOAC thereafter VERY POOR coumadin or lovenox candidate (2) Alcohol abuse: Plan: Patient drinks large amounts of beer on daily basis at home Is on Librium scheduled at this time along with PO Ativan as needed Cont Thiamine Cont Folic acid Cont gabapentin Monitor for withdrawal and DTs Etoh cessation is a must; will d/w patient (3) Hematuria: Plan: Resolved u/a with blood only no signs/symptoms of UTI Imaging of urinary tract without acute findings/pathology appreciate [facility] urology consultation will need outpatient cystoscopy to r/o bladder ca consider urine cytologies (4) Cigarette smoker: Plan: nicotine patch certified alcohol drug counselor to quit (5) Hyponatremia: Plan: Appears to have a chronic hyponatremia Typical range - 124-126 Serum osm noted; urine osm low 100s Na level improved with IV fluids overnight but will stop IV fluids now Beer potomania? Appreciate nephrology consult & recs Trend his Na levels (6) Hypomagnesemia: Plan: Magnesium level 1.6 at presentation Replaced, resolved (7) Ischemic cardiomyopathy: Plan: Compensated Prior echos with EF 45-50% Cont metoprolol tartrate but lower dose to 75mg BID due to bradycardia Cont lisinopril Cont Imdur Cont Atorvastatin aspirin on hold due to gross hematuria --> resume when able Follows with Dr Kathleen, [facility] Cardiology No recent ischemic symptoms Plan family updated appreciate GI, urology, and nephrology assistance Admission and Anticipated Discharge Date Admission Date: November 21, 2023 Subjective very anxious to go home denies any and all complaints including back pain, chest pain, flank pain, abd pain gross hematuria as resolved denies any LUTS wants to complete all procedures as outpatient but is willing to stay overnight tele overnight wnl multiple family members (mother, 2 sisters - at bedside) Review of Systems Review of Systems: gen - good appetite; denies any recent weight loss cv - no chest pain pulm - no dyspnea GI - no abd pain or N/V neuro - chronic tremor of left arm x 1 year Physical Exam Physical Exam: gen - NAD, no signs of etoh withdrawal neck - no JVD mouth - MMM heart - RRR, s1 s2, no murmur lungs - CTA b/l abd - soft NT ND BS+; no HSM; no flank tenderness to palpation b/l ext - no edema, pulses 2+ b/l neuro - no asterixis; minimal action tremor left hand psych - a/o x 3; no signs of DTs Results & Data Results & Data Vital Signs (Past 12 Hours) Vital Signs Temp Pulse Pulse Resp BP Pulse Ox O2 Del Method 11/22/23 19:15 36.4 C L 68 21 143/76 H 93 Room Air 11/22/23 15:24 36.4 C L 61 18 159/79 H 96 Room Air 11/22/23 14:47 64 11/22/23 10:54 36.3 C L 59 L 18 134/77 97 Room Air 11/22/23 10:38 57 L 11/22/23 10:27 63 139/80 11/22/23 07:19 36.4 C L 56 L 19 153/79 H 98 Room Air Laboratory Results Laboratory Results - last 24 hr 11/22/23 11/22/23 11/22/23 06:52 14:27 18:05 WBC 6.09 RBC 4.30 L Hgb 15.6 Hct 44.7 MCV 104.0 H MCH 36.3 H MCHC 34.9 RDW Std Deviation 45.9 RDW Coeff of Lisa 12.1 Plt Count 149 MPV 8.9 L Immature Gran % (Auto) 0.8 Neut % (Auto) 42.2 Lymph % (Auto) 43.5 [place] % (Auto) 9.9 Eos % (Auto) 2.1 Baso % (Auto) 1.5 Neut # (Auto) 2.57 Lymph # (Auto) 2.65 [place] # (Auto) 0.60 H Eos # (Auto) 0.13 Baso # (Auto) 0.09 Immature Gran # (Auto) 0.05 PT 11.7 INR 1.1 APTT 27 PTT Ratio 1.0 Heparin Anti-Xa, Unfract Sodium 129 L 128 L Potassium 4.6 Chloride 95 L Carbon Dioxide 27 Anion Gap 7 BUN 9 Creatinine 1.08 Est Cr Clr Drug Dosing 79.9 Est GFR ( Amer) 86.6 Est GFR (Non-Af Amer) 74.7 BUN/Creatinine Ratio 8.3 L Glucose 115 H Calcium 9.1 Magnesium 1.8 Total Bilirubin 1.1 H AST 46 H ALT 60 H Alkaline Phosphatase 57 Total Protein 7.7 Albumin 4.6 Globulin 3.1 Albumin/Globulin Ratio 1.5 PG Care Time/CCT Total # of Minutes Spent Total Time Spent with Patient: Total time spent is greater than 50% in coordination of care (as documented) at patient's floor/unit and/or counseling patient: Coding Level of Care Code 72932 SUB INP/OBS CARE 350MIN Diagnoses Splenic vein thrombosis I82.890 Alcohol abuse F10.10 Hematuria R31.9 Cigarette smoker F17.210 Hyponatremia E87.1 Hypomagnesemia E83.42 Ischemic cardiomyopathy I25.5
[2023-11-23 07:27] VITALS: O2SAT 96
[2023-11-23 08:27] LABS: Hematocrit (blood only) 40.5 % (42.0-52.0); Hemoglobin 14.1 g/dl (14.0-18.0); Mean Corpuscular Hemoglobin 36.2 pg (25.0-34.0); Mean Corpuscular Hgb Conc 34.8 g/dL (32.0-36.0); Mean Corpuscular Volume 103.8 fL (80.0-100.0); Mean Platelet Volume 9.4 fL (9.4-12.4); Platelet Count 145 K/uL (130-400); RDW Standard Deviation 45.5 fL (36.4-46.3); White Blood Count 4.95 K/ul (4.8-10.8)
[2023-11-23 08:51] LABS: Albumin Globulin Ratio 1.6 (0.9-2); Albumin Level 4.2 gm/dl (3.4-5.0); BUN Creatinine Ratio 10.4 (10-20); Bilirubin,Total 0.5 mg/dl (0.2-1.0); Calcium 8.8 mg/dl (8.6-10.3); Creatinine Clr Calc Pharmacy 64.5 ml/min; Est GFR (African American) 66.1 ml/min; Est GFR (Non-African American) 57.1 ml/min; Globulin 2.7 gm/dl (2.5-4.0); Magnesium 1.6 mg/dl (1.7-2.4); Total Protein 6.9 gm/dl (6.0-8.3)
[2023-11-23 09:04] LABS: ANTI-Xa, UFH(UnfractionatedHep 0.74 IU/ml (0.3-0.7)
[2023-11-23] MEDS: MAGNESIUM SULFATE / D5W 1 GM/100 ML BAG IV SCH (09:43)
--- NOTE | 2023-11-23 10:32 | Nephrology Progress Note ---
Date of Service November 23, 2023 Assessment & Plan (1) Acute hyponatremia: (2) Hematuria: (3) Alcohol abuse: (4) Hypomagnesemia: (5) Alcoholism: (6) HTN (hypertension): (7) Hyperlipemia: Plan 58-year-old gentleman admitted with episode of gross hematuria and acute hyponatremia with history of chronic hyponatremia. On admission serum sodium was 123 which slowly improved to 129 this morning. Generally his sodium runs somewhere from 125-130 at least since 2019. Urine osmolality has been relatively low at 267. Has normal renal function, baseline creatinine 1.0-1.1. Urinalysis with no proteinuria. Hematuria lasted for 1 day which currently completely resolved. Renal ultrasound and CT abdomen pelvis was unremarkable for any structural urological abnormality. Hyponatremia in the setting of long-term smoking and excessive alcohol intake with fatty infiltration of liver and changes in LFTs. Sodium stable around 128 to 129. --Discussed in detail about the importance of quitting smoking and avoiding excessive alcohol intake to avoid critical hyponatremia. Encouraged to increase p.o. intake and avoid excessive free water and excessive alcohol. --Change salt restricted diet to regular diet --Repeat serum sodium this afternoon, if no further improvement in sodium, recommend starting on Lasix 20 mg daily. --Recommend age-appropriate screening including colonoscopy, PSA Admission and Anticipated Discharge Date Admission Date: November 21, 2023 Terrell Edgar was seen and evaluated this morning. He reports overall feeling well, denies any concerns, anxious to go home. Blood pressure slightly elevated but he reports not taking any blood pressure meds this morning yet. Sodium staying relatively stable at 128 to 129. Review of Systems Review of Systems: Detailed review of system was done and was unremarkable except mentioned above. Physical Exam Constitutional: WD/WN, vitals as above no acute distress Eyes: + anicteric sclerae Respiratory: Auscultation: lungs clear to auscultation bilaterally Cardiovascular: Rate/Rhythm: regular rate and regular rhythm Heart Sounds: normal S1 and normal S2 Extremities: no edema Musculoskeletal: Extremities: extremities normal to inspection Skin: no rashes, warm and dry Neurologic: no focal motor deficits and not confused Psychiatric: Orientation: alert and oriented x 3 Affect: euthymic affect Results & Data Vital Signs (Past 12 Hours) Vital Signs Temp Pulse Pulse Resp BP Pulse Ox O2 Del Method 11/23/23 07:39 63 11/23/23 07:25 36.7 C 54 L 20 149/78 H 96 Room Air 11/23/23 02:53 36.5 C 65 18 155/80 H 97 Room Air 11/22/23 23:25 36.8 C 65 18 145/80 H 99 Room Air 11/22/23 22:54 60 PG Care Time/CCT Total # of Minutes Spent Total Time Spent with Patient: Total time spent is greater than 50% in coordination of care (as documented) at patient's floor/unit and/or counseling patient: Coding Level of Care Code 10556 SUB INP/OBS CARE 2/35MIN Diagnoses Acute hyponatremia E87.1 Hematuria R31.9 Alcohol abuse F10.10 Hypomagnesemia E83.42 Alcoholism F10.20 Essential hypertension I10 Hypertension type: essential hypertension Hyperlipidemia, unspecified hyperlipidemia type E78.5 Hyperlipidemia type: unspecified (6) HTN (hypertension) Hypertension type: essential hypertension Qualified Code(s): I10 - Essential (primary) hypertension (7) Hyperlipemia Hyperlipidemia type: unspecified Qualified Code(s): E78.5 - Hyperlipidemia, unspecified
[2023-11-23 11:12] VITALS: RESP 17
[2023-11-23] MEDS: APIXABAN 5 MG TABLET PO SCH (11:47)
[2023-11-23 15:36] VITALS: BP 124/77; PULSE 60; TEMP 97.7
[2023-11-23] MEDS: FUROSEMIDE 20 MG TAB PO ONE (16:23)
--- NOTE | 2023-11-23 17:06 | Discharge Summary ---
Date of Service date of admission - November 21, 2023 date of discharge - November 23, 2023 Admission HPI Per Admitting Provider Patient is a 58-year-old gentleman history of alcoholism and hypertension, ischemic cardiomyopathy seen here overnight on the in the ER complaining of hematuria. Had evaluation at the time showing findings concerning for splenic vein thrombus as well as significant hyponatremia and a possible UTI. Has not taken the antibiotic outpatient but states his hematuria has resolved. States he continues to drink and has been drinking heavily for many years. Denies any pain currently. Talked with his daughter who reached out to his doctor today and daughter convinced him to come back here for evaluation. He denies any significant nausea or vomiting. Has had some withdrawal and shakiness in the past. He drinks a lot of beer on a daily, did not go without drinking for a while. After reviewing his blood work, patient has a chronic hyponatremia ranging from 124-126, today his sodium was 123, repeated 125. He denies any dizziness lightheadedness, no history of seizures. His hematuria resolved, he was started on p.o. antibiotics, she denies any abdominal pain, flank pain, denies history of trauma, no fever or chills. Principal Diagnosis 1. hyponatremia - improved; admission sodium level 123; discharge sodium level 129. 2. hematuria - cause uncertain; urology follow-up advised for cystoscopy. 3. abnormal sigmoid colon on CT scan - outpatient colonoscopy needed. 4. alcohol abuse. 5. splenic vein thrombosis - cause uncertain. Discharge Exam gen - NAD, no signs of etoh withdrawal neck - no JVD mouth - MMM heart - RRR, s1 s2, no murmur lungs - CTA b/l abd - soft NT ND BS+; no HSM; no flank tenderness to palpation b/l ext - no edema, pulses 2+ b/l neuro - no asterixis; minimal action tremor left hand psych - a/o x 3; no signs of DTs Discharge Data Allergies Allergy/AdvReac Type Severity Reaction Status Date / Time morphine AdvReac Unknown NAUSEA/VOMI Verified 11/28/23 11:[address] [facility] Gastroenterology [facility] Urology [facility] Nephrology Ordered Studies Renal Ultrasound 11/21/23 19:32 Exam(s): US RENAL EXAM: US Retroperitoneal Complete, Renal CLINICAL HISTORY: Reason for exam: hematuria. TECHNIQUE: Real-time complete ultrasound of the retroperitoneum with image documentation. COMPARISON: CT abdomen/pelvis on 11/19/2023 FINDINGS: Right kidney: Right kidney measures 12.2 cm in length. No hydronephrosis or stone. Prominent column of Shahram. Left kidney: Left kidney measures 11.7 cm in length. No hydronephrosis or stone. Left renal cyst with septation measures up to 5. 2 cm. No further follow-up is necessary. Bladder: Bilateral ureteral jets noted. Visualized portions of the bladder are grossly unremarkable. Other findings: Increased echogenicity of the liver may represent hepatic steatosis. IMPRESSION: No hydronephrosis or stone. Electronically signed by: Chris Duffy M.D. 11/22/23 03:28 AM Urine cytologies - negative. Hospital Course (1) Splenic vein thrombosis: Found incidentally on imaging; asymptomatic from such. He did have acute pancreatitis in the past, but he does not have symptomatic or radiographic evidence of chronic pancreatitis. Etiology of his thrombosis uncertain. Hypercoagulable state due to occult malignancy? other? Although he had recent gross hematuria [facility] U[facility] saw him in consult and was ok with anticoagulation. [facility] GI also agreed with anticoagulation. He was initially on heparin drip to ensure no recurrent urological bleeding. He had no hematuria on heparin drip and therefore was transitioned to Eliquis. It was felt he was a very poor candidate for coumadin and thus a DOAC was chosen. He will take Eliquis 10mg BID x 7 days followed by 5mg BID. He will need at least 3 months of treatment. A referral will be made to hematology for hypercoagulable work-up as this thrombosis was not provoked. (2) Alcohol abuse: Patient drinks large amounts of beer on daily basis at home. He was treated with scheduled librium and ativan prn while hospitalized. He was supplemented with thiamine & folic acid. He had no signs of withdrawal or DTs during his stay. Etoh cessation is a must; this was d/w patient. (3) Hematuria: Patient presented with gross hematuria. The hematuria was painless; he had no signs/symptoms of UTI. Imaging of urinary tract without acute findings/pathology. Urine cytologies were negative. He was seen by [facility] who will follow him up in clinic and pursue cystoscopy. (4) Cigarette smoker: counseled to quit (5) Hyponatremia: Appears to have a chronic hyponatremia Typical range - 124-126 Serum osm was 267 Urine osm was low 100s Serum Na was 123 at admission, improving to 129 at discharge Beer potomania? He should try to fluid restrict at home if possible If sodium levels as outpatient continue to be stubborn consider low-dose diuretic Recommend repeat BMP within a week of discharge for stability (6) Hypomagnesemia: Magnesium level 1.6 at presentation Replaced, resolved (7) Ischemic cardiomyopathy: Compensated while here Prior echos with EF 45-50% Cont metoprolol tartrate Cont lisinopril Cont Imdur Cont Atorvastatin Cont aspirin (cautiously in light of hematuria and Eliquis use) Follows with Dr Kathleen, [facility] Cardiology No recent ischemic symptoms (8) Abnormal finding on imaging: On the most recent CT abd/pelvis the following was seen - "Partially calcified mass measuring up to 1.6 cm adjacent to the proximal sigmoid colon which is favored to relate to focus of fat necrosis. This is evolved from prior study dated April 14, 2019." [facility] saw patient in consult - thought that this calcified mass was likely benign given its chronicity. Further, the mass does not appear to be intra-mural. [id number] [facility] did advise outpatient colonoscopy. Total Time Total Time Spent Total Time Spent (In Minutes): 45 Discharge Plan Discharge Items Patient Disposition: Home - Self-Care Reason For Visit: HYPONATREMIA Discharge Diagnosis: 1. hyponatremia (low sodium level) - improved; admission sodium level 123; discharge sodium level 129. 2. hematuria (blood in urine) - cause uncertain; urology follow-up advised for cystoscopy. 3. abnormal sigmoid colon on CT scan - outpatient colonoscopy needed. 4. alcohol abuse. 5. splenic vein thrombosis - Eliquis blood thinner advised. Activity: As commented below Activity Comment: gradually increase activities over the next week Driving/Machine Use: NO DRIVING until seen by Dr Carpenter Non-emergency contact: Primary Care Provider and Specialist Call non-emergency contact if: you have any medication questions and your symptoms worsen Follow-up/Referrals: Sol Dicknison CRNP [Nurse Practitioner] - 12/12/23 10:30 am (outpatient cystoscopy needed for hematuria Hospital follow up scheduled December 11 at 10:[address] Peter and Sol Dickinson.) Nadege Verma CRNP [Nurse Practitioner] - 12/01/23 10:20 am (Hospital follow up scheduled November 30 at 10:20 with PADILLA Gupta) Tahir Carpenter DO [Primary Care Provider] - 11/25/23 2:30 pm (Hospital follow up scheduled November 24 at 2:30 with Kathie Hooper.) Анна Carson MD [Physician] - (you will need to see a blood specialist because of your splenic vein thrombosis; a referral will be made for you ) Diet: Regular Fluids: 1800ml (7 cups) Addtl Attending Provider Instructions: Mr Zavala, You were hospitalized due to the discovery of a blood clot in your vein that travels to the spleen (splenic vein thrombosis). We treated this initially with heparin IV, then transitioned you over to Nolvia cee. Eliquis is an oral blood thinner. The exact cause of your splenic vein blood clot is uncertain. You will need additional tests to find out the cause of thrombosis. In addition, we addressed low sodium, low magnesium, and blood in the urine (hematuria - see handout). [facility]rology saw you for the hematuria and is recommending an outpatient cystoscopy. This is when a small camera is run up into the bladder to look at the inside of the bladder to find the source for the bleeding. [facility] Gastroenterology was consulted because your CT scan of the abdomen showed an abnormality near your sigmoid colon. They are recommending an outpatient colonoscopy. Fortunately you did not have any additional bleeding in the urine after we started you on blood thinners. However, you are at risk of the blood coming back. Recommendations - 1. Eliquis blood thinner - 10mg twice daily x 7 days, then 5mg twice daily thereafter. Take your first dose of Eliquis TONIGHT. You will need to take this medicine for at least 3 months. It is best NOT TO DRINK ALCOHOL when you are taking Eliquis. 2. Try to abstain from all forms of alcohol. See handouts on resources includi ng the handout on naltrexone medicine. The latter can be used to help maintain sobriety. Talk to Dr Carpenter about the naltrexone if interested. 3. Take thiamine & folic acid supplements x 1 month. 4. Follow-up - see separate section Return to [facility] if - * you have fevers over 100 degrees * you have bleeding from any location as listed below * you have shortness of breath or chest pains * you have large amounts of blood in your urine * any other concerns It was our pleasure to care for you! -Dr Philip Izquierdo [employer] Provider Instructions: Anticoagulant (Blood Thinner) Medication Instructions: Your splenic vein thrombosis condition is typically treated with an anticoagulant. Anticoagulants will thin your blood to help prevent new clots. Your blood thinner is ELIQUIS. * You should take your medication exactly as directed. * Never skip a dose. * Never take a double dose. If you miss a dose, take it as soon as you remem tom. Call your Primary Care doctor if you experience any of the following: * Swelling or Pain in your leg * Sudden, continuous pain deep in a muscle * Pain that worsens when you are active or when you stand still for a long time * Chest Pain * Sudden Shortness of Breath * Rapid or pounding heart beat * Fainting * Dizziness * Cough with blood or bloody sputum * Sweating more than normal * Bruises * Heavy or uncontrolled bleeding * Blood in your urine, stool or vomit * Black or tarry stools * Heavy nose bleeding Caring for Your Self at Home: * Avoid sitting, standing or lying down for long periods without moving your legs and feet * When traveling by car, stop to get out and move around at least once every 3 hours * On long airplane, train or bus rides, get up and move around when possible * If you can't get up, wiggle your toes and tighten your calves to keep your blood moving Pending Studies at Discharge: No Stand-Alone Forms: My [facility], Smoking Cessation Medications and DC Order Prescriptions: New Eliquis 5 mg tablet 5 mg PO DIRECTED Qty: 70 0RF Rx Instructions: Take 10mg PO BID x 7 days, then 5mg PO BID thereafter. thiamine HCl (vitamin B1) 100 mg Tablet 200 mg PO BID 30 Days Qty: 120 0RF folic acid 1 mg Tablet 1 mg PO QAM 30 Days Qty: 30 0RF Continued clonazepam 1 mg tablet 1 mg PO TID Qty: 90 0RF atorvastatin 80 mg tablet 80 mg PO HS Qty: 90 3RF nitroglycerin 0.4 mg tablet, sublingual 0.4 mg SL Q5M PRN (Reason: Chest Pain) Qty: 30 5RF lisinopril 40 mg tablet 40 mg PO QAM Qty: 90 3RF metoprolol tartrate 100 mg tablet 100 mg PO BID Qty: 180 3RF omeprazole 40 mg capsule,delayed release(DR/EC) 40 mg PO QAM Qty: 90 3RF ondansetron 4 mg tablet,disintegrating 4 mg PO Q6H PRN (Reason: nausea and vomiting) Qty: 30 2RF aspirin 81 mg Tablet,Delayed Release (Dr/Ec) 81 mg PO QAM isosorbide mononitrate 60 mg tablet extended release 24 hr 30 mg PO BID Discontinued cephalexin 500 mg capsule 500 mg PO Q6H 7 Days Qty: 28 0RF Rx Instructions: 11/21/23 PER PT: NOT STARTED YET No Action gabapentin 600 mg tablet 600 mg PO BID Discharge Orders: Discharge Order (Routine); Ordered 11/23/23 Ordered By: Orlando Avalos/Other Patient Handouts: What is Hematuria?, Alcoholism Myths and Facts, Alcoholism Resources, Alcoholism: Getting Help Admission Data Admit Date/Time: 11/21/23 18:19 Attending Provider: Orlando Palacios Admit Provider: Caitlin Zeng Primary Care Provider: Tahir Carpenter Other Providers: Wally Sawant; Enrike Fernández; Ryley Araujo; Steff Jaffe; Kike Quiroz; Sol Dickinson Melissa A.; James Mckeon; Alix Muñiz; Ulisses Rice; Conor Perdomo; Damir Peter; Caitlin Zeng; Catia Mariscal; Delon Burt Other Interventions: Discharge Summary Assessment (RN) Last Done: 11/23/23 17:21 Coding Level of Care Code 29256 INP/OBS DISCH >30 MIN Diagnoses Splenic vein thrombosis I82.890 Alcohol abuse F10.10 Hematuria R31.9 Cigarette smoker F17.210 Hyponatremia E87.1 Hypomagnesemia E83.42 Ischemic cardiomyopathy I25.5 Abnormal finding on imaging R93.89
== END 2023-11-23 17:56 | disposition home or self-care (01) | DRG 815 ==
LOC: ED 14:01 → SUATTDRO 18:19 → INTOOBSV 18:19 → 4W 18:19

== ENCOUNTER 2025-04-30 12:12 | Observation (INO) ==
[2025-04-30 12:27] VITALS: TEMP 99.5
[2025-04-30 13:17] LABS: Hematocrit (blood only) 37.1 % (42.0-52.0); Hemoglobin 13.5 g/dL (14.0-18.0); Immature Granulocytes # (auto) 0.06 K/uL (0.01-0.20); Immature Granulocytes % (auto) 0.7 %; Mean Corpuscular Hemoglobin 37.0 pg (25.0-34.0); Mean Corpuscular Volume 101.6 fL (80.0-100.0); Platelet Count 236 K/uL (130-400); RDW Standard Deviation 47.1 fL (36.4-46.3); Red Blood Count 3.65 M/uL (4.70-6.10); White Blood Count 8.81 K/ul (4.8-10.8)
[2025-04-30] MEDS: SODIUM CHLORIDE 0.9% 1,000 ML IV SCH (13:30)
[2025-04-30] MEDS: KETOROLAC 30 MG/ML VIAL IV STA (13:30)
[2025-04-30] MEDS: ONDANSETRON INJ 2 MG/ML 2 ML VIAL IV STA (13:31)
[2025-04-30 13:38] LABS: Anion Gap 15.0 (3-11); Blood Urea Nitrogen 29.0 mg/dl (6-23); Calcium 7.9 mg/dl (8.6-10.3); Carbon Dioxide 24.0 mmol/L (21-32); Chloride 90.0 mmol/L (98-107); Creatinine Clr Calc Pharmacy 40.5 ml/min; Glucose 133.0 mg/dl (70-99(Fasting)); Potassium 2.7 mmol/L (3.5-5.1); Sodium 129.0 mmol/L (136-145)
[2025-04-30 13:44] LABS: INR 1.4 (0.9-1.1); Partial Thromboplastin Time 28 Seconds (21-31); Prothrombin Time 14.6 Seconds (9.0-12.0)
[2025-04-30 13:59] LABS: Alanine Aminotransferase 75.0 U/L (7-52); Albumin Globulin Ratio 0.9 (0.9-2); Albumin Level 3.8 gm/dl (3.4-5.0); Alkaline Phosphatase 106.0 U/L (34-104); Bilirubin,Total 1.4 mg/dl (0.2-1.0); Globulin 4.3 gm/dl (2.5-4.0); Lipase 848.0 U/L (11-82); Total Protein 8.1 gm/dl (6.0-8.3)
[2025-04-30] MEDS: POTASSIUM CHLORIDE 20 MEQ/15 ML UDC PO STA (14:26)
[2025-04-30] MEDS: POTASSIUM CHLORIDE / WTR 10 MEQ/100 ML PLCT IV SCH ×2 (14:26→19:09)
--- NOTE | 2025-04-30 15:01 | CT Scan Report ---
ABDOMEN AND PELVIS CT WITHOUT CONTRAST CT DOSE: 1004.14 mGy.cm HISTORY: Acute generalized abdominal pain in a patient with history of acute pancreatitis generalize d abdominal pain, hx pancreatitis TECHNIQUE: Multiaxial CT images of the abdomen and pelvis were performed without contrast. A dose lo wering technique was utilized adhering to the principles of ALARA. COMPARISON STUDY: CT pelvis 09/30/2024, CT abdomen and pelvis 11/19/2023 FINDINGS: Cardiomegaly with coronary artery calcifications. Mild dependent subsegmental bibasilar ate lectasis. No pneumatosis or pneumoperitoneum. The unenhanced spleen and adrenal glands are unremarkab le. Cholecystectomy. Hepatic metastatic ptosis. Mild bilateral perinephric stranding. Cyst of the int erpolar left kidney measures 5.3 x 4.8 cm unremarkable urinary bladder. Prostatomegaly. Small fat jasmeet led inguinal hernias. Atherosclerosis of the aorta and branch vessels. No lymphadenopathy. Interstitial and peripancreatic edema is moderate with trace ascites within the lesser sac. 6.9 x 8.8 x 6.3 cm fluid collection within the lesser sac and abuts the hepatic body and tail, but some slight ly displaces the adjacent lesser curvature of the stomach with mild layering hyperdensity. Likely yumiko ctive wall thickening of the stomach, duodenum and splenic flexure. No bowel obstruction. Colonic div erticulosis. Normal appendix. Abdominal pelvic varicosities. No acute fracture or destructive bone le ivy. IMPRESSION: 1. Acute pancreatitis with 8.8 cm lesser sac fluid collection suggestive of an acute peripancreatic f luid collection versus pseudocyst. 2. No bowel obstruction or pneumoperitoneum. 3. Cholecystectomy. 4. Cholelithiasis. 5. Additional findings as above. ACT 112: Negative or not required by law. The above report was generated using voice recognition software. It may contain grammatical, syntax o r spelling errors. Electronically signed by: Jose Catalan M.D. 04/30/2025 3:00 PM
--- NOTE | 2025-04-30 15:17 | Emergency Department Note ---
Impression & Plan Acute alcoholic pancreatitis, Hyponatremia, Acute hypokalemia, Nausea & vomiting ED Provider Note CHIEF COMPLAINT: Abdominal pain, nausea, vomiting HISTORY OF PRESENT ILLNESS: This 59-year-old male with segment past medical history of patient alcoholic pancreatitis, cholecystectomy, presents to the emergency department via private vehicle for evaluation of abdominal pain, nausea, and vomiting. Patient states he drink on Tuesday last week (8 days ago). He states that he drank only on Tuesday and immediately after his first drink, he developed sudden onset of severe abdominal pain, nausea, and vomiting. He states he has been unable to tolerate the nausea and vomiting or the pain throughout the week. He states that he has not had anything to eat or drink all week. He states that symptoms and pain feel consistent with pancreatitis he has had in the past. The patient has not taken any medication for his symptoms. He denies any fever or chills. He denies any blood in the emesis. No diarrhea. Patient denies any chest pain or shortness of breath. History provided by: Patient REVIEW OF SYSTEMS: A 3 system review of systems was performed with positives and pertinent negatives listed in the history of present illness. All other systems were reviewed and are negative. ALLERGIES: Morphine PHYSICAL EXAM: VITALS: Vitals are noted on the nurse's note and reviewed by myself. GENERAL: This is a 59-year-old male, in no acute distress, nondiaphoretic, well- developed well-nourished. SKIN: The skin was without rashes, erythema, edema, or bruising. There is no tenting of the skin. Capillary refill less than 2 seconds. HEAD: Normocephalic atraumatic. EYES: Conjunctivae without injection, sclerae without icterus. MOUTH: Mucous membranes moist. NECK: Supple without nuchal rigidity. No lymphadenopathy. No JVD. HEART: Regular rate and rhythm without murmurs gallops or rubs. LUNGS: Clear to auscultation bilaterally without wheezes, rales or rhonchi. No retractions or accessory muscle use. ABDOMEN: Positive bowel sounds x 4. Generalized tenderness to palpation. Abdomen is otherwise soft, without masses or organomegaly. No guarding or rebound tenderness. MUSCULOSKELETAL: No muscle atrophy, erythema, or edema noted. Full range of motion without joint tenderness in all extremities. No tenderness to palpation. Normal gait. Strength 5/5 throughout. NEURO: Patient was alert and oriented to person place and time. Normal sensation to light and sharp touch. No focal neurological deficits. An order was placed for continuous library monitor. The monitor showed a normal sinus rhythm at a ventricular rate of 65 bpm, per my interpretation. EKG was reviewed by myself and found to be normal sinus rhythm at a rate of 65 beats per minute and per my interpretation reveals no ST elevation or depression. No T wave inversion. No significant change when compared to prior EKG on 09/29/2024. Imaging as interpreted by myself and the radiologist revealed findings consistent with acute pancreatitis and likely a pseudocyst, with radiologist interpretation as above. I agree with the radiologist's findings as based upon my independent interpretation. EMERGENCY DEPARTMENT COURSE: The patient was evaluated as above. The patient presents to the emergency department for abdominal pain, nausea, vomiting. He does have history of alcoholic pancreatitis. Medication and developed nausea/vomiting and abdominal pain 8 days ago when he drank some alcohol. He states he has had no p.o. intake in the past 8 days. IV access was obtained, labs were drawn. The patient was hydrated with IV fluids. He was medicated with Toradol and Zofran. Labs reviewed. Per my interpretation, no leukocytosis. Anemia with a hemoglobin of 13.5 and hematocrit 37.1. This appears fairly consistent with the patient's baseline. No thrombocytopenia. INR elevated 9.4. Patient was found to be hyponatremic at 129. He does have a history of hyponatremia chronically. Patient was found to be hypokalemic with a potassium of 2.7. Anion gap is elevated at 15. Creatinine elevated at 1.94. Transaminases are elevated with a AST of 78, ALT of 75, alkaline phosphatase 106. Total bilirubin 1.4. Lipase is 848. Alcohol is negative. Given the patient's persistent generalized abdominal pain, CT imaging was completed. This was concerning for acute pancreatitis with likely a 0.8 cm pseudocyst. The patient's potassium was replenished with 40 mill equivalents total and IV potassium and 40 mill equivalents p.o. potassium chloride elixir. Patient will be admitted to the hospitalist service. I discussed the case with Dr. Lemon, [facility] hospitalist physician. Please see hospitalist dictation regarding ongoing management of this patient. Case was discussed with the attending physician. This visit is during a period of high volume and high acuity in the emergency department. I attest that I have personally reviewed the patient medication list. I attest that I have reviewed the patient's blood pressure and it was found to be normal GCS: 15 In the evaluation and treatment of this patient the following differential diagnoses were entertained: appendicitis, diverticulitis, obstruction, inflammatory bowel disease, renal colic, PUD, biliary pathology, pancreatitis, mesenteric ischemia, aortic pathology, infections, genitourinary, UTI, perforated viscus, as well as others were entertained. The chart was completed utilizing [employer] Speech voice recognition software. Grammatical errors, random word insertions, pronoun errors, and incomplete sentences are an occasional consequence of this system due to software limitations, ambient noise, and hardware issues. Any formal questions or concerns about the content, text, or information contained within the body of this dictation should be directly addressed to the provider for clarification. Past Med/Surg History Problem List Chronic thrombosis of splenic vein Heart failure with mid-range ejection fraction Hyperlipemia Nonspecific ST-T wave electrocardiographic changes Inability to acquire transportation Vitamin B12 deficiency Abnormal finding on imaging Hypomagnesemia Splenic vein thrombosis (Acute) Alcohol abuse (Acute) Macrocytosis without anemia Blood glucose elevated Chronic pancreatitis Elevated serum creatinine Anxiety "HIGH" ANXIETY PER DAUGHTER Cigarette smoker Ischemic cardiomyopathy History of inferior wall myocardial infarction Solitary pulmonary nodule (Chronic) Inhibited sexual excitement (Acute) Fatty liver (Chronic) Depression (Chronic) Asthma (Chronic) Hyponatremia (Acute) Antiplatelet or antithrombotic long-term use Medicare annual wellness visit, initial Screening for malignant neoplasm of prostate Renal insufficiency Esophageal reflux (Acute) Seizure PT DAUGHTER and PATIETN DENIES HX SEIZURE CAD in [place] artery (Chronic) Alcoholism S/P laparoscopic cholecystectomy (09/29/20) Laparoscopic cholecystectomy with lysis of adhesions Dr. Marquez Medical History HTN (hypertension) Right otitis externa Right otitis media URI (upper respiratory infection) Fever History of claustrophobia COVID-19 virus detected MID 04/2020 PREOP TEST FOR CATARACT SX-POSITIVE RESULT [facility] -NO SYMPTOMS Cirrhosis Irregular heart rhythm PT DAUGHTER NOT SURE IF HAD IN HX - F/U DR KASPER- NO DOCUMENTED ARRHYTHMIAS Acid reflux Abdominal pain Acute pancreatitis Acute on chronic pancreatitis with history of alcohol usage - ON GOING F/U DR SHERWOOD Tobacco use HEAVY SMOKER COPD (chronic obstructive pulmonary disease) PT DAUGHTER DENIES LUNG PROBLEMS OR BREATHING ISSUES FOR PT - DENIES SOB WITH STAIRS - REPORTS HEAVY SMOKER [place] (myocardial infarction) 2010- acute inferior wall [place] - total RCA occlusion IN APPROX 1999 (PROCEDURE TO UNCLOG ARTERY PER DAUGHTER - PT REFUSED STENT(S) - OTHER OH'S MILD Surgical History History of surgery on right wrist History of cataract surgery History of surgery Family History Father Family history of pancreatic cancer Family history of diabetes mellitus Mother Family history of diabetes mellitus Aunt Family hx of colon cancer Grandfather (Paternal) Colorectal cancer Other Cirrhosis Heart disease Hypertension Prostate cancer Denies family history of Ovarian cancer Myocardial infarction Breast cancer Social History Smoking Status: Current every day smoker Tobacco Type: Cigarettes Age Started Using Tobacco: 14; packs per day: 0.5; Cigarettes Per Day: 20; Second Hand Exposure: Yes (PARENTS SMOKED); Do You Dip or Chew Tobacco: No; Hx Alcohol Use: Yes ("ALCOHLIC") Alcohol type: beer Hx Substance Use: Yes Preferred Language: Peruvian Communication Ability: Effective Communication Ability Comment: DAUGHTER HELPS FILL OUT PAPERWORK AND WITH MEDICAL CARE NEEDS Investigator Welfare Required: No Beliefs That Will Affect Care: None marital status: Single Current Living Situation: Family Current Living Situation Comment: daughter current occupational status: disabled Feels Safe at Home: Yes Assistive Devices: None Allergies Allergies Allergy/AdvReac Type Severity Reaction Status Date / Time morphine AdvReac Intermediate NAUSEA/VOMI Verified 02/20/25 11:44 TING Home Meds Home Medications Medication Instructions Recorded Confirmed aspirin 81 mg tablet,delayed 81 mg PO QAM 09/22/20 04/30/25 release clonazepam 1 mg tablet 1 mg PO UD PRN as directed 04/30/25 04/30/25 sertraline 25 mg tablet 25 mg PO DAILY 04/30/25 04/30/25 Previous Rx's Medication Instructions Recorded nitroglycerin 0.4 mg sublingual 0.4 mg sublingual Q5M PRN Chest 12/23/22 tablet Pain #30 tabs cyanocobalamin (vitamin B-12) 1,000 mcg PO DAILY #90 tabs 12/06/23 1,000 mcg tablet omeprazole 40 mg capsule,delayed 40 mg PO QAM #90 caps 08/20/24 release metoprolol tartrate 100 mg tablet 100 mg PO BID #180 tabs 11/22/24 atorvastatin 80 mg tablet 80 mg PO HS #90 tabs 01/01/25 gabapentin 600 mg tablet 600 mg PO BID #180 tabs 01/16/25 isosorbide mononitrate 60 mg 30 mg (1/2 x 60 mg) PO BID #90 tabs 01/16/25 tablet,extended release 24 hr lisinopril 40 mg tablet 40 mg PO QAM #90 tabs 01/16/25 ondansetron 4 mg disintegrating 4 mg PO Q6H PRN nausea and 01/28/25 tablet vomiting #30 tabs Results & Data (ED) Vital Signs Vital Signs - 24 hr 04/30/25 12:21 04/30/25 14:35 04/30/25 15:04 Temperature 37.5 C Temperature Source Temporal Artery Scan Pulse Rate 69 65 Pulse Rate [Apical] 65 Respiratory Rate 18 18 Respiratory Effort / Characteristics Non-Labored Spontaneous Non-Labored Spontaneous Respiratory Depth Normal Normal Respiratory Pattern Regular Regular Blood Pressure 112/77 Blood Pressure [Right Arm] 134/77 Blood Pressure Mean 88 Blood Pressure Mean [Right Arm] 96 Pulse Oximetry 98 98 Oxygen Delivery Method Room Air Room Air Sepsis Recent Fever Within 48 Hours No Sepsis New/Unexplained Change in Mental Status No Sepsis Action Taken by Nursing No Action Required Laboratory Data 04/30/25 12:43 04/30/25 12:43 Lab Results 04/30/25 Range/Units 12:43 WBC 8.81 (4.8-10.8) K/ul RBC 3.65 L (4.70-6.10) M/uL Hgb 13.5 L (14.0-18.0) g/dL Hct 37.1 L (42.0-52.0) % MCV 101.6 H (80.0-100.0) fL MCH 37.0 H (25.0-34.0) pg MCHC 36.4 H (32.0-36.0) g/dL RDW Std Deviation 47.1 H (36.4-46.3) fL RDW Coeff of Lisa 12.5 (11.5-14.5) % Plt Count 236 (130-400) K/uL MPV 11.1 (9.4-12.4) fL Immature Gran % (Auto) 0.7 % Neut % (Auto) 68.4 % Lymph % (Auto) 17.6 % Mineral % (Auto) 9.5 % Eos % (Auto) 2.7 % Baso % (Auto) 1.1 % Neut # (Auto) 6.02 (1.40-6.50) K/uL Lymph # (Auto) 1.55 (1.20-3.40) K/uL Mineral # (Auto) 0.84 H (0.11-0.59) K/uL Eos # (Auto) 0.24 (0.00-0.50) K/uL Baso # (Auto) 0.10 (0.00-0.20) K/uL Immature Gran # (Auto) 0.06 (0.01-0.20) K/uL PT 14.6 H (9.0-12.0) Seconds INR 1.4 H (0.9-1.1) APTT 28 (21-31) Seconds PTT Ratio 1.0 Sodium 129 L (136-145) mmol/L Potassium 2.7 L (3.5-5.1) mmol/L Chloride 90 L (98-107) mmol/L Carbon Dioxide 24 (21-32) mmol/L Anion Gap 15 H (3-11) BUN 29 H (6-23) mg/dl Creatinine 1.94 H (0.6-1.4) mg/dl Est Cr Clr Drug Dosing 40.5 ml/min eGFR 38.90 BUN/Creatinine Ratio 14.9 (10-20) Glucose 133 H (70-99(Fasting)) mg/dl Calcium 7.9 L (8.6-10.3) mg/dl Total Bilirubin 1.4 H (0.2-1.0) mg/dl AST 78 H (13-39) U/L ALT 75 H (7-52) U/L Alkaline Phosphatase 106 H (34-104) U/L Total Protein 8.1 (6.0-8.3) gm/dl Albumin 3.8 (3.4-5.0) gm/dl Globulin 4.3 H (2.5-4.0) gm/dl Albumin/Globulin Ratio 0.9 (0.9-2) Lipase 848 H (11-82) U/L Ethyl Alcohol mg/dL < 10.0 (<10.0) mg/dl Administered Medications Potassium Chloride (K Stephen / Wtr) 10 meq in 100 mls @ 100 mls/hr IV Q1H HE Stop: 04/30/25 17:59 Last Admin: 04/30/25 15:39 Dose: 100 mls/hr Documented By: Infusion: 04/30/25 15:26 Dose: Infused Documented By: Admin: 04/30/25 14:26 Dose: 100 mls/hr Documented By: ZOEY Discontinued Medications Sodium Chloride (Nss) 1,000 mls @ 999 mls/hr IV .Q1H1M HE Stop: 04/30/25 15:00 Last Admin: 04/30/25 14:55 Dose: 999 mls/hr Documented By: Infusion: 04/30/25 14:31 Dose: Infused Documented By: Admin: 04/30/25 13:30 Dose: 999 mls/hr Documented By: TODD Ketorolac Tromethamine (Ketorolac 30 Mg/Ml Vial) 30 mg IV NOW STA Stop: 04/30/25 12:58 Last Admin: 04/30/25 13:30 Dose: 30 mg Documented By: TODD Ondansetron HCl (Ondansetron Inj 2 Mg/Ml 2 Ml Vial) 4 mg IV NOW STA Stop: 04/30/25 12:58 Last Admin: 04/30/25 13:31 Dose: 4 mg Documented By: TODD Potassium Chloride (Potassium Chloride 20 Meq/15 Ml Udc) 40 meq PO NOW STA Stop: 04/30/25 13:54 Last Admin: 04/30/25 14:26 Dose: 40 meq Documented By: ZOEY Imaging Data Radiologist's Impression: Abdomen/Pelvis CT 04/30/25 13:[address] WITHOUT CONTRAST CT DOSE: 1004.14 mGy.cm HISTORY: Acute generalized abdominal pain in a patient with history of acute pancreatitis generalized abdominal pain, hx pancreatitis TECHNIQUE: Multiaxial CT images of the abdomen and pelvis were performed without contrast. A dose lowering technique was utilized adhering to the principles of ALA. COMPARISON STUDY: CT pelvis 09/30/2024, CT abdomen and pelvis 11/19/2023 FINDINGS: Cardiomegaly with coronary artery calcifications. Mild dependent subsegmental bibasilar atelectasis. No pneumatosis or pneumoperitoneum. The unenhanced spleen and adrenal glands are unremarkable. Cholecystectomy. Hepatic metastatic ptosis. Mild bilateral perinephric stranding. Cyst of the interpolar left kidney measures 5.3 x 4.8 cm unremarkable urinary bladder. Prostatomegaly. Small fat filled inguinal hernias. Atherosclerosis of the aorta and branch vessels. No lymphadenopathy. Interstitial and peripancreatic edema is moderate with trace ascites within the lesser sac. 6.9 x 8.8 x 6.3 cm fluid collection within the lesser sac and abuts the hepatic body and tail, but some slightly displaces the adjacent lesser curvature of the stomach with mild layering hyperdensity. Likely reactive wall thickening of the stomach, duodenum and splenic flexure. No bowel obstruction. Colonic diverticulosis. Normal appendix. Abdominal pelvic varicosities. No acute fracture or destructive bone lesion. IMPRESSION: 1. Acute pancreatitis with 8.8 cm lesser sac fluid collection suggestive of an acute peripancreatic fluid collection versus pseudocyst. 2. No bowel obstruction or pneumoperitoneum. 3. Cholecystectomy. 4. Cholelithiasis. 5. Additional findings as above. ACT 112: Negative or not required by law. The above report was generated using voice recognition software. It may contain grammatical, syntax or spelling errors. Electronically signed by: Jose Catalan M.D. 04/30/2025 3:00 PM Discharge Plan Visit Data Chief Complaint: Abdominal Pain Stated Complaint: ABD PAIN ED Provider: Sonia Hernandez ED Midlevel Provider: Joceline Jang Discharge Problem: Acute alcoholic pancreatitis, Hyponatremia, Acute hypokalemia, Nausea & vomiting Patient Disposition: Admitted As Inpatient Condition: Good Forms Stand Alone Forms: My [facility], Important Visit Information Prescriptions Prescriptions: No Action nitroglycerin 0.4 mg tablet, sublingual 0.4 mg SL Q5M PRN (Reason: Chest Pain) Qty: 30 5RF metoprolol tartrate 100 mg tablet 100 mg PO BID Qty: 180 3RF atorvastatin 80 mg tablet 80 mg PO HS Qty: 90 3RF isosorbide mononitrate 60 mg tablet extended release 24 hr 30 mg PO BID Qty: 90 3RF gabapentin 600 mg tablet 600 mg PO BID Qty: 180 3RF lisinopril 40 mg tablet 40 mg PO QAM Qty: 90 3RF ondansetron 4 mg tablet,disintegrating 4 mg PO Q6H PRN (Reason: nausea and vomiting) Qty: 30 2RF cyanocobalamin (vitamin B-12) 1,000 mcg tablet 1,000 mcg PO DAILY Qty: 90 3RF omeprazole 40 mg capsule,delayed release(DR/EC) 40 mg PO QAM Qty: 90 3RF aspirin 81 mg Tablet,Delayed Release (Dr/Ec) 81 mg PO QAM sertraline 25 mg tablet 25 mg PO DAILY clonazepam 1 mg tablet 1 mg PO UD PRN (Reason: as directed) Referrals Referrals: Tahir Carpenter DO [Primary Care Provider] -
--- NOTE | 2025-04-30 16:00 | History & Physical Report ---
Date of Service April 30, 2025 Assessment & Plan (1) Pancreatitis: (2) Alcohol abuse: (3) Heart failure with mid-range ejection fraction: (4) Chronic thrombosis of splenic vein: Plan 59-year-old male was had 1 week prehospital history of nausea vomiting abdominal pain. Previous history of alcohol abuse. Previous history of splenic vein thrombosis. Patient did not male eat or drink for 1 week he presents with hyponatremia which is chronic for him, elevated lipase, and evidence of an 8 cm pancreatic fluid collection possibly pseudocyst. Patient is admitted for pain control and further delineation of evaluation of his pseudocyst whether intervention be required. #Pancreatitis. Patient is given n.p.o. with sips and chips. Pain control with parenteral opiates. At this time will not initiate any antibiotics as he is not exhibiting any signs of infection. Likely GI consultation to determine if pigtail catheter would be beneficial to drain the pseudocyst. #Hyponatremia. Patient has history of chronic hyponatremia. He is likely hypovolemic hyponatremic. Currently osmolalities and urine sodium are pending. He will be n.p.o. and without additional IV fluids administered at this time is serving as a fluid restriction. #Significant hypokalemia. Patient was given 7 serafin equivalents of intravenous potassium and will have a magnesium 1 gm rider given when checking both electrolytes in the morning but more importantly checking a potassium evening of admission. #Heart failure midrange ejection fraction. Patient has a history of ischemic cardiomyopathy with an EF in the 45 to 50%. Typically takes isosorbide metoprolol which are continued and he will have his lisinopril aspirin and atorvastatin held. #Alcohol abuse. Patient's last drink was over 7 days ago there is likely low chance of withdrawal at this time. Patient will have intravenous pantoprazole for GI prophylaxis. He will have heparin for DVT prophylaxis. It is noted in the past he did have a splenic vein thrombosis which was treated with apixaban and currently is no longer on chronic therapy for that History of Present Illness Primary Care Provider: Tahir Carpenter DO 59-year-old male with segment past medical history of patient alcoholic pancreatitis, cholecystectomy, presents to the emergency department via private vehicle for evaluation of abdominal pain, nausea, and vomiting. Patient states he drink on Tuesday last week (8 days ago). He states that he drank only on Tuesday and immediately after his first drink, he said he switched from beer to [employer]. He developed sudden onset of severe abdominal pain, nausea, and vomiting. He states he has been unable to tolerate the nausea and vomiting or the pain throughout the week. He states that he has not had anything to eat or drink all week. He states his bowel movements have been brown to green in color but not black. He states that symptoms and pain feel consistent with pancreatitis he has had in the past. The patient has not taken any medication for his symptoms. He denies any fever or chills. He denies any blood in the emesis. Allergies Allergy/AdvReac Type Severity Reaction Status Date / Time morphine AdvReac Intermediate NAUSEA/VOMI Verified 02/20/25 11:44 TING Home Medications Medication Instructions Recorded Confirmed Type aspirin 81 mg tablet,delayed 81 mg PO QAM 09/22/20 04/30/25 History release nitroglycerin 0.4 mg sublingual 0.4 mg sublingual Q5M PRN Chest 12/23/22 04/30/25 Rx tablet Pain #30 tabs cyanocobalamin (vitamin B-12) 1,000 mcg PO DAILY #90 tabs 12/06/23 04/30/25 Rx 1,000 mcg tablet omeprazole 40 mg capsule,delayed 40 mg PO QAM #90 caps 08/20/24 04/30/25 Rx release metoprolol tartrate 100 mg tablet 100 mg PO BID #180 tabs 11/22/24 04/30/25 Rx atorvastatin 80 mg tablet 80 mg PO HS #90 tabs 01/01/25 04/30/25 Rx gabapentin 600 mg tablet 600 mg PO BID #180 tabs 01/16/25 04/30/25 Rx isosorbide mononitrate 60 mg 30 mg (1/2 x 60 mg) PO BID #90 tabs 01/16/25 04/30/25 Rx tablet,extended release 24 hr lisinopril 40 mg tablet 40 mg PO QAM #90 tabs 01/16/25 04/30/25 Rx ondansetron 4 mg disintegrating 4 mg PO Q6H PRN nausea and 01/28/25 04/30/25 Rx tablet vomiting #30 tabs clonazepam 1 mg tablet 1 mg PO UD PRN as directed 04/30/25 04/30/25 History sertraline 25 mg tablet 25 mg PO DAILY 04/30/25 04/30/25 History Past Med/Surg History Problem List Chronic thrombosis of splenic vein Heart failure with mid-range ejection fraction Hyperlipemia Nonspecific ST-T wave electrocardiographic changes Inability to acquire transportation Vitamin B12 deficiency Abnormal finding on imaging Hypomagnesemia Splenic vein thrombosis (Acute) Alcohol abuse (Acute) Macrocytosis without anemia Blood glucose elevated Chronic pancreatitis Elevated serum creatinine Anxiety "HIGH" ANXIETY PER DAUGHTER Cigarette smoker Ischemic cardiomyopathy History of inferior wall myocardial infarction Solitary pulmonary nodule (Chronic) Inhibited sexual excitement (Acute) Fatty liver (Chronic) Depression (Chronic) Asthma (Chronic) Hyponatremia (Acute) Antiplatelet or antithrombotic long-term use Medicare annual wellness visit, initial Screening for malignant neoplasm of prostate Renal insufficiency Esophageal reflux (Acute) Seizure PT DAUGHTER and PATIETN DENIES HX SEIZURE CAD in [place] artery (Chronic) Alcoholism S/P laparoscopic cholecystectomy (09/29/20) Laparoscopic cholecystectomy with lysis of adhesions Dr. Marquez Medical History HTN (hypertension) Right otitis externa Right otitis media URI (upper respiratory infection) Fever History of claustrophobia COVID-19 virus detected Cirrhosis Irregular heart rhythm Acid reflux Abdominal pain Acute pancreatitis Tobacco use COPD (chronic obstructive pulmonary disease) [place] (myocardial infarction) Surgical History History of surgery on right wrist History of cataract surgery History of surgery Family History Father Family history of pancreatic cancer Family history of diabetes mellitus Mother Family history of diabetes mellitus Aunt Family hx of colon cancer Grandfather (Paternal) Colorectal cancer Other Cirrhosis Heart disease Hypertension Prostate cancer Denies family history of Ovarian cancer Myocardial infarction Breast cancer Social History Smoking Status: Current every day smoker Tobacco Type: Cigarettes Age Started Using Tobacco: 14; packs per day: 0.5; Cigarettes Per Day: 20; Second Hand Exposure: Yes (PARENTS SMOKED); Do You Dip or Chew Tobacco: No; Hx Alcohol Use: Yes ("ALCOHLIC") Alcohol type: beer Hx Substance Use: Yes Preferred Language: Czech Communication Ability: Effective Communication Ability Comment: DAUGHTER HELPS FILL OUT PAPERWORK AND WITH MEDICAL CARE NEEDS Frit Mixer Required: No Beliefs That Will Affect Care: None marital status: Single Current Living Situation: Family Current Living Situation Comment: daughter current occupational status: disabled Feels Safe at Home: Yes Assistive Devices: None Review of Systems Review of Systems: Mild distress and fatigue no headache, no visual changes no speech or swallowing issues no chest pain, pressure or palpitations no shortness of breath, cough or wheezes Abdominal pain with nausea and vomiting. No diarrhea no melena no dysuria, hematuria or frequency no focal joint pain or swelling no back pain, CVA tenderness or radicular pain no bruising, bleeding or rashes no focal signs of weakness or numbness or altered sensation no complaints of anxiety or depression.. Physical Exam Physical Exam: The patient appeared well nourished and normally developed. Vital signs as documented. Head exam is normocephalic atraumatic Neck is without JVD, thyromegaly, or carotid bruits. Lungs are clear to auscultation, no focal loss of breath sounds Cardiac exam, Rhythm is regular.. No murmurs, rubs or gallops. Abdominal exam reveals hypoactive bowel sounds epigastric tenderness no rebound no guarding no organomegaly Extremities are nonedematous and both pedal pulses are present Neurologic exam is alert and oriented, no focal loss of strength or sensation Skin is without bruises or rashes Psychologically is without concerns for anxiety or depression.. Results & Data Results & Data Vital Signs (Past 12 Hours) Vital Signs Temp Pulse Pulse Resp BP BP Pulse Ox 04/30/25 15:04 65 04/30/25 14:35 65 18 134/77 98 04/30/25 12:21 99.5 F 69 18 112/77 98 O2 Del Method 04/30/25 15:04 04/30/25 14:35 Room Air 04/30/25 12:21 Room Air Code Status & VTE Plan VTE Prophylaxis Plan VTE Prophylaxis will be ordered: Yes PG Care Time/CCT Total # of Minutes Spent Total Time Spent with Patient: Total time spent is greater than 50% in coordination of care (as documented) at patient's floor/unit and/or counseling patient: Coding Level of Care Code 29219 INT INP/OBS CARE MIN Diagnoses Pancreatitis K85.90 Alcohol abuse F10.10 Heart failure with mid-range ejection fraction I50.20 Chronic thrombosis of splenic vein I82.891
[2025-04-30] MEDS ORDERED: POLYETHYLENE (MIRALAX) 17 GM PACK PO PRN (18:51)
[2025-04-30] MEDS ORDERED: ACETAMINOPHEN 325 MG TAB PO PRN (18:51)
[2025-04-30] MEDS ORDERED: ONDANSETRON INJ 2 MG/ML 2 ML VIAL IV PRN (18:51)
[2025-04-30] MEDS ORDERED: HYDROmorphone INJ 1 MG/ML SYRINGE IV PRN (18:51)
[2025-04-30] MEDS ORDERED: PROMETHAZINE 12.5 MG/50.5 ML BAG IV PRN (18:51)
[2025-04-30] MEDS ORDERED: HYDROmorphone INJ 0.5 MG/0.5 ML SYR IV PRN (18:51)
[2025-04-30] MEDS: MAGNESIUM SULFATE / D5W 1 GM/100 ML BAG IV ONE (19:09)
[2025-04-30] MEDS: ISOSORBIDE MONO EXTENDED REL 30 MG TABCR PO SCH (21:09)
[2025-04-30] MEDS: PANTOprazole 40 MG/10 ML SYR IV SCH (21:10)
[2025-04-30] MEDS: METOPROLOL TARTRATE 50 MG TAB PO SCH (21:10)
[2025-04-30] MEDS: HEPARIN SOD 5,000 UNIT/0.5 ML VIAL SQ SCH (21:12)
[2025-04-30 22:22] LABS: Appearance Urine Clear (Clear); Bacteria Urine Automated None Seen (None Seen); Cast Urine Automated 0-2 /lpf (0-2); Glucose Urine UA Negative (Negative); RBC Urine Automated 0-2 /hpf (0-2); WBC Urine Automated 0-5 /hpf (0-5)
[2025-04-30 23:49] LABS: Anion Gap 9.0 (3-11); Blood Urea Nitrogen 23.0 mg/dl (6-23); Calcium 6.7 mg/dl (8.6-10.3); Carbon Dioxide 21.0 mmol/L (21-32); Chloride 97.0 mmol/L (98-107); Creatinine Clr Calc Pharmacy 46.2 ml/min; Glucose 146.0 mg/dl (70-99(Fasting)); Potassium 3.2 mmol/L (3.5-5.1); Sodium 127.0 mmol/L (136-145)
[2025-05-01 05:26] LABS: Hematocrit (blood only) 32.9 % (42.0-52.0); Hemoglobin 11.7 g/dL (14.0-18.0); Mean Corpuscular Hemoglobin 36.0 pg (25.0-34.0); Mean Corpuscular Volume 101.2 fL (80.0-100.0); Platelet Count 183 K/uL (130-400); RDW Standard Deviation 46.5 fL (36.4-46.3); Red Blood Count 3.25 M/uL (4.70-6.10); White Blood Count 6.42 K/ul (4.8-10.8)
[2025-05-01 05:42] LABS: Anion Gap 11.0 (3-11); Blood Urea Nitrogen 21.0 mg/dl (6-23); Calcium 7.0 mg/dl (8.6-10.3); Carbon Dioxide 19.0 mmol/L (21-32); Chloride 99.0 mmol/L (98-107); Creatinine Clr Calc Pharmacy 54.6 ml/min; Glucose 138.0 mg/dl (70-99(Fasting)); Potassium 3.2 mmol/L (3.5-5.1); Sodium 129.0 mmol/L (136-145)
[2025-05-01 05:43] LABS: Magnesium 1.2 mg/dl (1.7-2.4)
[2025-05-01 05:59] LABS: Lipase 768.0 U/L (11-82)
--- NOTE | 2025-05-01 07:23 | Hospitalist Progress Note ---
Date of Service May 01, 2025 Assessment & Plan (1) Pancreatitis: (2) Alcohol abuse: (3) Heart failure with mid-range ejection fraction: (4) Chronic thrombosis of splenic vein: Plan 59-year-old male with 1 week prehospital history of nausea, vomiting, and abdominal pain. Previous history of alcohol abuse. Previous history of splenic vein thrombosis. Patient did not eat or drink for 1 week, he presents with hyponatremia which is chronic for him, elevated lipase, and evidence of an 8 cm pancreatic fluid collection possibly pseudocyst. Patient is admitted for pain control and further delineation of evaluation of his pseudocyst whether intervention be required. #Pancreatitis. Patient is given n.p.o. with sips and chips. Pain control with parenteral opiates. At this time will not initiate any antibiotics as he is not exhibiting any signs of infection. Likely GI consultation to determine if pigtail catheter would be beneficial to drain the pseudocyst. #Hyponatremia. Patient has history of chronic hyponatremia. He is likely hypovolemic hyponatremic. Currently osmolalities and urine sodium are pending. He will be n.p.o. and without additional IV fluids administered at this time is serving as a fluid restriction. #Significant hypokalemia. Patient was given 7 serafin equivalents of intravenous potassium and will have a magnesium 1 gm rider given when checking both electrolytes in the morning but more importantly checking a potassium evening of admission. #Heart failure midrange ejection fraction. Patient has a history of ischemic cardiomyopathy with an EF in the 45 to 50%. Typically takes isosorbide metoprolol which are continued and he will have his lisinopril aspirin and atorvastatin held. #Alcohol abuse. Patient's last drink was over 7 days ago there is likely low chance of withdrawal at this time. Patient will have intravenous pantoprazole for GI prophylaxis. He will have heparin for DVT prophylaxis. It is noted in the past he did have a splenic vein thrombosis which was treated with apixaban and currently is no longer on chronic therapy for that. Admission and Anticipated Discharge Date Admission Date: April 30, 2025 Review of Systems Review of Systems: per HPI Physical Exam Physical Exam: GA: well groomed, well nourished in no apparent distress. AAOx3 HEENT: head normocephalic, atraumatic. EOMI RESP: vesicular breath sounds b/l. No wheezes, rhonchi, or rales CARDIOVASCULAR: S1 and S2 heard. No murmurs, rubs, or gallops. Radial pulses 2+ b/l RRR GI: Normoactive bowel sounds, no tenderness or masses felt to palpation MSK: no gross abnormalities or focal deficits SKIN: warm, dry, no edema PSYCH: appropriate mood and affect NEURO: no focal deficits. speech fluent Results & Data Results & Data Vital Signs (Past 12 Hours) Vital Signs Pulse Pulse Resp BP Pulse Ox O2 Del Method 05/01/25 06:00 56 L 18 144/89 H 95 Room Air 05/01/25 03:00 67 18 143/98 H 96 Room Air 05/01/25 01:00 63 18 139/77 97 Room Air 04/30/25 23:28 61 04/30/25 21:00 67 16 153/90 H 98 Room Air
[2025-05-01] MEDS: LACTATED RINGER'S 1,000 ML IV SCH (09:49)
[2025-05-01] MEDS: MAGNESIUM SULFATE / D5W 1 GM/100 ML BAG IV SCH (10:06)
[2025-05-01] MEDS: POTASSIUM CHLORIDE / WTR 10 MEQ/100 ML PLCT IV SCH (10:06)
[2025-05-01 10:07] VITALS: O2SAT 98
--- NOTE | 2025-05-01 10:17 | Gastrointestinal Consultation ---
Date of Consultation May 01, 2025 Assessment & Plan (1) Acute pancreatitis: (2) Pancreatic pseudocyst: Plan Patient admitted with acute pancreatitis in the setting of alcohol use. Imaging was suggestive of pancreatic pseudocyst. GI consulted for opinion of draining this. He seems to be doing better at this time and is tolerating clears. I discussed with Dr. Back. - recommend EUS as an outpatient for further evaluation of pseudocyst. - recommend supportive care. - I advised that he cease alcohol use. Supervising Physician Co-Signing Physician Notes I personally saw and examined the patient. I have reviewed the chart and agree with the documentation provided by the [facility] including discussion about the assessment, treatment and plan. Briefly, 59 year old male with a past medical history of alcoholic pancreatitis, cholecystectomy who presented to the ED on 04/30 with complaints of abdominal pain, nausea, and vomiting which had been ongoing for the 8 days prior. Patient states symptoms started while he was using alcohol. He developed sudden onset of severe abdominal pain, nausea, and vomiting. He states he has been unable to tolerate the nausea and vomiting or the pain throughout the week and had poor oral intake. He felt his symptoms and pain felt consistent with pancreatitis. CT: Acute pancreatitis with 8.8 cm lesser sac fluid collection suggestive of an acute peripancreatic fluid collection versus pseudocyst. No acute role for drainage of this fluid collection as the patient has no fevers he is able to eat and this is starting to coalesce and form eventually a pseudocyst. I told him that if he does not stop drinking he could end up with chronic pancreatitis and a large pseudocyst that would need endoscopic draining at a tertiary care center. (Transgastric EUS guided stent drainage). He does not want to stay here for his acute pancreatitis and wants to go home immediately. He has a mother who has Alzheimer's and is responsible for her care. He told me that he is able to drink liquids without pain. I told him to take liquids for 24 to 48 hours and then start a soft diet very slowly he understands a plan and wants to leave. History of Present Illness Reason for Consultation: pancreatic pseudocyst. Requesting Physician: Ulisses Smith MD Attending Physician: Sandra Mcdonough DO History of Present Illness Patient is a 59 year old male with a past medical history of alcoholic pancreatitis, cholecystectomy who presented to the ED on 04/30 with complaints of abdominal pain, nausea, and vomiting which had been ongoing for the 8 days prior. Patient states symptoms started while he was using alcohol. He developed sudden onset of severe abdominal pain, nausea, and vomiting. He states he has been unable to tolerate the nausea and vomiting or the pain throughout the week and had poor oral intake. He felt his symptoms and pain felt consistent with pancreatitis he has had in the past - he tells me this happened twice before. Since coming to the hospital, he had CT as per below. He tells me that his pain is now under control. He has not had further nausea or emesis and has been able to tolerate liquids. The remainder of the GI ROS were unremarkable. 05/01/25 wbc 6.42, hgb 11.7, hct 32.9, plts 183, Na 129, K 3.2, BUN 21, Cr 1.44, lipase 768. 04/30/25 T bili 1.4, AST 78, ALT 75, Alk 106, Lipase 848 04/30/25 CT - 1. Acute pancreatitis with 8.8 cm lesser sac fluid collection suggestive of an acute peripancreatic fluid collection versus pseudocyst. 2. No bowel obstruction or pneumoperitoneum. 3. Cholecystectomy. 4. Cholelithiasis. Allergies Allergy/AdvReac Type Severity Reaction Status Date / Time morphine AdvReac Intermediate NAUSEA/VOMI Verified 02/20/25 11:44 TING Home Medications Medication Instructions Recorded Confirmed Type aspirin 81 mg tablet,delayed 81 mg PO QAM 09/22/20 04/30/25 History release nitroglycerin 0.4 mg sublingual 0.4 mg sublingual Q5M PRN Chest 12/23/22 04/30/25 Rx tablet Pain #30 tabs cyanocobalamin (vitamin B-12) 1,000 mcg PO DAILY #90 tabs 12/06/23 04/30/25 Rx 1,000 mcg tablet omeprazole 40 mg capsule,delayed 40 mg PO QAM #90 caps 08/20/24 04/30/25 Rx release metoprolol tartrate 100 mg tablet 100 mg PO BID #180 tabs 11/22/24 04/30/25 Rx atorvastatin 80 mg tablet 80 mg PO HS #90 tabs 01/01/25 04/30/25 Rx gabapentin 600 mg tablet 600 mg PO BID #180 tabs 01/16/25 04/30/25 Rx isosorbide mononitrate 60 mg 30 mg (1/2 x 60 mg) PO BID #90 tabs 01/16/25 04/30/25 Rx tablet,extended release 24 hr lisinopril 40 mg tablet 40 mg PO QAM #90 tabs 01/16/25 04/30/25 Rx ondansetron 4 mg disintegrating 4 mg PO Q6H PRN nausea and 01/28/25 04/30/25 Rx tablet vomiting #30 tabs clonazepam 1 mg tablet 1 mg PO UD PRN as directed 04/30/25 04/30/25 History sertraline 25 mg tablet 25 mg PO DAILY 04/30/25 04/30/25 History folic acid 400 mcg tablet 400 mcg PO DAILY #30 tabs 05/01/25 Rx thiamine HCl (vitamin B1) 100 mg 100 mg PO DAILY #30 caps 05/01/25 Rx capsule Patient History Medical History HTN (hypertension) Right otitis externa Right otitis media URI (upper respiratory infection) Fever History of claustrophobia COVID-19 virus detected MID 04/2020 PREOP TEST FOR CATARACT SX-POSITIVE RESULT [facility] -NO SYMPTOMS Cirrhosis Irregular heart rhythm PT DAUGHTER NOT SURE IF HAD IN HX - F/U DR KASPER- NO DOCUMENTED ARRHYTHMIAS Acid reflux Abdominal pain Acute pancreatitis Acute on chronic pancreatitis with history of alcohol usage - ON GOING F/U DR SHERWOOD Tobacco use HEAVY SMOKER COPD (chronic obstructive pulmonary disease) PT DAUGHTER DENIES LUNG PROBLEMS OR BREATHING ISSUES FOR PT - DENIES SOB WITH STAIRS - REPORTS HEAVY SMOKER NC (myocardial infarction) 2010- acute inferior wall NC - total RCA occlusion IN APPROX 1999 (PROCEDURE TO UNCLOG ARTERY PER DAUGHTER - PT REFUSED STENT(S) - OTHER NC'S MILD Surgical History History of surgery on right wrist History of cataract surgery History of surgery Family History Father Family history of pancreatic cancer Family history of diabetes mellitus Mother Family history of diabetes mellitus Aunt Family hx of colon cancer Grandfather (Paternal) Colorectal cancer Other Cirrhosis Heart disease Hypertension Prostate cancer Denies family history of Ovarian cancer Myocardial infarction Breast cancer Social History Smoking Status: Unknown if ever smoked Tobacco Type: Cigarettes Age Started Using Tobacco: 14; packs per day: 0.5; Cigarettes Per Day: 20; Second Hand Exposure: Yes (PARENTS SMOKED); Do You Dip or Chew Tobacco: No; Hx Alcohol Use: Yes Alcohol type: beer and hard liquor Hx Substance Use: No Preferred Language: Wolof Communication Ability: Effective Communication Ability Comment: DAUGHTER HELPS FILL OUT PAPERWORK AND WITH MEDICAL CARE NEEDS [place] Hand Required: No Beliefs That Will Affect Care: None marital status: Single Current Living Situation: Family Current Living Situation Comment: daughter current occupational status: disabled Other Information That Helps Us Care for You: No Feels Safe at Home: Yes Safety Concerns: Feels Safe At This Time Assistive Devices: None Review of Systems Review of Systems: All systems reviewed & are unremarkable except as noted in HPI & below Physical Exam Constitutional: WD/WN, vitals as above Respiratory: normal respiratory effort, lungs clear to auscultation Cardiovascular: Rate/Rhythm: regular rate and regular rhythm Gastrointestinal (Abdomen): normal bowel sounds, soft, nontender, no hepatosplenomegaly Psychiatric: Orientation: alert and oriented x 3 Results & Data Vital Signs (Past 12 Hours) Vital Signs Pulse Pulse Resp BP BP Pulse Ox O2 Del Method 05/01/25 09:00 150/84 H 05/01/25 09:00 98 Room Air 05/01/25 08:48 99 Room Air 05/01/25 08:46 158/95 H 05/01/25 07:48 67 22 96 Room Air 05/01/25 07:30 71 21 98 Room Air 05/01/25 07:01 167/87 H 05/01/25 07:00 67 15 96 Room Air 05/01/25 06:00 56 L 18 144/89 H 95 Room Air 05/01/25 03:00 67 18 143/98 H 96 Room Air 05/01/25 01:00 63 18 139/77 97 Room Air 04/30/25 23:28 61 Coding Level of Care Code 48744 INT INP/OBS CARE 2/55MIN Diagnoses Alcohol-induced acute pancreatitis, unspecified complication status K85.20 Acute pancreatitis complication: unspecified Pancreatitis type: alcohol induced Pancreatic pseudocyst K86.3 (1) Acute pancreatitis Acute pancreatitis complication: unspecified Pancreatitis type: alcohol induced Qualified Code(s): K85.20 - Alcohol induced acute pancreatitis without necrosis or infection
[2025-05-01] MEDS: POTASSIUM CHLORIDE CRTAB 20 MEQ TABCR PO STA (10:32)
[2025-05-01] MEDS: MAGNESIUM OXIDE 400 MG TAB PO STA (11:46)
--- NOTE | 2025-05-01 12:49 | Discharge Summary ---
Date of Service May 01, 2025 Admission HPI Per Admitting Provider 59-year-old male with segment past medical history of patient alcoholic pancreatitis, cholecystectomy, presents to the emergency department via private vehicle for evaluation of abdominal pain, nausea, and vomiting. Patient states he drink on Tuesday last week (8 days ago). He states that he drank only on Tuesday and immediately after his first drink, he said he switched from beer to Jesús Koenig. He developed sudden onset of severe abdominal pain, nausea, and vomiting. He states he has been unable to tolerate the nausea and vomiting or the pain throughout the week. He states that he has not had anything to eat or drink all week. He states his bowel movements have been brown to green in color but not black. He states that symptoms and pain feel consistent with pancreatitis he has had in the past. The patient has not taken any medication for his symptoms. He denies any fever or chills. He denies any blood in the emesis. Principal Diagnosis Pancreatitis, HypoNatremia, Hypokalemia, Hypomagnesium Discharge Exam GA: well nourished in no apparent distress laying in bed. AAOx3 HEENT: head normocephalic, atraumatic. EOMI RESP: vesicular breath sounds b/l. No wheezes, rhonchi, or rales CARDIOVASCULAR: S1 and S2 heard. No murmurs, rubs, or gallops. Radial pulses 2+ b/l RRR GI: Normoactive bowel sounds, no tenderness or masses felt to palpation MSK: no gross abnormalities or focal deficits SKIN: warm, dry, no edema PSYCH: appropriate mood and affect NEURO: no focal deficits. speech fluent Discharge Data Allergies Allergy/AdvReac Type Severity Reaction Status Date / Time morphine AdvReac Intermediate NAUSEA/VOMI Verified 02/20/25 11:44 TING Consultations 04/30/25 15:39 ED Decision to Admit Stat 04/30/25 18:51 Consult Gastroenterology Routine Ordered Studies 04/30/25 13:53 CT abd pelvis wo con Stat Hospital Course (1) Pancreatitis: (2) Alcohol abuse: (3) Heart failure with mid-range ejection fraction: (4) Chronic thrombosis of splenic vein: (5) Hypomagnesemia: (6) Hyponatremia: Plan 59-year-old male with 1 week prehospital history of nausea, vomiting, and abdominal pain. Previous history of alcohol abuse. Previous history of splenic vein thrombosis. Patient did not eat or drink for 1 week, he presents with hyponatremia which is chronic for him, elevated lipase, and evidence of an 8 cm pancreatic fluid collection possibly pseudocyst. Patient admitted for pain c ontrol and further delineation of evaluation of his pseudocyst whether intervention be required. #Pancreatitis. 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 Advised 400-600mg of Ibuprofen or 650-1000mg of Tylenol tid prn for pain management until seen by PCP. Adequate hydration and advance diet as tolerated ETOH cessation encouraged Needs close follow-up with GI regarding EUS for further evaluation/intervention of fluid collection/pseudocyst. Most likely [facility] or [facility]. #Hyponatremia. #Significant hypokalemia #Hypomagnesium Patient has history of chronic hyponatremia. He is likely hypovolemic hyponatremic. Currently osmolalities and urine sodium are WNL. Na 129, K 2.7- >3.2, Mg 1.2 this AM. Pt declined repletion at times. -s/p maintenance fluids while here -s/p 7mEq of IV KCl -s/p 8mEq of PO KCl -s/p 1g IV and 800mg PO Mg repletion -CMP and Mg level as outpatient and f/u with PCP #Heart failure midrange ejection fraction. Patient has a history of ischemic cardiomyopathy with an EF in the 45 to 50%. -restart home meds when home #Alcohol abuse. Patient's last drink was over 8 days ago there is likely low chance of withdrawal at this time. Encouraged alcohol cessation. Thiamine and Folate (or multivitamin) supplementation daily. Total Time Total Time Spent Total Time Spent (In Minutes): please see attending attestation Discharge Plan Discharge Items Patient Disposition: Home - Self-Care Reason For Visit: PANCREATITIS, HYPONAT Discharge Diagnosis: Pancreatitis, Hypokalemia, Hypomagnesium Condition on Discharge: Good Activity: Resume your previous activity Non-emergency contact: Primary Care Provider Call non-emergency contact if: your symptoms worsen, your pain is not controlled, your pain is worsening and you have a fever Follow-up/Referrals: Tahir Carpenter, [Primary Care Provider] - Diet: Regular Ambulatory Orders: Complete Blood Count with Diff (Routine) Timeframe: 1 Week Location: Determined by Patient Ordered By: Ryley Bush Comprehensive Metabolic Panel (Routine) Timeframe: 1 Week Location: Determined by Patient Ordered By: Ryley Bush Magnesium (Routine) Timeframe: 1 Week Location: Determined by Patient Ordered By: Ryley Bush Addtl Attending Provider Instructions: You were admitted to the hospital for Pancreatitis. You were treated with IV fluids, pain medication, and anti-nausea medications. You were also found to have low sodium, potassium, and magnesium levels. You were given IV fluids, potassium and magnesium supplementation (some of which you declined) to help correct your electrolytes (sodium, potassium, magnesium). On imaging, it was found that you have an 8.8cm fluid collection on your pancreas for which you will need to be seen outpatient with Gastroenterology for management and a procedure to help drain the fluid. You noticed improvement of your symptoms after being treatments. Please continue to abstain from alcohol. Medications Your medication list has been reviewed and reconciled. An updated list is included with your discharge paperwork; please review this list closely and make note of any changes. You should take an over the counter vitamin B1 and folate supplement daily. These were sent to your pharmacy. Or you may take a multivitamin supplement. Please advance your diet as tolerated. For pain, you may take Ibuprofen 400- 600mg or Tylenol 650mg up to three times per day as needed until you follow up with your PCP. Take your medications as instructed; do not skip a dose. Make sure all of your doctors know every medicine you are taking (including tuwg-paa-bzaziqd medicines, vitamins, and supplements). Call your PCP before taking any new medicines because some of these may interact with your current medications, or may make your symptoms worse. Follow-up appointments: Make a follow-up appointment with your PCP within the next week. It is very important that you follow up with them shortly after discharge from the hospital. Keep all your follow-up appointments as already scheduled. If you cannot make an appointment, notify your provider. You will need to receive labs (CBC, CMP, Magnesium level) as an outpatient. These are ordered. Please bring a copy of this discharge summary with you to your next office appointment so that your provider can review it at that time and stay updated on your hospitalization and potential changes in your care. Contact your PCP if your symptoms return or worsen. Call 911 or go to the ER if you experience any of the following: Sudden, severe abdominal pain or nausea/vomiting Severe chest pain, or chest pain that radiates (moves) to your jaw or arm Sudden, severe shortness of breath or difficulty breathing Thank you for allowing us to participate in your care. Pending Studies at Discharge: No Stand-Alone Forms: [facility], Smoking Cessation Medications and DC Order Prescriptions: New thiamine HCl (vitamin B1) 100 mg capsule 100 mg PO DAILY Qty: 30 0RF folic acid 400 mcg tablet 400 mcg PO DAILY Qty: 30 0RF Continued nitroglycerin 0.4 mg tablet, sublingual 0.4 mg SL Q5M PRN (Reason: Chest Pain) Qty: 30 5RF metoprolol tartrate 100 mg tablet 100 mg PO BID Qty: 180 3RF atorvastatin 80 mg tablet 80 mg PO HS Qty: 90 3RF isosorbide mononitrate 60 mg tablet extended release 24 hr 30 mg PO BID Qty: 90 3RF gabapentin 600 mg tablet 600 mg PO BID Qty: 180 3RF lisinopril 40 mg tablet 40 mg PO QAM Qty: 90 3RF ondansetron 4 mg tablet,disintegrating 4 mg PO Q6H PRN (Reason: nausea and vomiting) Qty: 30 2RF cyanocobalamin (vitamin B-12) 1,000 mcg tablet 1,000 mcg PO DAILY Qty: 90 3RF omeprazole 40 mg capsule,delayed release(DR/EC) 40 mg PO QAM Qty: 90 3RF aspirin 81 mg Tablet,Delayed Release (Dr/Ec) 81 mg PO QAM sertraline 25 mg tablet 25 mg PO DAILY clonazepam 1 mg tablet 1 mg PO UD PRN (Reason: as directed) Discharge Orders: Discharge Order (Routine); Ordered 05/01/25 Ordered By: Ryley Bush Admission Data Admit Date/Time: 04/30/25 15:50 Attending Provider: Sandra Mcdonough Admit Provider: Ulisses Smith Primary Care Provider: Tahir Carpenter Other Providers: Philippe Lemon; Srinivas Baird Other Interventions: Discharge Summary Assessment (RN) Last Done: 05/01/25 13:01 Supervising Physician Co-Signing Physician Notes I personally examined the patient and verified hammond points of history and exam, discussed case, and agree with decision making and plan documented by Dr. Bush. Patient is a 59-year-old male with pertinent past medical history of alcoholic pancreatitis, CAD, HTN, HLD, ischemic cardiomyopathy presenting with nausea, vomiting, and abdominal pain and on admission for pancreatitis. Patient recently had a relapse in his alcohol use which likely contributed to exacerbation of pancreatitis. Multiple electrolyte abnormalities were present and patient received potassium and magnesium supplementation. Patient also had an JUANA at admission that improved with IVF. Patient was adamant about leaving the hospital, he cares for his 80-year-old mother with Alzheimer's and had someone watching her during his hospitalization. He was recommended to continue thiamine and folate supplementation in setting of alcohol cessation. We reviewed different medications that may assist him in treatment of his alcohol use disorder. Patient was seen by gastroenterology in the hospital and should maintain follow-up outpatient. Pancreatic CT showed 8.8 cm peripancreatic fluid collection that patient was recommended to seek evaluation at either [facility] or [facility] for EUS drainage. Patient was recommended to maintain close follow-up with his PCP, he will need repeat labs to check his electrol ytes. Total attending time 48 minutes Resident Activity Tracking Resident Involvement: Resident Care Provided Care Provided: Adult [facility] Medicine
[2025-05-01 13:10] VITALS: BP 145/83; PULSE 66; RESP 18
--- NOTE | 2025-05-03 16:42 | Electrocardiogram Report ---
Test Reason : Blood Pressure : */* mmHG Vent. Rate : 65 BPM Atrial Rate : 65 BPM P-R Int : 156 ms QRS Dur : 98 ms QT Int : 430 ms P-R-T Axes : 47 45 63 degrees QTcB Int : 447 ms Normal sinus rhythm Nonspecific ST abnormality Abnormal ECG When compared with ECG of 29-Sep-2024 23:29, No significant change was found Confirmed by Wally lAvarado ([id number]) on 05/03/2025 4:42:02 PM Referred By: REFERRED SELF Confirmed By: Wally Alvarado
== END 2025-05-01 13:01 | disposition home or self-care (01) | DRG 439 ==
LOC: ED 12:12 → SUATTDRO 15:50 → INTOOBSV 15:50 → EDINP 15:50